=== PATIENT | female | born 1990 | race Caucasian/White ===

== ENCOUNTER 2022-04-19 06:35 | Inpatient (IN) | payer OTHER, SELFPAY ==
[2022-04-19] VITALS (86 sets, daily range): BP systolic 102–155; BP diastolic 55–89; PULSE 47–82; RESP 16–20; TEMP 36.6–36.9; O2SAT 93–100; BMI 63.6
[2022-04-19 07:10] LABS: Glucose, Point-of-Care* 88 mg/dl (60-115)
[2022-04-19 07:12] LABS: Hemoglobin* 11.9 gm/dL (12.0-16.0)
[2022-04-19] MEDS: OXYTOCIN 30 unit/500 ML in NS 30 UNIT/500 ML BAG IVPB (07:43)
[2022-04-19 07:56] LABS: SARS PCR* Negative SARS-CoV-2 (Negative)
[2022-04-19 08:53] LABS: Glucose, Point-of-Care* 85 mg/dl (60-115)
[2022-04-19] MEDS: LACTATED RINGERS 1000 ML 1,000 ML 125 ML IV ×2 (10:02→14:57)
--- NOTE | 2022-04-19 12:00 | W.PM.LDBA ---
Subjective History of Present Illness Narrative: Patient is being admitted to Labor and Delivery for IOL. She is a 32 year old at 41w0d GA. Her full history and physical was dictated by MELISSA Richards on 03.21.2022. Please see this for details. YFN of 04/12/2022 by LMP and confirmed with the first-trimester ultrasound. Patient is group B strep negative, rubella nonimmune, herpes zoster diagnosed to 01/2022, anemia, and diet controlled gestational diabetes. OBSTETRICAL HISTORY: 11/23/2020 right ectopic LMP: 07/06/2021. Last pap: 2016?. No history of abnormal pap, STI or PID, MRSA MEDICAL HISTORY: No chronic medical problems . 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 History of marijuana use, last use greater than 2 months ago. FAMILY AND GENETIC HISTORY: Negative for recurrent loss, defects, inheritable disease. OB - H&P: Exam Physical Exam: Vital signs: Temp Pulse Resp BP Pulse Ox 97.7 F 72 16 114/75 97 04/21/22 08:10 04/21/22 08:10 04/21/22 00:40 04/21/22 08:10 04/21/22 08:10 Constitutional: Constitutional: no acute distress Routine HEENT Exam: Head: Present normal inspection Detailed Labor and Delivery Exam: Patient Gravid: yes Tachysystole: No Routine Neurological Exam: Present alert, CN II-XII intact and moving all extremities Routine Psychiatric Exam: Present normal affect, normal thought process and cooperative OB - Problem Based A/P Additional Plan (1) Elective induction of labor planned: Start date: 04/19/22 Start time: 12:00 Problem details: postdates with well-controlled GDMA1 Status: Deleted Plan Admit to Center. Comfort measures as desired. Delivery/Labor/Induction Plan Plan: induction Induction method: AROM
[2022-04-19 12:13] LABS: Glucose, Point-of-Care* 77 mg/dl (60-115)
[2022-04-19 14:14] LABS: Glucose, Point-of-Care* 125 mg/dl (60-115)
--- NOTE | 2022-04-19 15:15 | PM.OBPNL ---
Pain Control Time Seen by Provider: 15:00 Comments: Moderate discomfort. No new concerns. Wondering how labor is progressing. Contractions Monitor mode: External Contraction frequency: 3 Pelvic Exam Dilation (cm): 8 Effacement (%): 100 Station: +1 Fetus (Single) Amniotic Membrane Status: AROM status: Category l Comments: scant fluid, positive scalp stim response. Assessment and Plan Pitocin rate (mU/min): 11 Assessment: induction ongoing Plan: continue present management Comments: Patient requesting epidural. RN beginning crystalloid bolus and notifying Anesthesia.
--- NOTE | 2022-04-19 15:57 | P.ANBPRC_ITS ---
PFSH PFS Social History Smoking Status: Never smoker Meds Home Medications and Allergies Home Medications Medication Instructions Recorded Confirmed Type ferrous sulfate PO 04/19/22 History prenat.vits,david,eix-lxgv-qhdcm 04/19/22 History Results Labs Labs: Laboratory Results - last 24 hr 04/19/22 04/19/22 04/19/22 07:00 07:00 07:00 Hgb 11.9 L SARS-CoV-2 (PCR) POC Glucose 88 Blood Type A Negative Antibody Screen POSITIVE Antibody Identification Anti-D 04/19/22 04/19/22 04/19/22 07:17 08:51 12:13 Hgb SARS-CoV-2 (PCR) Negative SARS-CoV-2 POC Glucose 85 77 Blood Type Antibody Screen Antibody Identification 04/19/22 14:13 Hgb SARS-CoV-2 (PCR) POC Glucose 125 H Blood Type Antibody Screen Antibody Identification Vital Signs Vital Signs: Last Vital Signs Temp 98 F 04/19/22 13:48 Pulse 67 04/19/22 14:55 Resp 18 04/19/22 13:48 BP 134/84 04/19/22 14:55 Pulse Ox 98 04/19/22 09:20 Weight: 74.298 kg Height: 160.02 cm Anesthesia Procedures Epidural Insertion Patient Location: OB Reason for Block: primary anesthetic Patient Position: sitting Performed By: Emmanuel Ness Preanesthetic Checklist: IV checked, risks and benefits discussed, surgical consent, monitors and equipment checked, pre-op evaluation, timeout performed and anesthesia consent Prep: chlorhexidine gluconate Monitoring: blood pressure monitoring, property assessment monitor, continuous pulse oximetry and heart rate Approach: midline Vertebral Space: lumbar (1-5) Epidural Technique: ALIZA saline Needle Type: Tuohy needle Injection Technique: continuous shot Needle gauge: 17 Needle Length (cm): 10 cm Needle Insertion Depth (cm): 6 Catheter Gauge: 19 Catheter Type: multi-orifice Catheter at skin depth (cm): 12 Test Dose Result: negative and lidocaine 1.5% with epinephrine 1 to 200,000 Events: other
[2022-04-19] MEDS: ROPIVACAINE 0.2 % PF 10 ML INJ 20 MG EPIDURAL (16:09)
[2022-04-19] MEDS: ROPIVACAINE 0.2% 100 ml 100 ML 12 MG EPIDURAL (16:09)
[2022-04-19] MEDS: LIDOCAINE 2% (PF) 5 ML VIAL EPIDURAL (16:09)
--- NOTE | 2022-04-19 17:01 | W.ANESCHARGE ---
Anesthesia Charges Start Date/Time Anesthesia Start Date: 04/19/22 Anesthesia Start Time: 15:50 Stop Date/Time Anesthesia Stop Date: 04/19/22 Anesthesia Stop Time: 16:50 Summary Emergency: No
[2022-04-19] MEDS: PHENYLEPHRINE 100 MCG/ML SYRINGE IVP (17:23)
[2022-04-19] MEDS: 5 % DEXTROSE/0.9% SOD CHLORIDE 1,000 ML 125 ML IV (18:10)
[2022-04-19 18:17] LABS: Glucose, Point-of-Care* 76 mg/dl (60-115)
--- NOTE | 2022-04-19 22:41 | PM.OBPRCVD ---
Procedure Delivery date: 04/19/22 Procedure Done: Global Events: GDMA1 (well-controlled), Labor Induction (for postdates) and Other (Rh negative. Herpes zoster, treated with Valtrex. Rubella NON-immune) Intrapartal Events: Labor Induction (Pitocin) Induction method: per pitocin protocol Delivery augmentation: rupture of membranes Delivery monitor: external FHT and internal FHT Route of delivery: Episiotomy description: None Laceration description: Perineal - 2nd Degree Delivery repair: Vicryl (3-0) Estimated blood loss (mL): 100 Anesthesia type: Epidural Disposition: floor Complications: None apparent Narrative: 32yo G2 now P1011 with surprise fetus at 41w0d admitted for IOL because of postdates. GDMA1 well-controlled. First episode of herpes zoster treated in second half of . Rh negative. GBS negative. Rubella NON-immune. Received Tdap. IOL with Pitocin protocol, augmented with AROM scant, clear. Excellent comfort with epidural. IV Pitocin wide open at . DIANELYS female dried, stimulated, placed on maternal abdomen. Cord clamped and cut after 60sec. Spontaneous, intact, trivascular placenta. Second-degree perineal laceration repaired with 3-0 Vicryl in usual fashion. EBL 100. No apparent complications. Sponge and sharp counts correct.. Infant Gender: Female presentation: vertex Placental Delivery Description: Spontaneous Cord Description: 3 Vessels OB Vag Delivery Procedures Additional Procedures Laceration Repair: Yes (second degree perineal)
[2022-04-20] VITALS (9 sets, daily range): BP systolic 102–114; BP diastolic 58–73; PULSE 60–75; RESP 16–18; TEMP 36.3–36.8; O2SAT 97
[2022-04-20] MEDS: IBUPROFEN 600 MG TABLET PO ×4 (01:50→23:51)
[2022-04-20] MEDS: ACETAMINOPHEN 500 MG TABLET 1000 MG PO ×2 (04:04→10:34)
[2022-04-20 07:19] LABS: Hemoglobin* 11.1 gm/dL (12.0-16.0)
[2022-04-20 08:18] LABS: Glucose, Point-of-Care* 79 mg/dl (60-115)
[2022-04-20 08:21] LABS: Glucose, Point-of-Care* 80 mg/dl (60-115)
--- NOTE | 2022-04-20 10:28 | SUR.ANES ---
Post epidural/delivery round. Pt happy with epidural. Back is fine. strength and motor normal. No complaints.
--- NOTE | 2022-04-20 10:45 | PM.OBPNVD1 ---
OB - PN:Subj Subjective Time Seen by Provider: 10:45 Date Seen: 04/20/22 Interval history: Elida is a 32-year-old 2 now para 1011 who had an uncomplicated IOL and vaginal delivery yesterday. induction was for GDM A1; Pitocin protocol was used, along with AROM. A second-degree perineal laceration was repaired in the usual fashion. , she is doing well. Lochia is moderate, without clots. She is voiding fully. Uterine and perineal pain is controlled with ibuprofen and acetaminophen. Daughter Julia is sleepy, and learning to latch. Baby is Rh positive. OB - PN: Obj Exam Physical Exam: Vital signs: Temp Pulse Resp BP Pulse Ox 97.7 F 63 18 109/71 97 04/20/22 07:22 04/20/22 07:22 04/20/22 07:22 04/20/22 07:22 04/20/22 07:22 Constitutional: Constitutional: no acute distress Routine Respiratory Exam: Comments: Normal respirations. No cough or wheeze. Routine Cardiovascular Exam: Comments: Regular rate and pressure. Minimal peripheral edema. Routine Abdominal Exam: Comments: Fundus firm at umbilicus. Routine Neurological Exam: Neurological: Present alert, CN II-XII intact and normal speech Routine Psychiatric Exam: Psychiatric: Present normal affect and normal thought process OB - PN: Obj Data Labs Labs: Laboratory Results - last 24 hr 04/19/22 04/19/22 04/19/22 07:00 12:13 14:13 Hgb POC Glucose 77 125 H Antibody Identification Anti-D 04/19/22 04/19/22 04/20/22 18:17 21:45 06:30 Hgb POC Glucose 76 79 80 Antibody Identification 04/20/22 07:05 Hgb 11.1 L POC Glucose Antibody Identification OB - PN: A/P Vaginal Delivery Assessment and Plan (1) Lactating mother: Status: Acute Assessment and Plan: assist with (2) Rh incompatibility in , delivered: Status: Acute Assessment and Plan: Rh IgG to be given. Plan Plan: routine care
[2022-04-21 00:40] VITALS: BP 112/70; RESP 16; TEMP 36.6; O2SAT 98
[2022-04-21 08:10] VITALS: BP 114/75; PULSE 72; TEMP 36.5; O2SAT 97
--- NOTE | 2022-04-21 12:01 | PM.OBDSVD1 ---
DS: Providers Provider Time Seen by Provider: 12:00 Date Seen: 04/21/22 Date of admission: 04/19/22 06:35 Admitting Clinician: Stu Aj MD Attending Physician on discharge: Stu Aj MD Date of Discharge: 04/21/22 DS: Diagnosis Discharge Diagnosis (1) Elective induction of labor planned: Status: Acute Problem details: GDMA1 postdates DS: Medications Discharge Medications Other Medication Instructions: OTC ibuprofen, acetaminophen, lanolin, pramoxine foam Exam Const: Vital Signs, click to edit/add: Vital Signs - 24 hr 04/20/22 12:24 04/20/22 16:05 04/20/22 16:43 Temperature 98 F 97.3 F L 97.3 F L Pulse Rate 68 Pulse Rate [Blood Pressure Cuff] 69 68 Respiratory Rate 18 18 18 Blood Pressure 110/58 L Blood Pressure [Ri ght Arm] 110/65 110/58 L Pulse Oximetry 97 97 04/20/22 20:48 04/20/22 23:51 04/21/22 00:40 Temperature 98.1 F 98.1 F 98 F Pulse Rate Pulse Rate [Blood Pressure Cuff] 65 Respiratory Rate 16 16 Blood Pressure Blood Pressure [Ri ght Arm] 113/73 112/70 Pulse Oximetry 98 04/21/22 08:10 Temperature 97.7 F Pulse Rate Pulse Rate [Blood Pressure Cuff] 72 Respiratory Rate Blood Pressure Blood Pressure [Ri ght Arm] 114/75 Pulse Oximetry 97 Documenting provider has reviewed patient's vital signs: yes Common normals: healthy appearing, alert and well nourished General appearance: comfortable Resp: Common normals: normal respiratory effort Effort & inspection: no respiratory distress Cardio: Common normals: regular rate, regular rhythm and peripheral pulses 2+ throughout Rate: regular rate Rhythm: regular rhythm Peripheral pulses: pulses 2+ throughout GI: Common normals: soft to palpation and non-tender Palpation: soft : Uterus: firm Lochia: moderate Extremity: Common normals: normal to inspection and no pedal edema Neuro: Common normals: no focal motor deficits and no sensory deficits noted Sensorium/orientation: alert Gait (neuro): normal gait Psych: Common normals: affect normal and speech normal Attitude: calm Speech: normal speech OB - DS: Summary Hospital Course Hospital Course: The patient is a 32 year old G 2 now P 1011 admitted to the Center on 04/19/22 for IOL at 41w0d. She had an uncomplicated vaginal delivery. She gave to a viable female infant who is . the patient has done well, without complications. She was discharged home on PPD 2 in stable condition. Peripartum Data Procedures: Labor epidural. Second-degree perineal laceration repaired in usual fashion. Infant Gender: Female Infant Discharge Plan: Home Time Spent with Patient Time attestation: Total time spent providing and/or coordinating discharge services: Time spent: Greater than 30 minutes Discharge Plan Discharge Disposition: Home, Self-Care Date of Admission: 04/19/22 06:35 Attending Provider on Discharge: Stu Aj Condition: Stable Anticipated Discharge Date/Time: 04/21/22 12:12 Discharge Medications: Continued ferrous sulfate [Iron (ferrous sulfate)] PO 0RF prenat.vits,david,ytm-kbrb-fjrwx 0RF Discharge Orders: Discharge Order (Routine); Ordered 04/21/22 Ordered By: Stu Aj Patient Education: OB Vaginal/Breast Feeding Activity Level: Activity as Tolerated Discharge Diet: Regular Follow Up Appointments: [facility] [Provider Group] (Follow up in 2 weeks and 6 weeks . Call clinic [phone] to make appointments. ) Dina Duff MD [Staff Physician] - Forms: [employer] Info Instructions
[2022-04-21] MEDS: IBUPROFEN 600 MG TABLET PO (12:45)
[2022-04-21] MEDS: MEASLES,MUMPS,RUBELLA VACC/PF 1 DOSE INJ 1 EACH SUBCUT (12:46)
--- NOTE | 2022-05-19 13:29 | W.PM.LDBA ---
Subjective History of Present Illness Time Seen by Provider: 12:00 Date Seen: 04/19/22 Narrative: Patient is being admitted to Labor and Delivery for IOL for postdates. She is a 32 year old with active fetus at 41w0d GA. Her full history and physical was dictated by [] on []. Please see this for details. [] OB - H&P: Exam Physical Exam: Vital signs: Temp Pulse Resp BP Pulse Ox 97.7 F 72 16 114/75 97 04/21/22 08:10 04/21/22 08:10 04/21/22 00:40 04/21/22 08:10 04/21/22 08:10 OB - Problem Based A/P Additional Plan (1) Elective induction of labor planned: Problem details: GDMA1 postdates Status: Deleted
== END 2022-04-21 13:30 | disposition home or self-care (01) | DRG 806 ==
PROVIDERS: Admitting Provider Obstetrics & Gynecology; PCP Obstetrics & Gynecology; Visit Provider Obstetrics & Gynecology
DX: O48.0 Post-term pregnancy (principal); O36.0930 Maternal care for other rhesus isoimmunization, third trimester, not applicable or unspecified; Z37.0 Single live birth; O24.429 Gestational diabetes mellitus in childbirth, unspecified control; O70.1 Second degree perineal laceration during delivery; Z3A.41 41 weeks gestation of pregnancy
CPT/HCPCS: 01967; 36415; 82947; 85018; 85461; 86850; 86870; 86900; 86901; 87635; A9270; J2370; J2791; J2795; J7042; J7120

== ENCOUNTER 2022-04-24 13:03 | Outpatient (CLI) | payer OTHER, SELFPAY ==
--- NOTE | 2022-04-26 15:17 | W.PM.LAC.MC ---
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 Gale Jaundice: Yes (facial) Reason for Consult Reason for Consult: difficulty latching, painful latch Past Experience Past Experience: No Current Frequency of Day Feedings: every 2 - 3 hours around the clock Both Breasts: Yes (mom attempts) Suck: strong Latch: baby looses the latchor it's shallow Pumping Pumping: Yes (mom pumps with almost every feeding) Quantity Pumped: about 1 oz total each time Supplementing EMB Supplement: Yes (POC give 30 - 40 ml EBM after mom attempts nursing) Formula Supplement: No (has not needed to supplement with formula for about 24 hours) Baby Elimination Number of Wet Diapers a Day: 3 - 4 Number of BM a Day: one since PCP visit on 04/23/22 Breast/Nipple Condition Breast Information: WNL Engorgement: No Maternal Nipple Condition - Left: Common Nipple Maternal Nipple Condition - Right: Common Nipple Sore Nipples: Yes Onsite Pre-Feed weight: 3.024 kg Post-Feed weight: 3.038 kg Milk Transferred (mL): 14 Pre-Nursing Left Nipple: Within Normal Limits Pre-Nursing Right Nipple: Within Normal Limits Post-Nursing Left Nipple: Within Normal Limits Post-Nursing Right Nipple: Within Normal Limits Assessments/Interventions Assessments/Interventions: Met with mom and this now 5 day old baby for consult.? Mom reports has been difficult since baby was born- baby has trouble maintaining the latch and when she does it's shallow; mom's nipples feel painful and raw.? She also reports that since baby's NB visit on 04/23 she's been supplementing with 30-40 ml of EBM every three hours d/t baby's weight loss.? She started pumping after baby's visit on 04/23 and gets about 1 oz total each time.? Breasts WNL- symmetrical with rounded lower quadrants, intramammary distance is < 1.5 inches.? Nipples are everted but short (especially on the left side); no damage noted. Baby has gained 141 grams (4.7 oz) since 04/23 and is now 7% below BW.? Per mom she has equal ROM when turning her head and moving her extremities.? She denied any bruising, caput, cephalohematoma, or shoulder dystocia at delivery.? Baby has a strong suck on a finger and easily extends her tongue past the gum line.? The tongue does have an indention at the tip when she lifts it crying but it has good lateral movement. ? The upper lip is somewhat difficult to flange, the lower frenulum is somewhat anterior.? The palate seems higher than normal. With verbal coaching and minimal assistance, mom was able to latch baby.? She opens wide and appears to latch deeply, but within 30 seconds looses the latch or slips from a deep latch to the nipple.? We attempted a session for 30-40 minutes (both sides, different positions) but baby was unable to maintain her latch for more than 15-20 seconds.? She transferred 14 ml and then mom offered about 40 ml EBM in a bottle.? She was shown paced feeding.? Plan: 1. Continue to practice nursing every 2-3 hours offering both sides, keep the nursing sessions to 20-30 minutes if you're struggling. 2. Try to pump after every feeding if possible, ok to skip one night pumping session. 3. Supplement baby with 15-45 ml EBM or formula after every feeding.? Suggested this is something dad could do and encouraged her to have him watch a paced feeding video. 4. F/U with Dr. Gale for a 2 week [facility].? I will f/u by phone on 04/26 to see how they are doing- will suggest another pre and post feeding visit; could suggest nipple shield, palliative care specialist for high palate and/or dental evaluation if baby continues to have difficulty maintaining the latch
== END 2022-04-24 13:04 | disposition home or self-care (01) ==
LOC: OB LAC 13:03
PROVIDERS: Visit Provider Obstetrics & Gynecology
DX: Z39.1 Encounter for care and examination of lactating mother (principal)
CPT/HCPCS: 99211

== ENCOUNTER 2022-09-12 20:26 | Emergency (ER) | payer OTHER, SELFPAY ==
[2022-09-12 21:06] VITALS: BP 106/74; PULSE 138; RESP 20; TEMP 37.7; O2SAT 97; BMI 23.0
[2022-09-12 22:05] LABS: PCR FLU A POSITIVE PCR FLU A (Negative); PCR FLU B Negative PCR FLU B (Negative); PCR RSV Negative PCR RSV (Negative)
[2022-09-12 22:11] LABS: SARS PCR* Negative SARS-CoV-2 (Negative)
--- NOTE | 2022-09-12 22:45 | ED.GENADULT ---
HPI - General Adult General Time Seen by Provider: 22:45 Date Seen: 09/12/22 Chief complaint: Cough Stated complaint: Fever Cough Chills Chest Pain Time Seen by Provider: 09/12/22 22:43 Source: patient and RN notes reviewed Mode of arrival: ambulatory Limitations: no limitations History of Present Illness HPI narrative: Patient is a 32-year-old female that became sick Friday afternoon with cough, sore throat, headache, body aches, some diarrhea, nasal congestion, hoarseness. She did not get her influenza vaccine this year. She is , has about a 5-month-old infant. She states Tylenol and ibuprofen just are not bringing fevers down. We had her result back when I went in to see her as nursing staff had collected in triage. She is influenza A positive. She states she will be getting flu vaccines from here on out. She is , reviewed with her that the latest literature out of [facility] did not have any significant evidence against using Tamiflu in breast-feeding. Reviewed with her that we certainly would even prescribe Tamiflu to a 5-month-old with influenza. She would like to try it as she is just miserable and is having a difficult time controlling her fevers. She states she is worried that this is going to go into pneumonia. I reviewed with her that that can be 1 of the complications but I would doubt that she would have this complication this early in the illness. Related Data Home Medications Medication Instructions Recorded Confirmed ferrous sulfate PO 04/19/22 06/05/22 prenat.vits,david,eve-srzk-vhnvt 1 tab PO DAILY 04/19/22 09/12/22 acetaminophen 325 mg tablet 650 mg PO Q4-6H PRN 09/12/22 09/12/22 (Tylenol) Previous Rx's Medication Instructions Recorded oseltamivir 75 mg capsule (Tamiflu) 75 mg PO BID 5 days #10 caps 09/12/22 Allergies Allergy/AdvReac Type Severity Reaction Status Date / Time No Known Drug Allergies Allergy Verified 09/12/22 21:09 Review of Systems Status of ROS: Reports: 6 or more systems reviewed and unremarkable except as noted in History and below [facility] Medical History (Updated 09/12/22 @ 23:02 by Jaylyn Valdovinos MD) GDM, class A1 examination following vaginal delivery Rh incompatibility in , delivered Surgical History (Updated 06/05/22 @ 08:21 by Dina Duff MD) S/P laparoscopic procedure (11/23/20) Social History (Updated 06/05/22 @ 08:25 by Dina Duff MD) Narrative: Relationship status: . Seth Education: Bachelor's degree Tobacco: lifetime nonsmoker Alcohol: 0-2 servings/day. None during . Illicit/Recreational drugs: H/O marijuana. Smoking Status: Never smoker Little interest or pleasure in doing things: several days Feeling down, depressed, or hopeless: not at all Exam Const: Vital Signs, click to edit/add: Vital Signs - 24 hr 09/12/22 21:06 Temperature 99.8 F H Pulse Rate [Left P ulse Oximeter] 138 H Respiratory Rate 20 Blood Pressure [Ri ght Upper Arm] 106/74 Pulse Oximetry 97 Oxygen Delivery Me thod Room Air Documenting provider has reviewed patient's vital signs: yes Common normals: no apparent distress, average body habitus, oriented x3, no limitations and alert General appearance: cooperative, well kempt and ill appearing HENMT: Common normals: normocephalic, head/scalp atraumatic, hearing grossly normal bilaterally, external ears normal, TM's normal bilaterally, external nose normal, nasal mucous membranes and turbinates normal, moist oral mucous membranes, oropharynx normal, dentition normal and gingiva normal Head and scalp: normocephalic and atraumatic Nose: external nose normal and nasal mucous membranes and turbinates normal External ear: external ears normal Tympanic membrane: TM's normal bilaterally Eye: Common normals: PERRL, EOMs intact bilaterally, conjunctivae normal and no scleral icterus Conjunctiva: conjunctiva(e) normal Pupil: PERRL Neck & C-Spine: Common normals: full ROM, no lymphadenopathy, supple, no meningeal signs and thyroid normal Thyroid: thyroid normal Resp: Common normals: normal respiratory effort, no retractions, no use of accessory muscles and clear to auscultation bilaterally Auscultation: clear to auscultation bilaterally Cardio: Common normals: regular rhythm, S1 normal heart sound, S2 normal heart sound and no murmurs Rate: tachycardic Rhythm: regular rhythm Heart sounds: S1 normal and S2 normal Neuro: Common normals: oriented x3 Sensorium/orientation: alert Meningeal signs: no meningeal signs Psych: Appearance: well kempt Course Vital Signs Vital signs: Initial Vital Signs Temperature 99.8 F H 09/12/22 21:06 Temperature Source Temporal Artery Scan 09/12/22 21:06 Pulse Rate 138 H 09/12/22 21:06 Respiratory Rate 20 09/12/22 21:06 Blood Pressure 106/74 09/12/22 21:06 Blood Pressure Mean 84 09/12/22 21:06 Blood Pressure Position Sitting 09/12/22 21:06 Pulse Oximetry 97 09/12/22 21:06 Oxygen Delivery Method 09/12/22 21:06 Vital Signs Temperature 99.8 F H 09/12/22 21:06 Pulse Rate 138 H 09/12/22 21:06 Respiratory Rate 20 09/12/22 21:06 Blood Pressure 106/74 09/12/22 21:06 Pulse Oximetry 97 09/12/22 21:06 Oxygen Delivery Method 09/12/22 21:06 Temperature 99.8 F H 09/12/22 21:06 Pulse Rate 138 H 09/12/22 21:06 Respiratory Rate 20 09/12/22 21:06 Blood Pressure 106/74 09/12/22 21:06 Pulse Oximetry 97 09/12/22 21:06 Oxygen Delivery Method 09/12/22 21:06 Medical Decision Making Lab Data Lab results reviewed: Yes I reviewed the patient's lab results Labs: Lab Results 09/12/22 Range/Units 20:55 SARS-CoV-2 (PCR) Negative SARS-CoV-2 (Negative) Influenza Type A (PCR) POSITIVE PCR FLU A A (Negative) Influenza Type B (PCR) Negative PCR FLU B (Negative) RSV (PCR) Negative PCR RSV (Negative) Critical Care Time Critical Care Time Critical Care Time: No Discharge Plan Discharge Clinical Impression: Influenza A Condition: Stable Instructions: Influenza (ED) Additional Instructions: Take Tamiflu as prescribed, try to get the prescription tomorrow morning as that will be when your next dose is due. Drink plenty of fluids. Your appetite for solids will improve as you feel better. Continue alternating Tylenol and ibuprofen for fever and symptom control. If you are not improving over the next week, feel you are worsening at any point or have concerning symptoms, please seek re-evaluation. Activity Level: Activity as Tolerated Discharge Diet: Regular Prescriptions: New oseltamivir [Tamiflu] 75 mg capsule 75 mg PO BID 5 Days Qty: 10 0RF No Action ferrous sulfate [Iron (ferrous sulfate)] PO prenat.vits,david,txq-hrrx-lmzqx 1 tab PO DAILY acetaminophen [Tylenol] 325 mg tablet 650 mg PO Q4-6H PRN Follow Up/Referrals: Provider,Not a Local [Primary Care Provider] - Stand Alone Forms: [employer] Info Instructions
[2022-09-12] MEDS: OSELTAMIVIR PHOSPHATE 75 MG CAPSULE PO (22:57)
--- OUTSIDE RECORDS SUMMARY | 2022-09-12 23:16 | XMS_ITS | Encounter Summary ---
:1990 Author Organization [facility] Address [address] [place] [address] Care Team Providers Name Role Phone Liz Dallas LUCAS, CN Primary Care Provider [phone] Encounter Details Date Type Department Care Team Description 11/16/2020 Notes/Orders [facility] A, GEOTECHNICAL ENGINEERING TECHNICIAN bleeding [address] [place] [address] [place], [place] [phone] [address] Social History Tobacco Use Types Packs/Day Years Used Date Smoking Tobacco: Never Assessed Sex Assigned at Date Recorded Not on file documented as of this encounter Plan of Treatment Not on filedocumented as of this encounter Procedures Procedure Name Priority Date/Time Associated Diagnosis Comme nts TEST Waiting 11/16/2020 10:39 AM Abnormal uterine Re sults for this (URINE) DOCUMENT COORDINATOR bleeding procedure are i n the results section. documented in this encounter Results (ABNORMAL) Test (Urine) (11/16/2020 10:39 AM DOCUMENT COORDINATOR) [employer] gist Method Time Signature HCG, Urine Positive (A) Negative 11/16/2020 [facility] 10:51 AM DOCUMENT COORDINATOR LABORATORY (HP) Specimen Anatomical Collection Method Collection Time Receive d Time (Source) Location / / Volume Laterality Urine Non-blood 11/16/2020 10:39 11/16/2020 Collection / AM DOCUMENT COORDINATOR 10:51 AM DOCUMENT COORDINATOR Unknown Liz Dallas APRN, CNM LAB_1 Performing Organization Address City/State/ZIP Code Phon e Number [facility] () [address] [place] [address] documented in this encounter Visit Diagnoses Diagnosis Abnormal uterine bleeding Unspecified disorder of menstruation and other abnormal bleeding from female genital tract documented in this encounter Care Teams Log Loader Relationship Specialty Start Date End Date Liz Dallas APRN, CNM PCP - General Certified Nurse Electrical Service Technician 11/22/[address] [place] [address] documented as of this encounter
--- OUTSIDE RECORDS SUMMARY | 2022-09-12 23:16 | XMS_ITS | Encounter Summary ---
:1990 Author [facility] Address [address] [place] [address] Care Team Providers Name Role Phone Edson Stover PA-C Primary Care Provider Reason for Visit Reason Comments Contraception Encounter Details Date Type Department Care Team Description 10/22/2013 Office Visit [facility] Medicin e Edson Stover, Contraception (Primary [address] [place] Dx) [place] [address] [phone] [place] [id number] Social History Tobacco Use Types Packs/Day Years Used Date Smoking Tobacco: Never Assessed Sex Assigned at Date Recorded Not on file documented as of this encounter Last Filed Vital Signs Vital Sign Reading Time Taken Comments Blood Pressure 118/72 10/22/2013 2:09 PM SCOREBOARD OPERATOR Pulse - - Temperature - - Respiratory Rate - - Oxygen Saturation - - Inhaled Oxygen Concentration - - Weight 59.9 kg (132 lb) 10/22/2013 2:09 PM SCOREBOARD OPERATOR Height 160 cm (5' 3) 10/22/2013 2:09 PM SCOREBOARD OPERATOR Body Mass Index 23.38 10/22/2013 2:09 PM SCOREBOARD OPERATOR documented in this encounter Patient Instructions Patient InstructionsEdson Stover PA-C - 11/10/2013 3:55 PM CST 1. Check on coverage of Mirena with your insurance company (see brochure). 2. Contact your previous clinic to get most recent pap smear and Chlamydia results faxed to our clinic, Attn: Edson/Zina, fax [phone] 3. Once next period starts, call to the clinic to schedule IUD insertion with LISET Du, Lianna Hickman MD, or Antoinette Frederick MD. All female providers in Family Medicine here at the [facility]. [phone] 4. On the day of your insertion visit, take ibuprofen 800 mg (4 mdlv-gep-ypzqpne tabs) about 1 hour prior to your visit. EBOARD OPERATOR documented in this encounter Progress Notes Edson Stover PA-C - 11/10/2013 4:01 PM CST SUBJECTIVE: This 23 y.o. female presents today with the following concern(s): Discuss contraception She is here today as a new patient to the clinic to discuss contraception options. She is not interested in OCPs, as she does not think she can remember to take them consistently. She is not currently sexually active, and periods have been regular. Patient's last menstrual period was 09/17/2013. She had a WELL exam at her previous clinic this past fall 2012, and had a normal pap smear and negative STD screening by her history. She is willing to have her previous clinic records faxed to our clinic for inclusion in her EPIC chart. Past Medical History: No chronic medical conditions. No history of abnormal pap smears. No history of STDs. Past Surgical History: [place] teeth extraction Adverse Drug Reactions: has No Known Allergies. Medications: currently has no medications in their medication list. Tobacco History: reports that she has never smoked. She has never used smokeless tobacco. Alcohol History: reports that she drinks about 4.0 ounces of alcohol per week. Marital History: single Family History: No family history of DVT/PE. Parents are healthy with no chronic medical conditions. OBJECTIVE: Vital Signs: BP 118/72 Ht 5' 3 (1.6 m) Wt 132 lb (59.875 kg) BMI 23.39 kg/m2 LMP 09/17/2013 General appearance: alert, cooperative, no distress, appears stated age Labs and Diagnostics: No results found for this or any previous visit (from the past 24 hour(s)). ASSESSMENT/PLAN: Ernestina was seen today for contraception. Diagnoses and associated orders for this visit: Contraception After discussion of all forms of contraception, she is most interested in Mirena IUD. We discussed how Mirena works, how it is inserted, potential adverse effects of insertion, potential benefits of Mirena, potential adverse effects of Mirena, and potential changes to the period cycle from Mirena. Continue using condoms consistently for back-up contraception, as well as STD prevention. Brochure givenfor Mirena, and she is advised to check with her insurance company on coverage prior to insertion visit. Advised she schedule insertion during next period, and to take ibuprofen 800 mg 1 hour prior to her appointment. She tells me that she has recently had pap smear and STD screening at her previous clinic, and will have those results faxed to me at the clinic so they can be included in her EPIC chart in anticipation of IUD insertion. Fax number given. The patient was discharged ambulatory and in stable condition. Total appointment time: 25 minutes. Total counseling time on the above-mentioned topics: 15 minutes. EBOARD OPERATOR documented in this encounter Plan of Treatment Not on filedocumented as of this encounter Visit Diagnoses Diagnosis Contraception - Primary Unspecified contraceptive management documented in this encounter Care Teams Unix Consultant Relationship Specialty Start Date End Date Edson Stover PA-C PCP - General 10/21/13 11/21/20 [address] [place] [address] documented as of this encounter
--- OUTSIDE RECORDS SUMMARY | 2022-09-12 23:16 | XMS_ITS | Encounter Summary ---
:1990 Author Organization [facility] Address [address] [place] [address] Care Team Providers Name Role Phone Edson tSover PA-C Primary Care Provider Encounter Details Date Type Department Care Team Description 11/18/2020 Lab Visit [facility] Abnormal uterine bleeding [address] [place], [place] [address] Social History Tobacco Use Types Packs/Day Years Used Date Smoking Tobacco: Never Smokeless Tobacco: Never Sex Assigned at Date Recorded Not on file documented as of this encounter Plan of Treatment Not on filedocumented as of this encounter Procedures Procedure Name Priority Date/Time Associated Diagnosis Comme nts HCG, QUANTITATIVE, Same Day 11/18/2020 8:08 AM Abnormal uterine Results for this SERUM DIRECTOR TOXICOLOGY bleeding procedure ar e in the results section. documented in this encounter Results (ABNORMAL) HCG, Quantitative, Serum (11/18/2020 8:08 AM DIRECTOR TOXICOLOGY) [facility] Method Time Signature HCG, Quantitative 138 (H) <=4 mIU/mL 11/18/2020 [facility] 10:17 AM DIRECTOR TOXICOLOGY HOSPITAL Specimen Anatomical Collection Method / Collection Time Recei starr Time (Source) Location / Volume Laterality Blood Venipuncture / 11/18/2020 8:08 11/18/2020 8:08 Unknown AM DIRECTOR TOXICOLOGY AM DIRECTOR TOXICOLOGY [facility] - 11/18/2020 10:[address] Expected ranges Negative: <5 mIU/mL Indeterminate: 5-25 mIU/mL Positive: >25 mIU/mL Suggest repeat testing of indeterminate result in 72 hours. Liz Dallas APRN, CNM LAB_1 Performing Organization Address City/State/ZIP Code Phon e Number [address] [address] documented in this encounter Visit Diagnoses Diagnosis Abnormal uterine bleeding Unspecified disorder of menstruation and other abnormal bleeding from female genital tract documented in this encounter Care Teams Printing Roller Polisher Relationship Specialty Start Date End Date Edson Stover PA-C PCP - General 10/21/13 11/21/20 [address] [place], [place] [id number] documented as of this encounter
--- OUTSIDE RECORDS SUMMARY | 2022-09-12 23:16 | XMS_ITS | Encounter Summary ---
:1990 Author Organization [facility] Address [address] [place] [address] Care Team Providers Name Role Phone Edson Stover PA-C Primary Care Provider Reason for Visit Reason Comments Annual Exam Encounter Details Date Type Department Care Team Description 07/30/2016 Office Visit Edson Casey, Annual physical exam (Primar y Dx); [address] PA-C Pap smear for cervical cancer screening; [address] [place] [address] [address] Screen for STD (sexually transmitted dis ease) [phone] [address] [place] [address] Social History Tobacco Use Types Packs/Day Years Used Date Smoking Tobacco: Never Smokeless Tobacco: Never Alcohol Use Standard Drinks/Week Comments Yes 8 (1 standard drink = 0.6 oz pure alcoho l) Sex Assigned at Date Recorded Not on file documented as of this encounter Last Filed Vital Signs Vital Sign Reading Time Taken Comments Blood Pressure 108/70 07/30/2016 10:31 AM CDT Pulse 64 07/30/2016 10:31 AM CDT Temperature - - Respiratory Rate - - Oxygen Saturation - - Inhaled Oxygen Concentration - - Weight 63.5 kg (140 lb) 07/30/2016 10:31 AM CDT Height 158.8 cm (5' 2.5) 07/30/2016 10:31 AM CDT Body Mass Index 25.2 07/30/2016 10:31 AM CDT documented in this encounter Progress Notes Edson Stover PA-C - 07/30/2016 10:40 AM CDT Preventive Exam HISTORY OF PRESENT ILLNESS: 26 y/o patient presents for a routine preventive physical exam. There is no problem list on file for this patient. SUBJECTIVE: The patient voices the following concerns: None Current contraception: condoms, IUD Medication refills requested: Requested Prescriptions No prescriptions requested or ordered in this encounter . No problem-specific assessment & plan notes found for this encounter. Past Medical/Surgical History/Family History: Reviewed and updated today under History tab in Electronic Medical Record. currently has no medications in their medication list. has No Known Allergies. Strap Machine Operator Automatic History: : LMP: No LMP recorded. Sexual History: reports that she currently engages in sexual activity and has had male partners. Shereports using the following methods of control/protection: Condom and IUD - Mirena. Last Pap Smear: at least 3 years She has not had abnormal pap smear. STD History: She has not been diagnosed with STDs. Social History: Social History Social History ??? Marital Status: Single Spouse Name: N/A ??? Number of Children: 0 ??? Years of Education: N/A Occupational History ??? 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 Smoking status: Never Smoker ??? Smokeless tobacco: Never Used ??? Alcohol Use: 4.8 oz/week 8 Standard drinks or equivalent per week ??? Drug Use: No ??? Sexual Activity: Partners: Male Control/ Protection: Condom, IUD - Mirena Comment: Mirena inserted 11/2013 Other Topics Concern ??? Not on file Social History Narrative Preventive Health Assessment: She does exercise regularly. She does not perform monthly self breast exam. Calcium intake is adequate. Pap smear: Due Mammogram: N/A Colonoscopy: N/A Cholesterol fractionation: Due Bone density scan: N/A There is no immunization history on file for this patient. OBJECTIVE: BP 108/70 mmHg Pulse 64 Ht 5' 2.5 (1.588 m) Wt 140 lb (63.504 kg) BMI 25.18 kg/m2 General appearance: alert, cooperative, no distress, appears stated age, Eyes: conjunctivae/corneas clear. PERRL, EOM's intact. Fundi benign, Ears: normal TM's and external ear canals AU, Throat: lips,mucosa, and tongue normal; teeth and gums normal, Neck: supple, symmetrical, trachea midline, no adenopathy, thyroid: not enlarged, symmetric, no tenderness/mass/nodules and no carotid bruit, Lungs: clear to auscultation bilaterally, Breasts: normal appearance, no masses or tenderness, Heart: regular rate and rhythm, S1, S2 normal, no murmur, click, rub or gallop, Abdomen: soft, non-tender; bowel sounds normal; no masses, no organomegaly, Pelvic: cervix normal in appearance, external genitalia normal, no cervical motion tenderness, vagina normal without discharge, IUD strings seen at cervical os, Extremities: extremities normal, atraumatic, no cyanosis or edema, Pulses: 2+ and symmetric, Skin: Skin color, texture, turgor normal. No rashes or lesions and Lymph nodes: Cervical, supraclavicular, andaxillary nodes normal. ASSESSMENT/PLAN: Ernestina was seen today for annual exam. Diagnoses and all orders for this visit: Annual physical exam Pap smear for cervical cancer screening - Pap Test Order Screen for STD (sexually transmitted disease) - Chlamydia and GC STD There is no problem list on file for this patient. Prevention or Hormone Therapy: condoms, IUD Discharged ambulatory and in stable condition. documented in this encounter Plan of Treatment Not on filedocumented as of this encounter Procedures Procedure Name Priority Date/Time Associated Diagnosis Comme nts PAP TEST ORDER Routine 07/30/2016 1:23 PM Pap smear for Result s for this CDT cervical cancer procedure ar e in screening the results section. ANATOMICAL PATH Routine 07/30/2016 1:23 PM Result s for this LIQUID BASED CDT procedure are i n the results section. CHLAMYDIA & GC (14 Routine 07/30/2016 1:23 PM Screen for STD R esults for this YEARS AND OLDER) CDT (sexually procedure a re in transmitted disease) the res ults section. documented in this encounter Results Pap Smear (07/30/2016 1:23 PM CDT) Specimen (Source) Anatomical Collection Method Collection Time Re ceived Time Location / / Volume Laterality 07/30/2016 1:23 PM CDT Narrative [facility] - 08/01/2016 11:19 AM CDT FINAL GYNECOLOGICAL CYTOLOGY REPORT Pathology #: [id number] ?Date Obtained: 07/30/2016 ? Date Received: 07/31/2016 INTERPRETATION/RESULTS: Negative for Intraepithelial Lesion or M alignancy. SPECIMEN ADEQUACY: Satisfactory for Evaluation. ??Endocervi david cells/transformation zone component present. Verified on 08/01/2016 ??by ALKA GOMEZ(ASCP) (electronic signature) CLINICAL NOTES: ?Abnormal bleeding: No, LMP: 100 416, Menstrual status: None Apply, ?Current form of therapy: None a pply LIQUID BASED PAP SMEAR SPECIMEN TYPE: ?ROUTINE CERVICAL PAP TEST PLEASE NOTE: The pap smear is a screening test design ed to aid in the detection of cervical cancer and its pre cursor lesions. It is not a diagnostic procedure and osman uld not be used as the sole means of detecting cervical cancer. Both false-positive and false-negative report s may occur. Performed at [facility], [facility] [place] [address] Edson Stover PA-C LAB_1 Performing Organization Address City/State/ZIP Code Phon e Number [facility] [address] [place] [address] [phone] Chlamydia and GC STD (07/30/2016 1:23 PM CDT) [facility] gist Method Time Signature Chlamydia Negative Negative [facility] Trachomatis STD Comment: Test Performed by Trust Officer Mediated Amplification CLIA Number [id number] N. gonorrhoeae STD Negative Negative PN SOFT Comment: Test Performed by Trust Officer Mediated Amplification [facility], [address] ??[address] CLIA Number [id number] Source STD Vagina [facility] Comment: CLIA Number [id number] Specimen Anatomical Collection Method Collection Time Receive d Time (Source) Location / / Volume Laterality 07/30/2016 1:23 PM 6 7:31 CDT PM CDT Edson Stover PA-C LAB_1 Performing Organization Address [facility] Phon e Number PN [facility] [address] [place] [address] Pap Test Order (07/30/2016 1:23 PM CDT) Analysis Performed At [facility] Time Signature Pap Smear Collected PN [facility] Monolayer tracking test Specimen Anatomical Collection Method Collection Time Receive d Time (Source) Location / / Volume Laterality 07/30/2016 1:23 PM 6 6:45 CDT AM CDT Edson Stover PA-C LAB_1 Performing Organization Address [facility] Phon e Number PN [facility] [address] [place] [address] [phone] documented in this encounter Visit Diagnoses Diagnosis Annual physical exam - Primary Routine general medical examination at a health care facility Pap smear for cervical cancer screening Screening for malignant neoplasm of the cervix Screen for STD (sexually transmitted dis ease) Screening examination for venereal disea se documented in this encounter Care Teams Offset Platemaker Relationship Specialty Start Date End Date Edson Stovre PA-C PCP - General 10/21/13 11/21/20 [address] [place], [place] [address] documented as of this encounter
--- OUTSIDE RECORDS SUMMARY | 2022-09-12 23:16 | XMS_ITS | Encounter Summary ---
:1990 Author Organization [facility] Address [address] [place] [address] Care Team Providers Name Role Phone Edson Stover PA-C Primary Care Provider Reason for Visit Procedure/Equipment (Routine) - Incomplete Specialty Diagnoses / Procedures Referred By Contact Refer red To Contact Diagnoses Bleeding in early Liz Dallas, COMMERCIAL PARTS PROFESSIONAL, CNM Procedures OBGYN First Trimester Ultrasound OBGYN First Trimester Ultrasound [address] [place] [address] Referral ID Status Reason Start Date Expiration Date Visits V isits Requested Authorized [id number] Incomplete 11/16/2020 02/15/2022 1 1 Encounter Details Date Type Department Care Team Description 11/16/2020 Office Visit Bunnlevel general assembler Liz Dallas, Abnormal u terine bleeding; Ultrasound COMMERCIAL PARTS PROFESSIONAL, CNM Bleeding in early [address] [place] [address] [place], [place] [phone] [id number] Social History Tobacco Use Types Packs/Day Years Used Date Smoking Tobacco: Never Assessed Sex Assigned at Date Recorded Not on file documented as of this encounter Plan of Treatment Not on filedocumented as of this encounter Procedures Procedure Name Priority Date/Time Associated Comments Diagnosis OBGYN FIRST Routine 11/16/2020 11:57 AM Bleeding in early Res ults for this TRIMESTER ULTRASOUND PHOTO STYLIST procedu re are in the results section. documented in this encounter Results OBGYN First Trimester Ultrasound (11/16/2020 11:57 AM PHOTO STYLIST) Anatomical Region Laterality Modality Pelvis Ultrasound Study GA Study Date Study YFN Working YFN (Source) W eight (Method) 11/16/2020 Result Name Value Comments GA by US Calc days FHR bpm Gest Sac cm Yolk Sac cm CRL cm NT cm BPD cm OFD HC cm AC cm FL cm HL cm CI % FL/BPD % FL/AC % HC/AC UAR - PSV cm/s UAR - S/D Ratio UAR - RI UAR - PI MCA - PSV cm/s MCA - S/D Ratio MCA - PI Lateral Ventricle cm CER cm Cisterna Magna cm LINDA cm Foot cm Specimen (Source) Anatomical Location Collection Method / Collectio n Time Received Time / Laterality Volume Narrative 11/16/2020 1:55 PM PHOTO STYLIST Early First Trimester Ultrasound Exam performed on: ??11/16/2020 Referring provider: Liz Dallas APRN, CNM Referring clinic: [place] TOP PRECIPITATOR OPERATOR HELPER ULTRASOUND Clinical indications: 1st trimester blee ding LMP: Patient's last menstrual period was 10/28/2020., Unknown Electron Gun Inspector(s) initials: HK The pelvic organs are imaged using: beltran svaginal. Measurements and comments Uterus: Longitudinal AP Transverse 6.9 3.6 5.0 cm Comments: ??symmetrical Right ovary: Longitudinal AP Transverse 2.4 2.0 3.6 cm Comments: with resolving corpus leutal c yst appears normal Left ovary: Longitudinal AP Transverse 2.3 1.6 1.1 cm Comments: appears normal Peritoneal fluid: absent Endometrium: 8.4 mm, trilaminar Mean gestational sac : Not visualized Yolk sac: Not visualized pole: not visualized heart beat: Not identified Impression: of unknown locatio n.there might be a collapsed gestational sac in the uterus. ?? Plan: she will get a quant HCG drawn and follow from there. , these findings were reviewed with the patient. She will follow up with her referring provider. Additional Comments: ??Positive urine pr egancy test done today. ?? Quantitative HCG pending. Ricky Singh MD 1:55 PM 11/16/2020 Liz Dallas APRN, [facility] documented in this encounter Visit Diagnoses Diagnosis Abnormal uterine bleeding Unspecified disorder of menstruation and other abnormal bleeding from female genital tract Bleeding in early Unspecified hemorrhage in early pregnanc y, unspecified as to episode of care documented in this encounter Care Teams Sleeve Separator Relationship Specialty Start Date End Date Edson Stover PA-C PCP - General 10/21/13 11/21/[address] [place] [address] documented as of this encounter
--- OUTSIDE RECORDS SUMMARY | 2022-09-12 23:16 | XMS_ITS | Continuity of Care Document ---
:1990 Author Organization [facility] Address [address] [address] [place] [address] Phone Care Team Providers Name Role Phone Stevenson Cummings MD Unavailable Unavailable Allergies, Adverse Reactions, Alerts Substance Reaction Status Criticality No Known Allergies Active No Informatio n Procedures Procedure Date New Level 3 Advance Directives Directive Yes / No Effective Date File Name No Information Encounters Encounter Practice Location Reason(s) Diagnoses Date Provider Provide rs Description For Visit Copied on Encounter [facility] Kirsten No Emiliano PURCELL [facility] Information -2020 Stevenson. [facility], [address] [address], [facility], [place] [address], , [place], [facility] [id number], [place], [place], [id number], tel:[phone] tel:[phone] New Level 3 [facility] [place] Comment RUQ pain Emiliano PURCELL [facility] (chief -2020 Stevenson. Provider: Edita HUTCHINS, complaint) [address] [place] [facility] [address], [facility], [place], [address] [place] [place] [address], [place], , [place], [facility], [id number], [place], [place], [place], [address]. [place] [id number], tel:[phone] [phone] . [phone] tel:[phone] Family History Family Member Type Diagnosis Age At Onset Mother Problem (finding) Thyroid disorder Payers Payer name Insurance type Covered democrat ID Authorization(s ) [facility] [id number] Social History Type Description Quantity Date Captured Comments Alcohol Use Details Unknown Caffeine Use Details Unknown Tobacco Use Status No Information Smoking Status No Information Sex Female Chief Complaint And Reason For Visit No Information Reason For Referral Reason For Referral No Information Plan Of Treatment Date Type Action Status No Information History Of Present Illness Encounter Date Complaint History Of Present I llness Comment Yuliet Arboleda is a very pleasant 31-year-old female who was referred by Jose Kahn for consultation regarding the patient's right upper quadrant pain. The patient 1st noted her problems a fter a right ectopic and right salpingectomy on Nov of this year. Shortly before an emergency room vi sit on December 25, she developed some right upper quadrant discomfort that she describes as severe and unrelenting. At that time, it was worst postprandially, but was generally pr esent all the time. She went to ED on 12/25/2020 and was d iagnosed with a right-sided chest wall pain. LFTs at that t arline were reportedly negative and right upper quadrant ultra sound subsequently ordered is reported by the patient is ne florencio for gallstones (she has a clear memory of that findi ng). Again, initially this discomfort was largely postpran dial and she felt that there was a bloating component t o it as well as a sharper pain component. She state s she tried a variety of dietary man Functional Status Date Functional Assessment No Information Instructions Date Instruction Additional Informati on No Information Assessments Type Assessment Date No Information Patient Care Teams Name Effective Dates (start - stop) Status M svetlana No Information
--- OUTSIDE RECORDS SUMMARY | 2022-09-12 23:16 | XMS_ITS | Encounter Summary ---
:1990 Author Organization [facility] Address [address] [place] [address] Care Team Providers Name Role Phone Liz Dallas LUCAS, MARIAMA Primary Care Provider [phone] Encounter Details Date Type Department Care Team Description 11/22/2020 Lab Visit [place] [facility] state, incidental [address] [place], [place] [address] Social History Tobacco Use Types Packs/Day Years Used Date Smoking Tobacco: Never Smokeless Tobacco: Never Sex Assigned at Date Recorded Not on file documented as of this encounter Plan of Treatment Not on filedocumented as of this encounter Procedures Procedure Name Priority Date/Time Associated Diagnosis Comme nts HCG, QUANTITATIVE, STAT 11/22/2020 2:38 PM state, Results for this SERUM TRANSPORTATION WORKER incidental procedure ar e in the results section. documented in this encounter Results (ABNORMAL) HCG, Quantitative, Serum (11/22/2020 2:38 PM TRANSPORTATION WORKER) [facility] gist Method Time Signature HCG, 115 (H) <=4 11/22/2020 [facility] Quantitative mIU/mL 3:57 PM TRANSPORTATION WORKER CENTRAL LAB Specimen Anatomical Collection Method / Collection Time Recei starr Time (Source) Location / Volume Laterality Blood Venipuncture / 11/22/2020 2:38 11/22/2020 2:38 Unknown PM TRANSPORTATION WORKER PM TRANSPORTATION WORKER Narrative [facility] - 11/22/2020 3:57 PM TRANSPORTATION WORKER Expected ranges Negative: <5 mIU/mL Indeterminate: 5-25 mIU/mL Positive: >25 mIU/mL Suggest repeat testing of indeterminate result in 72 hours. Aliza Gaines APRN, CNM LAB_1 Performing Organization Address City/State/ZIP Code Phon e Number [facility] [address] [address] documented in this encounter Visit Diagnoses Diagnosis state, incidental documented in this encounter Care Teams Internal Audit Senior Manager Relationship Specialty Start Date End Date Liz Dallas APRN, CNM PCP - General Certified Nurse Preparation Room Worker 11/22/[address] [place] [address] documented as of this encounter
--- OUTSIDE RECORDS SUMMARY | 2022-09-12 23:16 | XMS_ITS | Encounter Summary ---
:1990 Author Organization [facility] Address [address] [place] [address] Care Team Providers Name Role Phone Edson Stover PA-C Primary Care Provider Reason for Visit Reason Comments IUD Removal IUD INSERTION Encounter Details Date Type Department Care Team Description 03/09/2019 Office Visit [facility] Green e Edson Stover, Encounter for intrauterine d evice placement (Primary Dx); [address] PA-C Encounter for IUD removal; [address] [place] [address] [address] Encounter for insertion of intrauterine contraceptive device [phone] [place] [place] [id number] Social History Tobacco Use Types Packs/Day Years Used Date Smoking Tobacco: Never Smokeless Tobacco: Never Alcohol Use Standard Drinks/Week Comments Yes 8 (1 standard drink = 0.6 oz pure alcoho l) Sex Assigned at Date Recorded Not on file documented as of this encounter Progress Notes Edson Stover PA-C - 03/09/2019 3:20 PM CDT SUBJECTIVE Ernestina Arboleda is here for removal of existing IUD and insertion of a new intrauterine device. She has been counseled regarding the risks, benefits and alternatives to IUD use and her questions have been answered. She wishes to proceed with the insertion of the Mirena. has been ruled out by the following: Presence of an active IUD. Chlamydia Trachomatis STD (no units) Date Value 07/30/2016 Negative N. gonorrhoeae STD (no units) Date Value 07/30/2016 Negative PROCEDURE There were no vitals taken for this visit. A speculum was placed in the vagina and the cervix was prepped with Betadine. The IUD string was visualized and grasped with the ring forceps and the IUD was removed. A tenaculum was placed on the anterior lip of the cervix. The endometrial cavity was sounded to 8 cm. The Mirena IUD was inserted according to the manufacturers directions without difficulty. The IUD strings were trimmed to a length of 3 cm. She tolerated the procedure well. Ernestina Arboleda was taught how to check for the IUD string and was asked to return in six weeks for an IUD check. The IUD should be removed in 5 years and may be removed at any time at her request. Edson Stover PA-C documented in this encounter Plan of Treatment Not on filedocumented as of this encounter Visit Diagnoses Diagnosis Encounter for intrauterine device placem ent - Primary Encounter for insertion of intrauterine contraceptive device Encounter for IUD removal Encounter for removal of intrauterine co ntraceptive device Encounter for insertion of intrauterine contraceptive device documented in this encounter Care Teams Company Accountant Relationship Specialty Start Date End Date Edson Stover PA-C PCP - General 10/21/13 11/21/20 [address] [place], [place] [address] documented as of this encounter
--- OUTSIDE RECORDS SUMMARY | 2022-09-12 23:16 | XMS_ITS | Encounter Summary ---
:1990 Author Organization [email or web address] Address [address] [place] [address] Care Team Providers Name Role Phone Edson Stover PA-C Primary Care Provider Reason for Visit Reason Comments Patient Calling Back Encounter Details Date Type Department Care Team Description 01/12/2014 Telephone [place]en Pearson [facility] Lianna Hickman, Patient Calling Back [address] [place] [address] [phone] [place] [address] (Wo rk) Social History Tobacco Use Types Packs/Day Years Used Date Smoking Tobacco: Never Assessed Sex Assigned at Date Recorded Not on file documented as of this encounter Nursing Notes Alexandra Briscoe LPN - 01/12/2014 1:14 PM CDT Message was left for the pt with the information below. Lianna Balbuena MBBS - 01/12/2014 11:51 AM CDT As advised, there can be intermittent or persistent bleeding for first 3-6 mths, if no significant pain and she is able to feel threads, no interventions is advised. Madeline Loredo, RN - 01/12/2014 11:31 AM CDT Action requested: Symptoms Additional Info: Pt had her Mirena placed 12/10. Pt still has brownish to red discharge(more than spotting) daily. Using 2 tampons daily. Please call her to let her know how long she can expect this. Ernestina Arboleda (Self) [phone] (H) vm ok Joanie Oswald - 01/12/2014 11:22 AM CDT Patient calling calling back. Please assist. Luda Bailey LPN - 01/12/2014 11:13 AM CDT Left message for pt to call back. Triage [phone]. Pt had IUD placed 12-10-13. Tiffani Alexis - 01/12/2014 11:07 AM CDT pt is requesting to speak with a nurse regarding her IUD. documented in this encounter Plan of Treatment Not on filedocumented as of this encounter Visit Diagnoses Not on filedocumented in this encounter Care Teams Obstetrics Technician Relationship Specialty Start Date End Date Edson Stover PA-C PCP - General 10/21/13 11/21/20 [address] [place], [place] [address] documented as of this encounter
--- OUTSIDE RECORDS SUMMARY | 2022-09-12 23:16 | XMS_ITS | Encounter Summary ---
:1990 Author Organization [facility] Address [address] [place] [address] Care Team Providers Name Role Phone Edson Stover PA-C Primary Care Provider Reason for Visit Reason Comments Back Pain Dysuria Encounter Details Date Type Department Care Team Description 08/18/2014 Office Visit Braxton Nelson, UTI (urinary tract infection ) (Primary Dx); [address] PA-C Dysuria [address] [place] [address] [address] [phone] [place] [place] [id number] Social History Tobacco Use Types Packs/Day Years Used Date Smoking Tobacco: Never Assessed Sex Assigned at Date Recorded Not on file documented as of this encounter Last Filed Vital Signs Vital Sign Reading Time Taken Comments Blood Pressure 114/70 08/18/2014 10:40 AM CDT Pulse 76 08/18/2014 10:40 AM CDT Temperature 37.2 ??C (99 ??F) 08/18/2014 10:40 AM CDT Respiratory Rate - - Oxygen Saturation - - Inhaled Oxygen Concentration - - Weight 61.2 kg (135 lb) 08/18/2014 10:40 AM CDT Height - - Body Mass Index 23.91 10/22/2013 2:09 PM SQL SSIS DEVELOPER documented in this encounter Progress Notes Braxton Bhatt PA-C - 08/18/2014 11:37 AM CDT Subjective: Patient ID: Ernestina Arboleda is a 24 y.o. female. Chief Complaint: HPI Comments: The patient is a 24-year-old female who presents today with dysuria urgency frequency and back pain which started yesterday. She did feel the chills last night. Has not had documented fevers. No history of past urinary tract infections. Pain is relieved with Advil and by urinating. Feelsa little bit better today than she did last night. Back Pain Associated symptoms include dysuria. Dysuria Review of Systems Genitourinary: Positive for dysuria. Musculoskeletal: Positive for back pain. All other systems reviewed and are negative. Objective: Physical Exam Constitutional: She appears well-developed and well-nourished. No distress. HENT: Head: Normocephalic and atraumatic. Pulmonary/Chest: Effort normal. Abdominal: Soft. She exhibits no distension. There is no tenderness. Moderate suprapubic tenderness with CVA tenderness bilaterally. Urinalysis strongly positive for urinary tract infection, culture pending. Assessment: Diagnosis (ICD9) and Associated Orders ICD-9-CM 1. UTI (urinary tract infection) 599.0 ciprofloxacin (CIPRO) 500 mg tablet versus pyelo 2. Dysuria 788.1 Urinalysis Routine, Micro/Culture if Pos Plan: Treat as pyelonephritis with Cipro 500 mg b.i.d. x7 days, follow cultures. Encouraged increasing fluids and acidification of urine with cranberry juice recommend ibuprofen at anti-inflammatory doses. Consider Azo for discomfort as well. She should followup in urgent care over the weekend if high fevers or worsening condition. She states agreement and understanding of this plan. documented in this encounter Plan of Treatment Not on filedocumented as of this encounter Visit Diagnoses Diagnosis UTI (urinary tract infection) - Primary Urinary tract infection, site not specif ied Dysuria documented in this encounter Care Teams Electrical Development Engineer Relationship Specialty Start Date End Date Edson Stover PA-C PCP - General 10/21/13 11/21/20 [address] [place] [address] documented as of this encounter
--- OUTSIDE RECORDS SUMMARY | 2022-09-12 23:16 | XMS_ITS | Encounter Summary ---
:1990 Author Organization [facility] Address [address] [place] [address] Care Team Providers Name Role Phone Edson Stover PA-C Primary Care Provider Reason for Visit Reason Comments Injection Rhgam Encounter Details Date Type Department Care Team Description 11/17/2020 Nursing Visit [facility] Obstetrics and Need for rhogam due to Rh Gynecology negative mother (Primary [address]) [place], [place] [id number] Social History Tobacco Use Types Packs/Day Years Used Date Smoking Tobacco: Never Smokeless Tobacco: Never Sex Assigned at Date Recorded Not on file documented as of this encounter Progress Notes Sara Hall LPN - 11/17/2020 11:00 AM CST Yuliet Arboleda here for Rhogam Injection. Ordered per Aashish. See orders. self verbalized understanding of risks, possible side effects, and benefits of the injection and gave permission to administer Rhogam. No precautions or contraindications noted. Tolerated injection well. See immunization/injection report for administration documentation. N PRODUCER documented in this encounter Plan of Treatment Not on filedocumented as of this encounter Visit Diagnoses Diagnosis Need for rhogam due to Rh negative mothe r - Primary Need for prophylactic immunotherapy documented in this encounter Care Teams Digital Project Coordinator Relationship Specialty Start Date End Date Edson Stover PA-C PCP - General 10/21/13 11/21/20 [address] [place] [address] documented as of this encounter
--- OUTSIDE RECORDS SUMMARY | 2022-09-12 23:16 | XMS_ITS | Encounter Summary ---
:1992 Author Organization [facility] Address [address] [place] [address] Care Team Providers Name Role Phone Edson Stover PA-C Primary Care Provider Reason for Visit Reason Comments Dysuria Encounter Details Date Type Department Care Team Description 08/18/2014 Nurse Triage Edson Casey PA-C Dysuria [address] [place] [address] [place] [address] [phone] (Wo rk) Social History Tobacco Use Types Packs/Day Years Used Date Smoking Tobacco: Never Assessed Sex Assigned at Date Recorded Not on file documented as of this encounter Nursing Notes Hiral Mendieta RN - 08/18/2014 10:02 AM CDT Protocol: URINATION PAIN - RMEYOD-UOPDS-OC Affirmative: Side (flank) or lower back pain present Disposition of Schedule appt within 2 hrs, Triage to contact Primary office stat, or Go to suggested. Spoke with patient. Starting yesterday, she developed urinary frequency, burning, and blood in urine. Last night she developed flank and low back pain, rated 9/10. Still has mild frequency and pain with urinating. She felt chilled yesterday, does not today. Did not take temperature. She has been drinking cranberry juice. Advised per protocol, appt scheduled in 1 hr. Amy Fernandez - 08/18/2014 9:52 AM CDT Pt states she has a bladder infection and is requesting to speak to a nurse to discuss possible treatment prior to being seen. Please advise. documented in this encounter Plan of Treatment Not on filedocumented as of this encounter Visit Diagnoses Not on filedocumented in this encounter Care Teams Day Porter Relationship Specialty Start Date End Date Edson Stover PA-C PCP - General 10/21/13 11/21/[address] [place] [address] documented as of this encounter
--- OUTSIDE RECORDS SUMMARY | 2022-09-12 23:16 | XMS_ITS | Encounter Summary ---
:1990 Author Organization [facility] Address [address] [place] [address] Care Team Providers Name Role Phone Edson Stover PA-C Primary Care Provider Encounter Details Date Type Department Care Team Description 08/18/2014 Lab Visit [facility] Dysuria [address] [place] [address] Social History Tobacco Use Types Packs/Day Years Used Date Smoking Tobacco: Never Assessed Sex Assigned at Date Recorded Not on file documented as of this encounter Plan of Treatment Not on filedocumented as of this encounter Procedures Procedure Name Priority Date/Time Associated Comments Diagnosis URINE MICROSCOPIC STAT 08/18/2014 11:00 Result s for this AM CDT procedure are i n the results section. URINE CULTURE STAT 08/18/2014 11:00 Results fo r this AM CDT procedure are i n the results section. URINALYSIS ROUTINE, STAT 08/18/2014 10:50 Dysuria Resu lts for this MICRO/CULTURE IF POS AM CDT procedu re are in the results section. documented in this encounter Results (ABNORMAL) Urine Culture (08/18/2014 11:00 AM CDT) [facility] Method Time Signature Source Urine HP CONVERSION Site HP CONVERSION Urine Culture (A) HP CONVERSION Urine Culture ESCHERICHIA HP CONVERSION COLI (A) Comment: Escherichia coli >100,000 cfu/ml Specimen (Source) Anatomical Collection Method Collection Time Re ceived Time Location / / Volume Laterality Urine: 08/18/2014 11:00 AM CDT Organism Antibiotic Method Susceptibility Escherichia coli Amoxicillin/Clavulanic Acid 4: Sensitive Escherichia coli Ampicillin >=32: Resistant Escherichia coli Ampicillin/Sulbactam 16: Interm ediate Escherichia coli Cefazolin <=4: Sensitive Escherichia coli Ceftazidime <=1: Sensitive Escherichia coli Ceftriaxone <=1: Sensitive Escherichia coli Ciprofloxacin <=0.25: Sensiti ve Escherichia coli Ertapenem <=0.5: Sensitiv e Escherichia coli Gentamicin <=1: Sensitive Escherichia coli Imipenem <=0.25: Sensiti ve Escherichia coli Nitrofurantoin <=16: Sensitive Escherichia coli Piperacillin/Tazobactam <=4: Se nsitive Escherichia coli Tobramycin <=1: Sensitive Escherichia coli Trimethoprim/Sulfamethoxazole < =20: Sensitive Braxton Bhatt PA-C LAB_1 Performing Organization Address [facility] Phon e Number HP CONVERSION (ABNORMAL) URINE MICROSCOPIC (08/18/2014 11:00 AM CDT) Appear Method Time Signature Urine WBC >100 (H) 0 - 4 HP CONVERSION Urine RBC 10-24 (A) 0 - 2 HP CONVERSION Bacteria Urine Few (A) HP CONVERSION Comment: Urine culture has been ordered per reflex protocol. Epithelial Cells Few HP CONVERSION Specimen (Source) Anatomical Collection Method Collection Time Re ceived Time Location / / Volume Laterality Urine: 08/18/2014 11:00 AM CDT Narrative HP CONVERSION - 08/18/2014 10:55 AM CDT Performed at [facility], [address] [place] [address] Braxton Bhatt PA-C LAB_1 Performing Organization Address City/[facility] Phon e Number HP CONVERSION (ABNORMAL) URINALYSIS ROUTINE, MICRO/CULTURE IF POS (08/18/2014 10:50 AM CDT) Appear Method Time Signature Urine Type Urine:clean HP CONVERSION cat Turbidity Slightly Clear HP CONVERSION Cloudy (A) U BILI Negative Negative HP CONVERSION Blood Urine Large (A) Negative HP CONVERSION Glucose, Negative Neg-30 HP CONVERSION Qualitative U mg/dL Ketones Negative Negative HP CONVERSION Leukocyte Large (A) Negative HP CONVERSION Esterase Urine Nitrite Urine Negative Negative HP CONVERSION pH Urine 6.0 5.0 - 8.0 HP CONVERSION Protein Urine 30 (A) Neg - Trace HP CONVERSION mg/dL U Specific 1.010 1.005 - HP CONVERSION [place] 1.030 Urobilinogen Negative Negative HP CONVERSION Urine Specimen (Source) Anatomical Collection Method Collection Time Re ceived Time Location / / Volume Laterality Urine: 08/18/2014 10:50 AM CDT Narrative HP CONVERSION - 08/18/2014 10:53 AM CDT Performed at [facility], [address] [place], [place] [address] [address] Braxton Bhatt PA-C LAB_1 Performing Organization Address City/State/ZIP Code Phon e Number HP CONVERSION documented in this encounter Visit Diagnoses Diagnosis Dysuria documented in this encounter Care Teams Neighborhood Aide Relationship Specialty Start Date End Date Edson Stover PA-C PCP - General 10/21/13 11/21/[address] [place], [place] [address] [address] documented as of this encounter
--- OUTSIDE RECORDS SUMMARY | 2022-09-12 23:16 | XMS_ITS | Clinical Summary ---
:1992 Author Organization [employer] [facility] [place] [address] Care Team Providers Name Role Phone Pcp, No Primary Care Provider Unavailable Allergies No known active allergies Medications Medication Sig Dispensed Refills Start Date End Date Status levonorgestrel Inject 1 Each 0 03/09/2019 03/07/2024 Active intrauterine device intrauterine. (MIRENA) 20 mcg/24 hours (5 yrs) 52 mg IUD Active Problems No known active problems Social History Tobacco Use Types Packs/Day Years Used Date Never Smoker Smokeless Tobacco: Never Used Alcohol Use Standard Drinks/Week Comments Yes 0 (1 standard drink = 0.6 oz pure alcoho l) Alcohol Habits Answer Date Recorded How often do you have a drink containing alcohol? 2-3 times a week 03/15/2020 How many drinks containing alcohol do you have on a 3 or 4 03/15/2020 typical day when you are drinking? How often do you have six or more drinks on one Not asked occasion? Comment: Not asked Sex Assigned at Date Recorded Not on file Obstetrics History Last Filed Vital Signs Vital Sign Reading Time Taken Comments Blood Pressure 142/84 03/15/2020 2:06 PM CDT Pulse 82 03/15/2020 2:06 PM CDT Temperature 36.3 ??C (97.4 ??F) 03/15/2020 2:06 PM CDT Respiratory Rate 18 03/15/2020 2:06 PM CDT Oxygen Saturation 98% 03/15/2020 2:06 PM CDT Inhaled Oxygen Concentration - - Weight 60.8 kg (134 lb) 03/15/2020 2:06 PM CDT Height - - Body Mass Index - - Plan of Treatment Health Maintenance Due Date Last Done Comments COVID-19 vaccine series (#1) 1990 Tdap 01/04/2003 Depression screening for age 12+ 2004 BMI (ht and wt on same day) for age 18+ 01/04/2010 Hepatitis C screening for age 18-79 01/04/2010 Tetanus booster 2012 Influenza for age 9-49 06/20/2022 Pap test for age 21-65 08/30/2024 08/30/2021 Results Not on filefrom Last 3 Months Insurance Payer Benefit Plan / Subscriber ID Effective Dates Phone Addre ss Type Group [employer] [id number] 2019-Present [address] [place] [address] Care Teams Utilities Operator Relationship Specialty Start Date End Date Pcp, No PCP - General 09/24/18 .
--- OUTSIDE RECORDS SUMMARY | 2022-09-12 23:16 | XMS_ITS | Encounter Summary ---
:1990 Author Organization [facility] Address [address] [place] [address] Care Team Providers Name Role Phone Butr Liz Garvey APRN, CNM Primary Care Provider [phone] Reason for Visit Reason Comments Test Results r/o ectopic Encounter Details Date Type Department Care Team Description 11/16/2020 Nurse Triage [facility] Obstetrics Liz Dallas, Pregnan cy Test Results and Gynecology GALILEA ZAVALA (r/o ectopic) [address] [facility] [address] [place] [address] [place], [place] [phone] [id number] Social History Tobacco Use Types Packs/Day Years Used Date Smoking Tobacco: Never Assessed Sex Assigned at Date Recorded Not on file documented as of this encounter Progress Notes Sowmya Law RN - 11/18/2020 1:16 PM AMUSEMENT EQUIPMENT OPERATOR Addended by: SOWMYA LAW on: 11/18/2020 01:16 PM Modules accepted: Orders EMENT EQUIPMENT OPERATOR documented in this encounter Nursing Notes Aliza Dugan RN - 11/30/2020 8:16 AM CST Spoke with patient and she stated that she went to the ED in [facility]. She said that they did surgery one week ago from today and that it went well. She also reports that she has a f/u with a provider at [facility] on Friday. Patient denies any questions. Aliza Dugan RN 11/30/2020 8:17 AM Arlet Toro RN - 11/28/2020 10:08 AM CST Attempted to reach patient. Line busy. Arlet Trejo RN 11/28/2020, 10:08 AM Pamela Reyes RN - 11/23/2020 10:15 AM CST Component Latest Ref Rng & Units 11/22/2020 11/18/2020 11/16/2020 HCG, Quant. Preg. <=4 mIU/mL 115 (H) 138 (H) 114 (H) LMTCB to check on pt and to see if she went to ER last night as instructed. Pamela Kumar RN Arlet Toro RN - 11/22/2020 4:30 PM CST Pt had blood work and seen provider in [facility]. Anna flood in [place] HCG level 113 No US was done at the [place] clinic. Bleeding started beginning to mid October Like a period bleeding Wear a pad currently and changing the pad once a day Pain today started left side Lower abdomen Naval level Describes as cramping 0-10 pain scale 4 on pain scale Occasional cramping on and off but now today reports more noticeable. No chest pain No nausea Slight diarrhea yesterday No dizziness or lightheadedness Advised recommendations to be seen at [facility] for evaluation abnormal rising HCG levels. Pt lives in [facility] and is 15 minutes away from the closest hospital. Pt states she would be more comfortable going to her local hospital. Advised due to her symptoms and concerns for abnormal processing and of unknown location recommend she be seen [facility] for evaluation. At home currently and will be home shortly If she develops severe pain suddenly, dizziness, shortness of breath or faint feeling need to call 911. Pt in agreement with recommendations given and will be seen [facility] as recommended. Updated Liz Dallas CNM and in agreement with recommendations given to patient. Pt will call to give update with evaluation findings. Arlet Trejo RN 11/22/2020, 4:52 PM EMENT EQUIPMENT OPERATOR Liz Dallas APRN, CNM - 11/22/2020 4:28 PM CST HCG dropping as expected for non-viable . Did she have an US or HCG drawn at the other clinic? Liz Dallas APRN, CNM 11/22/2020, 4:28 PM EMENT EQUIPMENT OPERATOR Deloris Strickland RN - 11/22/2020 4:01 PM CST Component Latest Ref Rng & Units 11/22/2020 HCG, Quant. Preg. <=4 mIU/mL 115 (H) EMENT EQUIPMENT OPERATOR Arlet Trejo RN - 11/21/2020 12:05 PM CST Message left to call back. Arlet Trejo RN 11/21/2020, 12:05 PM EMENT EQUIPMENT OPERATOR Trini Mcgregor RN - 11/20/2020 1:06 PM CST Patient reached. Reports she scheduled an OB clinic appt and lab appt at a clinic in [place], [place]. States she spoke with their staff and have a plan to complete lab and see MD today. Reports sx have continued to be the same, no changes at this time. Advised of provider recommendations also. Advised to f/u in ED if sx worsen. Patient verbalized understanding. Feels comfortable with plan to go to OB clinic appt today. States she will go to ED if sx worsen at any time. Denies any questions. Given clinic number and fax number. Advised to call Careline after hours if sx change. Trini Card RN 11/20/2020, 1:08 PM Liz Craven APRN, CNM - 11/20/2020 12:52 PM CST Recommend ER evaluation, inconclusive results and she is still at risk for ectopic. Liz Dallas APRN, CNM 11/20/2020, 12:54 PM Trini Bright RN - 11/20/2020 9:52 AM CST Patient returning call. Informed of results and recommendations for provider and lab appts today. Patient states [place], [place] 5 hours away. States she does not exactly understand what her lab results mean. Reviewed results and precautions along with potential for ectopic with abnormal rise in HCG. Did discuss low HCG number and difficultly with definitive dx with imaging. Reviewed all precautions. Patient verbalized understanding. States closest ED is about 1 hour away from them. Reports ongoing mild bleeding with occasional cramping. Denies any severe sx. Wondering if she should return home now. States they are supposed to stay until Friday. Very concerned now and thinking of just going to closest ED for eval. Supported patient's decision of going to ED for reassurance. Advised would also send to CN for further review and recommendations. Patient agrees with plan. Will discuss with her now and call with any change in sx. Will also await call with provider recommendations though will go in prior if needed. Reiterated precautions again to patient. Liz, please review and advise. Thank you! Trini Card RN 11/20/2020, 10:06 AM EMENT EQUIPMENT OPERATOR Arlet Trejo RN - 11/20/2020 9:08 AM CST Message left to call back. Needs lab and office visit today 11/21/2020 per provider follow up recommendations. Arlet Trejo RN 11/20/2020, 9:09 AM EMENT EQUIPMENT OPERATOR Sowmya Law RN - 11/18/2020 11:40 AM CST Reason for Disposition ??? MILD vaginal bleeding (i.e., less than 1 pad / hour; less than patient's usual menstrual bleeding; not just spotting) Protocols used: - VAGINAL BLEEDING LESS THAN 20 WEEKS [id number] Sowmya Clement RN - 11/18/2020 11:33 AM CST Patient/caregiver services home request: update to provider team. Please see note below for details. Specific Request: consult/f/u call to patient on Friday. Clinician route to Flag for care team/Care team pool as patient is expecting a call back. Component Latest Ref Rng & Units 11/18/2020 HCG, Quant. Preg. <=4 mIU/mL 138 (H) Component Latest Ref Rng & Units 11/16/2020 HCG, Quant. Preg. <=4 mIU/mL 114 (H) HCG lab results resulted for today. Call out to patient for status update and then page electronic scanner operator OB. Verified patient identity using three identifiers: Yes Situation/Background (brief explanation of current symptoms/situation): Speaking with patient . Patient has had 3 weeks of vaginal bleeding. She found out she was on 11/16/20. She had an US at that time. Clinic is following her HCG levels. Per note below: Mean gestational sac??: Not visualized Yolk sac: Not visualized pole: not visualized heart beat: Not identified ?? Impression: of unknown location.there might be a collapsed gestational sac in the uterus. ? Today Patient continues to have vaginal bleeding. She changes a maxipad four times per day.this is unchanged/has not worsened. She had her rhogam shot yesterday. She has very minimal cramping in her abdomen which also is not new. [place]/Parity: Gestational Age (by YFN or LMP): Unknown Patient blood type: Results in Past 300 Days Result Component Current Result ABO A (11/16/2020) RH Negative (11/16/2020) Antibody Screen Interpretation Negative (11/16/2020) Does patient have RH negative blood type?yes, had rhogam shot yesterday. Reviewed with patient pertinent medical history and risk status (as it relates to the call): Yes Reviewed with patient pertinent medications (as they relate to call): Yes Reviewed with patient pertinent allergies (as they relate to call): N/A Plan; Will page electronic scanner operator OB provider to relay results/triage findings. Paging CNM electronic scanner operator for [facility]. CNM calling back Jacque Gaines CNM calling back and information shared. CNMare Gaines recommends repeat HCG level on Friday and f/u with clinic appointment . RN to place lab order and route note to clinic for f/u on Friday. Information shared with patient. Lab order placed. Patient to call back if symptoms change/worsen/other concerns. Patient states understanding however states that she is [place] and uncertain if she will be back Friday for lab draw. Rationale discussed with patient for f/u as recommended for this . She states understanding. She plans to try to figure out for Friday, will either come in for lab or call clinic on Friday am. Continue bleeding/pain precautions , reviewed reasons to be seen in ED. Patient to call back if symptoms change/worsen/other concerns. careline is available 12/05. She states understanding and is comfortable with plan. EMENT EQUIPMENT OPERATOR Deloris Strickland RN - 11/17/2020 11:55 AM CST CARELINE: watch for HCG results on 11/18. Call electronic scanner operator OB MD with these results for plan. Deloris Strickland RN 11/17/2020, 11:56 AM EMENT EQUIPMENT OPERATOR Cherise Cook - 11/17/2020 9:12 AM CST Pt has been scheduled. EMENT EQUIPMENT OPERATOR Deloris Strickland RN - 11/17/2020 9:08 AM CST Call to patient. Instructed her to have hcg drawn tomorrow. Also informed her that she is A negative, therefore, with her abnormal uterine bleeding, should have a rhogam shot (this is per plan from yesterday's visit). Did put 11 am appt on sp nurse Schedule for rhogam shot. She will come to sp clinic tomorrow for hcg. Deloris Strickland RN 11/17/2020, 9:10 AM CA : A thomas hold has been placed, please schedule the following appointment for this patient: Clinician: industrial organization manager nurse Date and time: today at 1100 Reason for visit: rhogam shot. Deloris Strickland RN 11/17/2020, 9:10 AM EMENT EQUIPMENT OPERATOR Deloris Strickland RN - 11/17/2020 8:55 AM CST Per plan, needs Rhogam as is RH negative. Antibody is negative Deloris Strickland RN 11/17/2020, 8:56 AM Deloris Cunningham RN - 11/17/2020 8:54 AM CST Component Latest Ref Rng & Units 11/16/2020 ABO/RH(D) A Rh Factor Negative Antibody Screen Negative EMENT EQUIPMENT OPERATOR Liz Dallas APRN, CNM - 11/16/2020 4:37 PM CST Recommend repeat HCG on Friday morning to ensure decreasing levels. F/u via video or phone next week. Liz Dallas APRN, CNM 11/16/2020, 4:37 PM EMENT EQUIPMENT OPERATOR Deloris Strickland RN - 11/16/2020 3:24 PM CST Per plan, HCG on Friday, ordered. Deloris Strickland RN 11/16/2020, 3:26 PM RH factor still in process. ASSESSMENT & PLAN: Diagnosis: + test, likely early miscarriage. ?? 1. Abnormal uterine bleeding Sent for STAT US now in [place]. Labs today: HCG, type and screen. Will need rhogam if RH negative. Will repeat HCG Friday morning if indicated. ?? Component Latest Ref Rng & Units 11/16/2020 HCG, Quant. Preg. <=4 mIU/mL 114 (H) Mean gestational sac : Not visualized Yolk sac: Not visualized pole: not visualized heart beat: Not identified ?? Impression: of unknown location.there might be a collapsed gestational sac in the uterus. ?? Plan: she will get a quant HCG drawn and follow from there. , these findings were reviewed with the patient. She will follow up with her referring provider. EMENT EQUIPMENT OPERATOR documented in this encounter Plan of Treatment Not on filedocumented as of this encounter Results (ABNORMAL) HCG, Quantitative, Serum (11/22/2020 2:38 PM AMUSEMENT EQUIPMENT OPERATOR) [facility] Method Time Signature HCG, 115 (H) <=4 11/22/2020 [facility] Quantitative mIU/mL 3:57 PM AMUSEMENT EQUIPMENT OPERATOR CENTRAL LAB Specimen Anatomical Collection Method / Collection Time Recei starr Time (Source) Location / Volume Laterality Blood Venipuncture / 11/22/2020 2:38 11/22/2020 2:38 Unknown PM AMUSEMENT EQUIPMENT OPERATOR PM AMUSEMENT EQUIPMENT OPERATOR [facility] - 11/22/2020 3:57 PM AMUSEMENT EQUIPMENT OPERATOR Expected ranges Negative: <5 mIU/mL Indeterminate: 5-25 mIU/mL Positive: >25 mIU/mL Suggest repeat testing of indeterminate result in 72 hours. Aliza Gaines APRN, CNM LAB_1 Performing Organization Address [facility]/ZIP [facility] Phon e Number [facility] [address] [address] (ABNORMAL) HCG, Quantitative, Serum (11/18/2020 8:08 AM AMUSEMENT EQUIPMENT OPERATOR) [facility] Method Time Signature HCG, Quantitative 138 (H) <=4 mIU/mL 11/18/2020 [facility] 10:17 AM [facility] Specimen Anatomical Collection Method / Collection Time Recei starr Time (Source) Location / Volume Laterality Blood Venipuncture / 11/18/2020 8:08 11/18/2020 8:08 Unknown AM AMUSEMENT EQUIPMENT OPERATOR AM AMUSEMENT EQUIPMENT OPERATOR [facility] - 11/18/2020 10:[address] Expected ranges Negative: <5 mIU/mL Indeterminate: 5-25 mIU/mL Positive: >25 mIU/mL Suggest repeat testing of indeterminate result in 72 hours. Liz Dallas APRN, CNM LAB_1 Performing Organization Address City/[facility]/ZIP [facility] Phon e Number [address] [address] documented in this encounter Visit Diagnoses Diagnosis Abnormal uterine bleeding - Primary Unspecified disorder of menstruation and other abnormal bleeding from female genital tract state, incidental documented in this encounter Care Teams Slat Pickler Relationship Specialty Start Date End Date Liz Dallas APRN, CNM PCP - General Certified Nurse Cisco Engineer 11/22/[address] [place] [address] documented as of this encounter
--- OUTSIDE RECORDS SUMMARY | 2022-09-12 23:16 | XMS_ITS | Encounter Summary ---
:1990 Author Organization [facility] Address [address] [place] [address] Care Team Providers Name Role Phone Edson Stover PA-C Primary Care Provider Reason for Visit Reason Comments CHEST PAIN NUMBNESS Encounter Details Date Type Department Care Team Description 10/05/2020 Nurse Triage Careline Unknown, CHEST PAIN; NUMBNESS [address] Physician [place], [place] [address] [phone] [place], [place] [id number] Social History Tobacco Use Types Packs/Day Years Used Date Smoking Tobacco: Never Smokeless Tobacco: Never Alcohol Use Standard Drinks/Week Comments Yes 8 (1 standard drink = 0.6 oz pure alcoho l) Sex Assigned at Date Recorded Not on file documented as of this encounter Nursing Notes Kristi Wharton RN - 10/05/2020 8:15 AM CST Verified patient identity: Yes Situation/Background (brief explanation of current symptoms/situation): Discomfort in her chest on her left side which started last night. Has been feeling it off and on for past week. Now feeling pressure on the top and underside of her left breast and some tingling in her left arm and a little up her neck.no difficulty breathing. With deep breaths can feel something, numbness or something in her left area. Chest was a little tight yesterday, not as much today.can still move arm fine. No recent fall or injury.no heart history, otherwise feels great.Did come back from [place] on Friday, she was there for 7 days. Tested for covid yesterday at [facility]. Does the patient currently have any of these Covid19 symptoms? (fever >100, sore throat OR new orworsening: cough, loss of taste or smell, shortness of breath) No Covid19 Symptoms - Other symptoms Reviewed with patient pertinent medical history(as it related to the call): Yes . Healthy per patient. Reviewed with patient pertinent medications (as they relate to call): Yes not on any medications or IUD. Reviewed with patient pertinent allergies (as they relate to call): N/A If directing the patient to schedule an appointment or be seen in the appropriate urgent care: In the last 14 days have you had close contact with a person known to have COVID-19 or been instructed to self-isolate? Close contact is defined as being within 6 feet for more than 15 minutes to persons with confirmed COVID-19 during the infectious period. The infectious period for COVID-19 starts 48 hours before someone???s symptoms appear and lasts for 10 days after symptoms first appear. Unsure Reason for Disposition ??? [1] Chest pain (or angina) comes and goes AND [2] is happening more often (increasing in frequency) or getting worse (increasing in severity) Answer Assessment - Initial Assessment Questions 1. LOCATION: Where does it hurt? Above and below left breast, in center of rib cage to the left. 2. RADIATION: Does the pain go anywhere else? (e.g., into neck, jaw, arms, back) Goes into left arm a bit, can feel everything just feel a tingling and once in a while can feel up neck. 3. ONSET: When did the chest pain begin? (Minutes, hours or days) 3 to 4 days ago. Originally thought anxiety as it was mostly at night. 4. PATTERN Does the pain come and go, or has it been constant since it started? Does it get worsewith exertion? Comes and goes. 5. DURATION: How long does it last (e.g., seconds, minutes, hours) A few minutes 6. SEVERITY: How bad is the pain? (e.g., Scale 1-10; mild, moderate, or severe) - MILD (1-3): doesn't interfere with normal activities - MODERATE (4-7): interferes with normal activities or awakens from sleep - SEVERE (8-10): excruciating pain, unable to do any normal activities mild 7. CARDIAC RISK FACTORS: Do you have any history of heart problems or risk factors for heart disease? (e.g., angina, prior heart attack; diabetes, high blood pressure, high cholesterol, smoker, or strong family history of heart disease) denies 8. PULMONARY RISK FACTORS: Do you have any history of lung disease? (e.g., blood clots in lung, asthma, emphysema, control pills) denies 9. CAUSE: What do you think is causing the chest pain? Unsure. 10. OTHER SYMPTOMS: Do you have any other symptoms? (e.g., dizziness, nausea, vomiting, sweating, fever, difficulty breathing, cough) Sometimes dizzy but just back from [place]. 11. : Is there any chance you are ? When was your last menstrual period? Denies. Protocols used: CHEST [id number] Plan:GO TO ED NOW: * You need to be seen in the Emergency Department. * Go to the ED at [facility]. Pt agrees with plan, no further questions. Advised patient/caller to call back CareLine if there are further questions or concerns . The CareLine is available 12/05. Kristi Wharton RN 10/05/2020, 8:30 AM C COMPOSER Nikia Javier - 10/05/2020 8:13 AM CST Verified patient identity using three identifiers: Yes Caller's relationship to patient: Self At which care system or clinic is the patient normally seen? Other (Clinic Name)none Symptoms Describe the reason for call/symptoms (include location and duration if applicable): Pt is having chest pain and numbness in right arm Plan:Caller transferred directly to CareLine nurse. C COMPOSER documented in this encounter Plan of Treatment Not on filedocumented as of this encounter Visit Diagnoses Not on filedocumented in this encounter Care Teams Turning Machine Operator Relationship Specialty Start Date End Date Edson Stover PA-C PCP - General 10/21/13 11/21/201[address] [id number] documented as of this encounter
--- OUTSIDE RECORDS SUMMARY | 2022-09-12 23:16 | XMS_ITS | Clinical Summary ---
:1990 Author [facility] Address [address] [place] [address] Care Team Providers Name Role Phone Liz Dallas LUCAS, CN Primary Care Provider [phone] Source Comments You are receiving this document as you are listed as the primary care provider,follow-up provider, or the patient has been referred to you for consultation.This is in compliance with the Medicare and Medicaid EHR Incentive Program,which states Providers who transition their patient to another setting of careor provider of care or refers their patient to another provider of care shouldprovide summarycare record for each transition of care or referral. [facility] Allergies No known active allergies Medications Medication Sig Dispensed Refills Start Date End Date Status levonorgestrel 1 Each by 0 03/09/2019 03/07/2024 Act crescencio (MIRENA) 20 MCG/24HR Intrauterine route IUDIndications: continuous. Encounter for insertion of intrauterine contraceptive device Active Problems No known active problems Immunizations Name Administration Dates Next Due Rho(D) - IG, IM 11/17/2020 Tdap 06/15/2013 Social History Tobacco Use Types Packs/Day Years Used Date Smoking Tobacco: Never Smokeless Tobacco: Never Alcohol Use Standard Drinks/Week Comments Yes 8 (1 standard drink = 0.6 oz pure alcoho l) Sex Assigned at Date Recorded Not on file Last Filed Vital Signs Vital Sign Reading Time Taken Comments Blood Pressure 111/76 11/16/2020 10:32 AM DISCOVERY GUIDE Pulse 70 11/16/2020 10:32 AM DISCOVERY GUIDE Temperature 37.2 ??C (99 ??F) 08/18/2014 10:40 AM CDT Respiratory Rate - - Oxygen Saturation - - Inhaled Oxygen Concentration - - Weight 63 kg (139 lb) 11/16/2020 10:32 AM DISCOVERY GUIDE Height 160 cm (5' 3) 11/16/2020 10:32 AM DISCOVERY GUIDE Body Mass Index 24.62 11/16/2020 10:32 AM DISCOVERY GUIDE Plan of Treatment Health Maintenance Due Date Last Done Comments Hep C Screening (Preventive 1990 Services) HepB (1) 1990 COVID-19 Vaccine (#1) 1990 HIV Screening (Preventive 2008 Services) Adult Preventive Visit 07/30/2018 07/30/2016 Pap 07/30/2019 07/30/2016, 07/30/2016 (Completed) Influenza (#1) 2022 DTaP/Tdap/Td (2 - Tdap) 06/15/2023 06/15/2013 Zoster/Shingles (1 of 2) 01/04/2042 HPV Vaccine Aged Out No longer eligib le based on patient's age to complete this to pic HepA Aged Out No longer eligib le based on patient's age to complete this to pic Hib Aged Out No longer eligib le based on patient's age to complete this to pic IPV (Polio) Aged Out No longer eligib le based on patient's age to complete this to pic MCV4 Aged Out No longer eligib le based on patient's age to complete this to pic Pneumococcal Aged Out No longer eligib le based on patient's age to complete this to pic Insurance Payer Benefit Plan Subscriber ID Effective Phone Address Typ e / Group Dates [employer] FULLY [id number] 2020-Prese Commercial INSURED nt [place] [id number] 2018-[place] [id number] Commercial [place] [id number] Guarantor Name Account Type Relation to Date of Phone Billing Patient Address Robles, Personal/Family Self 1990 [phone] [id number] (Home) [facility] [address] Robles, Personal/Family Self 1990 [id number] (Home) [place] [address] [place], Personal/Family Self 1990 [phone] [id number] (Home) [place] [address] Care Teams Industrial Accountant Relationship Specialty Start Date End Date Liz Dallas, LUCAS, CNM PCP - General Certified Nurse Supervisor Dry Cleaning 11/22/20 [address] [place], [place] [id number]
--- OUTSIDE RECORDS SUMMARY | 2022-09-12 23:16 | XMS_ITS | Encounter Summary ---
:1990 Author Organization [facility] Address [address] [place] [address] Care Team Providers Name Role Phone Edson Stover PA-C Primary Care Provider Reason for Visit Reason Comments Procedure Encounter Details Date Type Department Care Team Description 12/10/2013 Procedure Visit Kirsten Green e Lianna Hickman MBBS Procedure [address] [place] [address] [place] [address] [phone] (Wo rk) Social History Tobacco Use Types Packs/Day Years Used Date Smoking Tobacco: Never Assessed Sex Assigned at Date Recorded Not on file documented as of this encounter Last Filed Vital Signs Vital Sign Reading Time Taken Comments Blood Pressure 110/80 12/10/2013 10:24 AM CATTLE CARE WORKER Pulse 56 12/10/2013 10:24 AM CATTLE CARE WORKER Temperature - - Respiratory Rate - - Oxygen Saturation - - Inhaled Oxygen Concentration - - Weight 59 kg (130 lb) 12/10/2013 10:24 AM CATTLE CARE WORKER Height - - Body Mass Index 23.03 10/22/2013 2:09 PM CATTLE CARE WORKER documented in this encounter Progress Notes Lianna Hickman MBBS - 12/10/2013 11:27 AM CST IUD Insertion Procedure Note Pre-operative Diagnosis: IUD insertion Post-operative Diagnosis: same Indications: undesired fertility Procedure Details Urine test was not done. The risks (including infection, bleeding, pain, and uterine perforation) and benefits of the procedure were explained to the patient and Written informed consent wasobtained. Cervix cleansed with Betadine. Uterus sounded to 7.5 cm. IUD inserted without difficulty. String visible and trimmed. Patient tolerated procedure well. IUD Information: Mirena, Lot # [id number], Expiration date 06/04. Condition: Stable Complications: None Plan: The patient was advised to call for any fever or for prolonged or severe pain or bleeding. She was advised to use OTC analgesics as needed for mild to moderate pain. LE CARE WORKER documented in this encounter Plan of Treatment Not on filedocumented as of this encounter Visit Diagnoses Diagnosis Encounter for IUD insertion - Primary Encounter for insertion of intrauterine contraceptive device documented in this encounter Care Teams Pediatric Occupational Therapist Relationship Specialty Start Date End Date Edson Stover PA-C PCP - General 10/21/13 11/21/20 [address] [place], [place] [id number] documented as of this encounter
--- OUTSIDE RECORDS SUMMARY | 2022-09-12 23:16 | XMS_ITS | Encounter Summary ---
:1990 Author Organization [facility] Address [address] [place] [address] Care Team Providers Name Role Phone Edson Stover PA-C Primary Care Provider Reason for Visit Reason Comments Period Problems Encounter Details Date Type Department Care Team Description 11/16/2020 Office Visit [facility] Ob[facility] and Liz Dallas Abnor mal uterine bleeding (Primary Dx); Gynecology Clinic GALILEA ZAVALA Positive test [address] [place] [id number] [place], [place] [phone] [id number] Social History Tobacco Use Types Packs/Day Years Used Date Smoking Tobacco: Never Assessed Sex Assigned at Date Recorded Not on file documented as of this encounter Last Filed Vital Signs Vital Sign Reading Time Taken Comments Blood Pressure 111/76 11/16/2020 10:32 AM OPERATIONAL TRAINER Pulse 70 11/16/2020 10:32 AM OPERATIONAL TRAINER Temperature - - Respiratory Rate - - Oxygen Saturation - - Inhaled Oxygen Concentration - - Weight 63 kg (139 lb) 11/16/2020 10:32 AM OPERATIONAL TRAINER Height 160 cm (5' 3) 11/16/2020 10:32 AM OPERATIONAL TRAINER Body Mass Index 24.62 11/16/2020 10:32 AM OPERATIONAL TRAINER documented in this encounter Patient Instructions Patient InstructionsLiz Dallas, GALILEA ZAVALA - 11/16/2020 10:40 AM CST Precautions for Vaginal Bleeding During Many women have some vaginal bleeding when they are . In some cases, the bleeding is not serious and there aren't any more problems with the . But sometimes bleeding is a sign of a more serious problem. This is more common if the bleeding is heavy or painful. Examples of more serious problems include miscarriage, an ectopic , or a problem with the placenta. You may want to see your doctor again to be sure everything is okay. You may also need more tests tofind the cause of the bleeding. For some women, home treatment is all they need, but it depends on what is causing the bleeding. Be sure to tell your doctor if you have any new symptoms or if your symptoms get worse. The doctor has checked you carefully, but problems can develop later. If you notice any new problemsor new symptoms, call your doctor right away at. We realize that this is an extremely stressful time for you. Here are some guidelines to help make the next few days easier: Activity You may continue your usual activities, but avoid strenuous activity and heavy lifting. You should not put anything into your vagina; i.e., no tampons, douching, or intercourse until your provider allows this. Notify us if any of the following occur: ?? Fever greater than 100 degrees F orally. ?? Bleeding that soaks a pad in an hour. ?? Sudden severe pain or faintness. ?? Passing tissue. The difference between a blood clot and tissue is that a blood clot will break upin water, but tissue will not. Please save the tissue in water in a clean container and bring it with you when you see your provider, either at the clinic or in the emergency room. If these occur between 8am and 4:45pm Friday through Friday, call [phone] and speak with the OBphone nurse who will assist you to receive care or answer your questions. After hours call [phone]. ATIONAL TRAINER documented in this encounter Progress Notes Liz Dallas APRN, CNM - 11/16/2020 10:40 AM CST SUBJECTIVE: Yuliet Arboleda is a 30 y.o. old female who presents to clinic for Chief Complaint Patient presents with ??? Period Problems . Yuliet Arboleda reports having her IUD out in July. Subsequently had a normal period in September, followed by an abnormal period in Oct that has now lasted several weeks. She has not been using protection since the IUD was removed. She states that they are not actively trying for , but knows this is a possibility. Discussed that her UPT is positive today, but very scantly. Discussed that this is likely r/t a chemical and that with bleeding occurring around the time she was expecting her period this is unlikely to be a healthy . She is accepting of this news. Yuliet Arboleda denies cramping or pain. She does note slightly heavier bleeding in the last week.She is going out of town this weekend and would like some answers prior to leaving. Discussed labs and US is recommended RADHA. Review of Systems 10 point review of systems negative except as noted above. OBJECTIVE: BP 111/76 (BP Location: Right Arm, BP Cuff Size: Regular) Pulse 70 Ht 5' 3 (1.6 m) Wt 139 lb (63 kg) LMP 10/28/2020 No BMI 24.62 kg/m?? Patient appears alert and oriented. No acute distress. No physical completed today. ASSESSMENT & PLAN: Diagnosis: + test, likely early miscarriage. 1. Abnormal uterine bleeding Sent for STAT US now in [place]. Labs today: HCG, type and screen. Will need rhogam if RH negative. Will repeat HCG Friday morning if indicated. Total time today spent in today's visit including chart prep, review of records, patient evaluation and/or counseling, developing plan of care: 30 min. Liz Dallas APRN, CNM 11/16/2020, 11:07 AM ATIONAL TRAINER documented in this encounter Plan of Treatment Not on filedocumented as of this encounter Procedures Procedure Name Priority Date/Time Associated Diagnosis Comme nts TYPE AND SCREEN Routine 11/16/2020 11:06 AM Abnormal uterine R esults for this OPERATIONAL TRAINER bleeding procedure are i n the results section. ANTIBODY SCREEN Routine 11/16/2020 11:06 AM Abnormal uterine R esults for this OPERATIONAL TRAINER bleeding procedure are i n the results section. BLOOD TYPE Routine 11/16/2020 11:06 AM Abnormal uterine Resu lts for this OPERATIONAL TRAINER bleeding procedure are i n the results section. HCG, QUANTITATIVE, Same Day 11/16/2020 11:06 AM Abnormal uterin e Results for this SERUM OPERATIONAL TRAINER bleeding procedure ar e in the results section. documented in this encounter Results Antibody Screen (11/16/2020 11:06 AM OPERATIONAL TRAINER) [facility] Method Time Signature Antibody Screen Negative 11/16/2020 [facility] BLOOD Interpretation 5:18 PM OPERATIONAL TRAINER BANK Specimen Anatomical Collection Method / Collection Time Recei starr Time (Source) Location / Volume Laterality Blood Venipuncture / 11/16/2020 11:06 1 Unknown AM OPERATIONAL TRAINER 11:07 AM OPERATIONAL TRAINER Liz Dallas APRN, CNM LAB_1 Performing Organization Address [facility] Phon e Number [facility]OD [facility] [address] [place] [address] Blood Type (11/16/2020 11:06 AM OPERATIONAL TRAINER) athologist Signature ABO A 11/16/2020 [facility] BLOOD 5:06 PM OPERATIONAL TRAINER BANK RH Negative 11/16/2020 [facility] BLOOD 5:06 PM OPERATIONAL TRAINER BANK Specimen Anatomical Collection Method / Collection Time Recei starr Time (Source) Location / Volume Laterality Blood Venipuncture / 11/16/2020 11:06 1 Unknown AM OPERATIONAL TRAINER 11:07 AM OPERATIONAL TRAINER Liz Dallas APRN, CNM LAB_1 Performing Organization Address [facility] Phon e Number [facility] [address] [place] [address] (ABNORMAL) HCG, Quantitative, Serum (11/16/2020 11:06 AM OPERATIONAL TRAINER) [facility] Method Time Signature HCG, 114 (H) <=4 11/16/[address] [facility] Quantitative mIU/mL 3:11 PM OPERATIONAL TRAINER CENTRAL LAB Specimen Anatomical Collection Method / Collection Time Recei starr Time (Source) Location / Volume Laterality Blood Venipuncture / 11/16/2020 11:06 1 Unknown AM OPERATIONAL TRAINER 11:07 AM OPERATIONAL TRAINER Narrative [facility] CENTRAL LAB - 11/16/2020 3:11 PM OPERATIONAL TRAINER Expected ranges Negative: <5 mIU/mL Indeterminate: 5-25 mIU/mL Positive: >25 mIU/mL Suggest repeat testing of indeterminate result in 72 hours. Liz Dallas APRN, CNM LAB_1 Performing Organization Address City/State/ZIP Code Phon e Number [facility] [address] [address] (ABNORMAL) Test (Urine) (11/16/2020 10:39 AM OPERATIONAL TRAINER) [facility] gist Method Time Signature HCG, Urine Positive (A) Negative 11/16/2020 [facility] 10:51 AM OPERATIONAL TRAINER LABORATORY () Specimen Anatomical Collection Method Collection Time Receive d Time (Source) Location / / Volume Laterality Urine Non-blood 11/16/2020 10:39 11/16/2020 Collection / AM OPERATIONAL TRAINER 10:51 AM OPERATIONAL TRAINER Unknown Liz Dallas APRN, CNM LAB_1 Performing Organization Address City/[facility]/ZIP Code Phon e Number [facility] ([facility]) [address] [place] [phone] documented in this encounter Visit Diagnoses Diagnosis Abnormal uterine bleeding - Primary Unspecified disorder of menstruation and other abnormal bleeding from female genital tract Positive test examination or test, positive result documented in this encounter Care Teams Oriental Rug Stretcher Relationship Specialty Start Date End Date Edson Stover PA-C PCP - General 10/21/13 11/21/[address] [place] [id number] documented as of this encounter
--- OUTSIDE RECORDS SUMMARY | 2022-09-12 23:16 | XMS_ITS | Clinical Summary ---
:1990 Author Organization [place] Address [facility] [place] [address] Care Team Providers Name Role Phone [facility] Primary Care Provider [phone] Allergies No known active allergies Medications Medication Sig Dispensed Refills Start Date End Date Status NO ACTIVE MEDICATIONS 0 Active Social History Tobacco Use Types Packs/Day Years Used Date Smoking Tobacco: Former Smokeless Tobacco: Never Sex Assigned at Date Recorded Not on file Last Filed Vital Signs Vital Sign Reading Time Taken Comments Blood Pressure 110/70 11/20/2020 3:27 PM BUFFER INFLATED PAD Pulse 64 11/20/2020 3:27 PM BUFFER INFLATED PAD regular Temperature 36.4 ??C (97.5 ??F) 02/27/2013 7:21 PM CDT Respiratory Rate 14 02/27/2013 7:21 PM CDT Oxygen Saturation 99% 02/27/2013 8:30 PM CDT Inhaled Oxygen Concentration - - Weight 62.6 kg (138 lb) 11/20/2020 3:27 PM BUFFER INFLATED PAD Height 160 cm (5' 3) 11/20/2020 3:27 PM BUFFER INFLATED PAD Body Mass Index 24.45 11/20/2020 3:27 PM BUFFER INFLATED PAD Plan of Treatment Health Maintenance Due Date Last Done Comments ADVANCE CARE PLANNING 1990 ANNUAL REVIEW OF HM ORDERS 1990 HEPATITIS B IMMUNIZATION (1 of 3 - 1992 3-dose series) YEARLY PREVENTIVE VISIT 1992 COVID-19 Vaccine (#1) 1992 HIV SCREENING 01/04/2007 HEPATITIS C SCREENING 01/04/2010 PAP 01/04/2013 DTAP/TDAP/TD IMMUNIZATION (1 - 01/04/2017 Tdap) PHQ-2 (once per calendar year) 2021 INFLUENZA VACCINE (#1) 2022 IPV IMMUNIZATION Aged Out No longer eligi ble based on patient's age to complete this topic MENINGITIS IMMUNIZATION Aged Out No longe r eligible based on patient's age to complete this topic Pneumococcal Vaccine: Pediatrics Aged Out No longer eligible based on (0 to 5 Years) and At-Risk patie nt's age to complete this Patients (6 to 64 Years) topic Insurance Payer Benefit Plan / Subscriber ID Effective Phone Address T ype Group Dates [facility] [id number] 2020-Pres [phone] [address] O OPEN ACCESS ent [address] [place] [address] (Work) [id number] Yuliet Arboleda Personal/Family Self 1990 [id number] (Home) [place] [address] Care Teams Marketing Education Teacher Relationship Specialty Start Date End Date [facility] PCP - General 02/27/13 [address] [address] [id number]
--- OUTSIDE RECORDS SUMMARY | 2022-09-12 23:17 | XMS_ITS | Encounter Summary ---
:1990 Author Organization [place] Address [facility] [place] [address] Care Team Providers Name Role Phone [facility] Primary Care Provider [phone] Encounter Details Date Type Department Care Team Description 11/20/2020 Orders Only Her[facility]erto Veronica Abnormal pre gnancy Clinics - Luis Barraza MD (Primary Dx) [address] [address] [place] [address] [phone] Social History Tobacco Use Types Packs/Day Years Used Date Smoking Tobacco: Former Smokeless Tobacco: Never Sex Assigned at Date Recorded Not on file documented as of this encounter Plan of Treatment Not on filedocumented as of this encounter Results (ABNORMAL) HCG Quantitative , Blood ([id number]) (11/20/2020 1:59 PM INDUSTRIAL TECHNOLOGY TEACHER) [facility] Method Time Signature HCG Quantitative 118 (H) 0 - 5 IU/L 11/20/2020 [place] Serum 2:34 PM INDUSTRIAL TECHNOLOGY TEACHER [facility] Specimen Anatomical Collection Method Collection Time Receive d Time (Source) Location / / Volume Laterality Blood specimen 11/20/2020 1:59 PM 021 2:00 (specimen) INDUSTRIAL TECHNOLOGY TEACHER PM INDUSTRIAL TECHNOLOGY TEACHER Heriberto Drew MD LAB - BLOOD ORDERABLES Performing Organization Address City/State/ZIP Code Phon e Number M [phone] [place] [address] documented in this encounter Visit Diagnoses Diagnosis Abnormal - Primary Unspecified complication of , u nspecified as to episode of care documented in this encounter Care Teams Mens Locker Room Attendant Relationship Specialty Start Date End Date [facility] PCP - General 02/27/13 [address] [address] [id number] documented as of this encounter
--- OUTSIDE RECORDS SUMMARY | 2022-09-12 23:17 | XMS_ITS | Encounter Summary ---
:1990 Author Organization [place] Address [address] [facility] [place] [address] Care Team Providers Name Role Phone [facility] Primary Care Provider [phone] Encounter Details Date Type Department Care Team Description 11/20/2020 Orders Only [facility] Heriberto Drew rmal - [place] MD Madi [address] [facility] [address] [place] [address] [place] [address] [phone] (Wo rk) Social History Tobacco Use Types Packs/Day Years Used Date Smoking Tobacco: Former Smokeless Tobacco: Never Sex Assigned at Date Recorded Not on file COVID-19 Exposure Response Date Recorded In the last month, have you been in contact with No / Unsure 11/20/2020 1:56 PM REGIONAL DIRECTOR OF FINANCE someone who was confirmed or suspected to have Coronavirus / COVID-19? documented as of this encounter Plan of Treatment Not on filedocumented as of this encounter Procedures Procedure Name Priority Date/Time Associated Comments Diagnosis HCG QUANTITATIVE STAT 11/20/2020 1:59 PM Abnormal Results for this REGIONAL DIRECTOR OF FINANCE procedure are i n the results section. documented in this encounter Results (ABNORMAL) HCG Quantitative , Blood ([id number]) (11/20/2020 1:59 PM REGIONAL DIRECTOR OF FINANCE) [facility] Method Time Signature HCG Quantitative 118 (H) 0 - 5 IU/L 11/20/2020 [place] Serum 2:34 PM REGIONAL DIRECTOR OF FINANCE [facility] Specimen Anatomical Collection Method Collection Time Receive d Time (Source) Location / / Volume Laterality Blood specimen 11/20/2020 1:59 PM 021 2:00 (specimen) REGIONAL DIRECTOR OF FINANCE PM REGIONAL DIRECTOR OF FINANCE Heriberto Drew MD LAB - BLOOD ORDERABLES Performing Organization Address City/State/ZIP Code Phon e Number M [facility] [address] [facility] [id number] [place] [address] documented in this encounter Visit Diagnoses Diagnosis Abnormal Unspecified complication of , u nspecified as to episode of care documented in this encounter Care Teams Barrel Bridge Assembler Relationship Specialty Start Date End Date Clinic, [facility] PCP - General 02/27/13 [address] [place] [address] documented as of this encounter
--- OUTSIDE RECORDS SUMMARY | 2022-09-12 23:17 | XMS_ITS | Encounter Summary ---
:1990 Author Organization [place] Address [address] [facility] [place] [address] Care Team Providers Name Role Phone Tressa Brush Primary Care Provider [phone] Encounter Details Date Type Department Care Team Description 11/20/2020 Travel Social History Tobacco Use Types Packs/Day Years Used Date Smoking Tobacco: Former Smokeless Tobacco: Never Sex Assigned at Date Recorded Not on file COVID-19 Exposure Response Date Recorded In the last month, have you been in contact with No / Unsure 11/20/2020 1:56 PM EXTERMINATOR someone who was confirmed or suspected to have Coronavirus / COVID-19? documented as of this encounter Plan of Treatment Not on filedocumented as of this encounter Visit Diagnoses Not on filedocumented in this encounter Care Teams Cycle Touring Guide Relationship Specialty Start Date End Date Tressa Brush PCP - General 02/27/13 [address] [address] documented as of this encounter
--- OUTSIDE RECORDS SUMMARY | 2022-09-12 23:17 | XMS_ITS | Encounter Summary ---
:1990 Author Organization [place] Address [address] [facility] [place] [address] Care Team Providers Name Role Phone [facility] Primary Care Provider [phone] Reason for Visit Reason Comments abnormal Encounter Details Date Type Department Care Team Description 11/20/2020 [facility] - Luis Barraza MD (Primary Dx) [address] [place] [address] [place] [address] [phone] Social History Tobacco Use Types Packs/Day Years Used Date Smoking Tobacco: Former Smokeless Tobacco: Never Sex Assigned at Date Recorded Not on file COVID-19 Exposure Response Date Recorded In the last month, have you been in contact with No / Unsure 11/20/2020 1:56 PM REFRIGERATION INSULATOR someone who was confirmed or suspected to have Coronavirus / COVID-19? documented as of this encounter Last Filed Vital Signs Vital Sign Reading Time Taken Comments Blood Pressure 110/70 11/20/2020 3:27 PM REFRIGERATION INSULATOR Pulse 64 11/20/2020 3:27 PM REFRIGERATION INSULATOR regular Temperature - - Respiratory Rate - - Oxygen Saturation - - Inhaled Oxygen Concentration - - Weight 62.6 kg (138 lb) 11/20/2020 3:27 PM REFRIGERATION INSULATOR Height 160 cm (5' 3) 11/20/2020 3:27 PM REFRIGERATION INSULATOR Body Mass Index 24.45 11/20/2020 3:27 PM REFRIGERATION INSULATOR documented in this encounter Progress Notes Kayleen John MD - 11/20/2020 3:30 PM CST Yuliet Arboleda is a 30 year old with uncertain dates and an unplanned . She was seen in the [facility] and her HCG was found to be slowly rising from 114 to 138. Pt has had some light bleeding and menstrual like cramping. She is here on vacation but was called and told to seek f/u from the CNM who saw her previously. Her HCG today was 118 ROS: Constitutional, neuro, endocrine, gastrointestinal, genitourinary and psychiatric systems are otherwise negative. Past Medical History: Diagnosis Date ??? Known health problems: none Past Surgical History: Procedure Laterality Date ??? NO HISTORY OF SURGERY N/A No Known Allergies EXAM BP 110/70 Pulse 64 Ht 1.6 m (5' 3) Wt 62.6 kg (138 lb) BMI 24.45 kg/m?? Gen - NAD Abdomen - soft, non-tender Extremities - no edema A/P Early, nonviable 1. HCG currently falling (138 to 118). 2. Discussed possibility of ectopic including signs and symptoms. Also discussed expected course ofspontaneous miscarriage. 3. Pt is currently here with family and she will need to discuss if she wants to return home for f/u care vs getting her next HCG here in two days. She will call with her decision. KAYLEEN JOHN MD IGERATION INSULATOR documented in this encounter Nursing Notes Arlet Kauffman LPN - 11/20/2020 3:30 PM CST Chief Complaint Patient presents with ??? abnormal Initial BP 110/70 Pulse 64 Ht 1.6 m (5' 3) Wt 62.6 kg (138 lb) BMI 24.45 kg/m?? Estimated body mass index is 24.45 kg/m?? as calculated from the following: Height as of this encounter: 1.6 m (5' 3). Weight as of this encounter: 62.6 kg (138 lb). Medication Reconciliation: complete Arlet Kauffman LPN IGERATION INSULATOR documented in this encounter Plan of Treatment Not on filedocumented as of this encounter Visit Diagnoses Diagnosis Bleeding in early - Primary Unspecified hemorrhage in early pregnanc y, unspecified as to episode of care documented in this encounter Care Teams Account Processor Relationship Specialty Start Date End Date [facility] PCP - General 02/27/13 [address] [place] [address] documented as of this encounter
--- OUTSIDE RECORDS SUMMARY | 2022-09-12 23:17 | XMS_ITS | Encounter Summary ---
:1990 Author Organization [facility] Address [address] [facility] [place] [address] Care Team Providers Name Role Phone [facility] Primary Care Provider [phone] Reason for Visit Reason Comments Rectal Bleeding Encounter Details Date Type Department Care Team Description 02/27/2013 Emergency [facility] Marva Vicente MD [facility] [address] [place], [place] [id number] Constipation ([facility] Emergency Dep t Carmen Dowd L [facility] [address] [place], [place] [id number] Dx) [address] [place] [id number] Social History Tobacco Use Types Packs/Day Years Used Date Smoking Tobacco: Never Assessed Sex Assigned at Date Recorded Not on file documented as of this encounter Last Filed Vital Signs Vital Sign Reading Time Taken Comments Blood Pressure 118/81 02/27/2013 8:30 PM CDT Pulse 83 02/27/2013 7:21 PM CDT Temperature 36.4 ??C (97.5 ??F) 02/27/2013 7:21 PM CDT Respiratory Rate 14 02/27/2013 7:21 PM CDT Oxygen Saturation 99% 02/27/2013 8:30 PM CDT Inhaled Oxygen Concentration - - Weight 59 kg (130 lb) 02/27/2013 7:21 PM CDT Height 160 cm (5' 3) 02/27/2013 7:21 PM CDT Body Mass Index 23.03 02/27/2013 7:21 PM CDT documented in this encounter Discharge Instructions Discharge InstructionsMarva Vicente MD - 02/27/2013 10:07 PM CDT CONSTIPATION (Adult) Constipation is bowel movements that are less frequent than usual. Stools often become very hard anddifficult to pass. This may lead to abdominal pain and bloating. It may also cause painful bowel movements. Constipation may be due to a diet that???s low in fiber. Some medications, especially pain medications, can also cause it. Constipation may be treated with enemas, suppositories, laxatives or stool softeners. Your doctor will advise you which will work best for you. Follow the advice below to help avoid this problem in the future. HOME CARE Medication: Take any medicines as directed. Some laxatives are safe only for occasional use. Others can be taken on a regular basis. Talk to your doctor or pharmacist if you have questions. General Care: Prescription pain medications can cause constipation. If you are prescribed pain medications, ask the doctor whether you should also take a stool softener. A diet high in fiber with plenty of fluids helps to maintain regular, soft bowel movements. The following foods are good sources of dietary fiber: Cereals and breads: Whole grain cereal with bran, oatmeal, rolled oats, whole grain breads Fruits: All fruits (fresh and dried), raisins, prunes, apricots, berries, figs Vegetables: Any fresh vegetables, especially peas, broccoli, brussels sprouts, winter squash, green beans, cauliflower, collins beans, carrots Other: Popcorn, brown rice Drink plenty of water when you increase the amount of fiber you eat. FOLLOW UP with your doctor or return to this facility if symptoms do not improve in the next few days. You may require further tests or a referral to a specialist. GET PROMPT MEDICAL ATTENTION if any of the following occur: Fever over 100.4??F (38??C) Failure to resume normal bowel movements Increasing abdominal or back pain Nausea or vomiting Abdominal swelling Blood in the stool Weakness, dizziness or fainting Unexpected vaginal bleeding MEDICATION: DOCUSATE Docusate (brand names include Colace, Correctol, DSS and others) is used to treat constipation. It usually gives relief in 1-3 days. DIRECTIONS FOR USE: -- Take this medicine at bedtime. Capsules can be taken with an 8 ounce glass of water or juice. Theliquid form can be added to 4-8 ounces of juice or milk or formula. -- Decrease the dose or stop the medicine if you get diarrhea. -- Use this medicine only when needed. Do not use for more than 1 week unless told otherwise. WHAT TO WATCH FOR: POSSIBLE SIDE EFFECTS: Stomach pain, diarrhea or cramping, throat irritation from the liquid form --> (This should go away within a few hours after a dose. If symptoms persist, notify your doctor). ALLERGIC REACTIONS: Rash, itching, swelling, trouble swallowing or breathing --> (Contact your doctor or return to this facility promptly). IMPORTANT MEDICAL CONDITIONS: Before starting this medicine, be sure your doctor knows if you have any of the following conditions: -- Severe abdominal pain or vomiting -- or breast feeding DRUG INTERACTIONS: Before starting this medicine, be sure your doctor knows if you are taking any ofthe following drugs: -- Mineral Oil, aspirin -- Laxatives containing phenolphthalein (such as Ex-Lax) WARNINGS: -- Notify your doctor if your condition worsens or fails to respond to this medicine. If you feel your condition has changed or worsened, please call your doctor or return to the emergency department right away. AttachmentsThe following attachments cannot be sent through Care Everywhere. DOCUSATE (PERUVIAN)documented in this encounter Medications at Time of Discharge Medication Sig Dispensed Refills Start Date End Date NO ACTIVE MEDICATIONS 0 docusate sodium 100 MG Take 100 mg by 60 tablet 1 3 11/20/2020 tablet mouth daily. documented as of this encounter ED Notes Chen Frey RN - 02/27/2013 9:56 PM CDT Prt had BM with a few small hard stool. Pt states feels relief in abd/colon Marva Vicente MD - 02/27/2013 8:14 PM CDT History Chief Complaint: Rectal Bleeding HPI Yuliet Arboleda is a 23 year old female who presents with rectal bleeding. The patient first noticed blood with her bowel movement yesterday morning, then subsequent bright red blood dripping into the toilet immediately following the bowel movement. The patient chose to present to the ED today dueto the onset of rectal pain. She describes the pain as feeling like an urgency to have a bowel movement, however, she feels increased pain while bearing down. She rates the pain at a 3/10. She is currently having her menstrual bleeding, which started 2 days ago. She is convinced that the rectal bleeding is distinct from the vaginal bleeding due to the thinner, brighter appearance of her menstrual blood. She denies any recent hard stool, inserting any objects into her rectum, constipation, diarrhea, fever, or abdominal pain. Allergies: No known allergies Medications: The patient is not on regular medications Past Medical History: Reviewed patient history. There is no relevant prior health history. Past Surgical History: The patient does not have any past pertinent surgical history. Family / Social History: Marital Status: Single Social History: The patient denies tobacco use Alcohol use: No Review of Systems Constitutional: Negative for fever. Gastrointestinal: Positive for blood in stool and rectal pain. Negative for abdominal pain, diarrheaand constipation. Genitourinary: Positive for vaginal bleeding. 10 point review of systems performed and is negative except as above and in HPI. Physical Exam First Vitals: BP: 132/75 mmHg Pulse: 83 Temp: 97.5 ??F (36.4 ??C) Resp: 14 Height: 160 cm (5' 3) Weight: 58.968 kg (130 lb) SpO2: 98 % Physical Exam General: Resting on the gurney, appears comfortable Head: The scalp, face, and head appear normal Eyes: The pupils are equal, round, and reactive to light There is no nystagmus Conjunctivae normal ENT: Mouth/Throat: The oropharynx is normal Mucus membranes are moist CV: Regular rate Normal S1 and S2 No pathological murmur Resp: Breath sounds clear and equal bilaterally Non-labored, no retractions or accessory muscle use No coarseness No wheezing GI: Abdomen is soft, no rigidity No distension. No rebound tenderness. Non-surgical without peritoneal features. RUQ: Normal Epigastrium: Normal LUQ: Normal RLQ: Normal Suprapubic: Normal LLQ: Normal No tenderness to deep palpation. /Rectal: Dried Vaginal blood on the perineum and anus. No fissures or hemorrhoids. Very firm stoolin rectal vault, no gross blood on stool. MS: Normal muscular tone. No major joint effusions. No leg swelling. No calf tenderness. Normal motor assessment of all extremities. Good capillary refill noted. Skin: No rash or lesions noted. Neuro: Speech is normal and fluent. No apparent deficit. Psych: Awake. Alert. Normal affect. Emergency Department Course Laboratory: CBC: WBC 4.5, HGB 11.8, PLT 186, Rest WNL UA: Clear, yellow urine; RBC >182, WBC 5, KET 40, BLOO Large, SQUA 2, Rest WNL HCG: Negative Stool Occult: Positive Interventions: [place] [facility] Emergency Department Course: The patient was roomed. 8:14 PM The patient's medical charts were reviewed and I examined the patient. I discussed the plan of care with the patient which included laboratory work. The patient was placed on continuous cardiacmonitor and pulse oximetry. IV was inserted and blood was drawn. 9:05 PM Patient had enema and bowel movement with complete relief of her symptoms. I discussed with the patient the results of the above procedures and she will be discharged to homewith a prescription for Docusate. All questions were answered prior to discharge, and the patient was told to follow up with primary care doctor per discharge instructions. Reasons for return as well as follow up were reviewed with the patient. She understands and agrees to this plan. Impression & Plan Medical Decision Making: The patient is a 23 year old female who comes to the ED with complaint of rectal bleeding yesterday.She has not had any rectal bleeding since, but comes in today because she feels that there is something stuck in her bottom. She denies any trauma or any insertions. On rectal exam the patient had extremely firm stool with no hemorrhoids, no fissures and no tenderness. Her stool was heme positive, butwas grossly non-bloody. The patient is menstruating, and some of the blood that she saw in her toilet could have been due to menstruation, and also could have contaminated her stool sample as she did have blood in the perineum. The patient had a normal hemoglobin, and an enema was given due to the hard stool. After the enema the patient states that she feels completely better. She had no blood with the enema, and has no other pain or complaints. As the patient???s symptoms completely resolved with the enema, and she has no bloody stool, I was comfortable discharging the patient with the diagnosis of constipation. She was instructed to follow-up with her primary care provider to re-assess the potent ial bloody stool. The patient was comfortable with this plan and was eager for discharge. Differential diagnosis: GI bleed, constipation, hemorrhage, anal fissure, menstrual bleeding. Diagnosis: Constipation Disposition: The patient is discharged in improved condition. She was given return precautions and follow-up instructions and states understanding of these and has the ability to comply. I, Evelio Eduardo, am serving as a scribe on 02/27/2013 at 8:14 PM to personally document services performed by Dr. Vicente based on my observations and the provider's statements to me. Marva Vicente MD 03/03/13 1005 Miley Salinas RN - 02/27/2013 7:22 PM CDT Pt complains of rectal pain; it feels like there's a stick up there. States she had two bowel movements yesterday the first one didn't have any blood with it, but after I finished, the blood was just dripping out. 2nd BM was blood free. Pt states she is sure the blood was rectal and not related toher period. In triage airway, breathing and circulation intact without need for intervention. Alert and interacting appropriately for age and situation. HOME MEDICATIONS: List in EPIC is correct. documented in this encounter Plan of Treatment Not on filedocumented as of this encounter Procedures Procedure Name Priority Date/Time Associated Comments Diagnosis HCG QUALITATIVE URINE STAT 02/27/2013 8:48 PM Results for this CDT procedure are i n the results section. ROUTINE UA WITH STAT 02/27/2013 8:48 PM Result s for this MICROSCOPIC REFLEX TO CDT proced ure are in CULTURE the results section. CBC WITH PLATELETS STAT 02/27/2013 8:37 PM Res ults for this CDT procedure are i n the results section. OCCULT BLOOD STOOL STAT 02/27/2013 8:26 PM Res ults for this CDT procedure are i n the results section. documented in this encounter Results (ABNORMAL) UA with microscopic reflex to culture (02/27/2013 8:48 PM CDT) [facility] Method Time Signature Color Urine Yellow [facility] Appearance Urine Clear [facility] Glucose Urine Negative NEG mg/dL [facility] Bilirubin Urine Negative NEG [facility] Ketones Urine 40 (A) NEG mg/dL [facility] Specific [place] 1.026 1.003 - [place] Urine 1.035 [facility] Blood Urine Large (A) NEG [facility] pH Urine 5.5 5.0 - 7.0 [place] pH [facility] Protein Albumin 10 (A) NEG mg/dL [facility] Urobilinogen Normal 0.0 - 2.0 [place] mg/dL mg/dL [facility] Nitrite Urine Negative NEG [facility] Leukocyte Negative NEG [place] Esterase Urine [facility] Source Midstream [facility] WBC Urine 5 (H) 0 - 2 [place] /[facility] RBC Urine >182 (H) 0 - 2 [place] /[facility] Squamous 2 (H) 0 - 1 [place] Epithelial /HPF /HPF [facility] Mucous Urine Present (A) NEG /LPF [facility] Specimen Anatomical Collection Method Collection Time Receive d Time (Source) Location / / Volume Laterality Urine specimen URINE SPECIMEN 02/27/2013 8:48 PM 02/27 8:57 (specimen) OBTAINED BY CLEAN CDT PM CDT CATCH PROCEDURE / Unknown Marva Vicente MD LAB - URINE ORDERABLES Performing Organization Address City/State/ZIP Code Phon e Number M [facility] [address] [place], [place] [address] [facility] HCG qualitative urine (02/27/2013 8:48 PM CDT) P athologist Signature HCG Qual Urine Negative NEG [facility] Specimen Anatomical Collection Method Collection Time Receive d Time (Source) Location / / Volume Laterality Urine specimen URINE SPECIMEN 02/27/2013 8:48 PM 02/27 8:57 (specimen) OBTAINED BY CLEAN CDT PM CDT CATCH PROCEDURE / Unknown Marva Vicente MD LAB - URINE ORDERABLES Performing Organization Address City/[facility]/ZIP Code Phon e Number Mare [facility] [address] [place], [place] [address] [facility] (ABNORMAL) CBC (platelets, no diff) (02/27/2013 8:37 PM CDT) Analysis Performed At Patho logist Time Signature WBC 4.5 4.0 - 11.0 [place] 10e9/L [facility] RBC Count 3.95 3.8 - 5.2 [place] 10e12/L [facility] Hemoglobin 11.8 11.7 - [place] 15.7 g/dL [facility] Hematocrit 34.5 (L) 35.0 - [place] 47.0 % [facility] MCV 87 78 - 100 [facility] MCH 29.9 26.5 - [facility] 33.0 pg [facility] MCHC 34.2 31.5 - [place] 36.5 g/dL [facility] RDW 13.5 10.0 - [place] 15.0 % [facility] Platelet Count 186 150 - 450 [place] 10e9/L [facility] Specimen Anatomical Collection Method Collection Time Receive d Time (Source) Location / / Volume Laterality Blood specimen 02/27/2013 8:37 PM 013 8:42 (specimen) CDT PM CDT Marva Vicente MD LAB - BLOOD ORDERABLES Performing Organization Address City/[facility]/ZIP Code Phon e Number M [facility] [address] [place] [address] [facility] (ABNORMAL) Stool: occult blood (02/27/2013 8:26 PM CDT) Patholo gist Method Time Signature Occult Blood Positive (A) NEG [facility] Specimen Anatomical Collection Method Collection Time Receive d Time (Source) Location / / Volume Laterality Stool specimen RECTUM STRUCTURE / 02/27/2013 8:26 PM 0 02/27/2013 8:33 (specimen) Unknown CDT PM CDT Marva Vicente MD LAB - STOOLS ORDERABLES Performing Organization Address City/State/ZIP Code Phon e Number M [facility] [address] [place], [place] [address] [facility] documented in this encounter Visit Diagnoses Diagnosis Constipation - Primary documented in this encounter Administered Medications Inactive Administered Medications - up to 3 most recent administrations Medication Order MAR Action Action Date Dose Rate Site pink lady enema (COMPOUNDED) Given 02/27/2013 8:51 PM CDT 286 mLs 286 mL, Rectal, ONCE, On 02/27/13 at 2044, For 1 dose documented in this encounter Active and Recently Administered Medications Times are shown in CDT. 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
== END 2022-09-12 23:23 | disposition home or self-care (01) ==
PROVIDERS: Family Medicine; Emergency Provider Family Medicine
DX: J09.X2 Influenza due to identified novel influenza A virus with other respiratory manifestations (principal)
CPT/HCPCS: 87502; 87634; 87635; 99283; 99284; A9270

== ENCOUNTER 2023-09-19 09:07 | Outpatient (CLI) | payer OTHER, SELFPAY ==
--- NOTE | 2023-09-19 09:15 | CRLHL7_ITS ---
For Patients: As a result of the Cures Act, medical imaging exams and procedure reports are released immediately into your electronic medical record. You may view this report before your referring provider. If you have questions, please contact your health care provider. HISTORY: Dating and viability. COMPARISON: None available of this gestation. TECHNIQUE: Transvaginal ultrasound examination of the early was performed. FINDINGS: A single intrauterine gestational sac is seen with a pole. The crown-rump length measurement of 1.4 cm gives an estimated gestational age of 7 weeks 5 days with an estimated date of delivery of 05/02/2024. This does not correlate well with the LMP of 07/13/2023 which gives a clinical age of 9 weeks 5 days. Regular cardiac activity is seen at 161 BPM. The heart is located anteriorly in the chest than typical. Recommend follow-up ultrasound to verify appropriate appearance of cardiac structures. There is irregular hypo echogenicity around the gestational sac, nonspecific. The patient does not report any bleeding to suggest subchorionic hemorrhage. These are probably slightly prominent venous lakes. There is no sign of free fluid in the pelvis. A probable corpus luteum cyst of is present in the right ovary measuring up to 2.6 centimeters in diameter. The ovaries are otherwise normal in appearance. IMPRESSION: Single intrauterine gestation with estimated age of 7 weeks 5 days. Regular cardiac activity is seen. Please note that the heart is located more anteriorly than typical in the chest. Recommend follow-up ultrasound confirmed appropriate appearance of the heart. Dictated by Aman Evans MD @ 09/22/2023 11:00:00 PM (Electronically Signed)
== END 2023-09-19 09:08 | disposition home or self-care (01) ==
PROVIDERS: Visit Provider Registered Nurse
DX: Z34.91 Encounter for supervision of normal pregnancy, unspecified, first trimester (principal); Z3A.09 9 weeks gestation of pregnancy
CPT/HCPCS: 76817; 86592; 86703; 86704; 86706; 86762; 86787; 86803; 86850; 86900; 86901; 87086; 87340; 87491; 87591

== ENCOUNTER 2023-10-02 09:39 | Outpatient (CLI) | payer OTHER, SELFPAY | END 2023-10-02 09:40 | disposition home or self-care (01) | PROVIDERS: Visit Provider Obstetrics & Gynecology | DX: O20.9 Hemorrhage in early pregnancy, unspecified (principal); O36.4XX0 Maternal care for intrauterine death, not applicable or unspecified | CPT/HCPCS: 76816; 86850; J2791 ==

== ENCOUNTER 2023-12-10 08:17 | Emergency (ER) | payer OTHER, SELFPAY ==
[2023-12-10] VITALS (15 sets, daily range): BP systolic 107–132; BP diastolic 67–83; PULSE 55–79; TEMP 36.8; O2SAT 96–100; BMI 25.7
--- NOTE | 2023-12-10 09:02 | ED_ITS ---
HPI - General Adult General Time Seen by Provider: 09:02 Date Seen: 12/10/23 Chief complaint: Cough Stated complaint: L side lung pain Time Seen by Provider: 12/10/23 09:01 Source: patient and RN notes reviewed Mode of arrival: ambulatory Limitations: no limitations History of Present Illness HPI narrative: This 33-year-old female is coming into the ER with left chest pain. It is always there but worsens with coughing or breathing. She was on a cruise out of floor when this started. She has been ill for about 2-3 weeks. There has been no fever, no sore throat. She has just had a dry cough that is progressively worsening. She feels like the cough might be loosening up a bit. She did go to clinic on Friday, was placed on a Z-Sahil, has taken 2 doses. The left chest pain has been there since Friday, it is constantly there but worsens with coughing or breathing. She did look up pleurisy but symptoms seem to be worsening. There is no prior history of blood clots for herself, no known family history of blood clots. She did not have any testing as to the underlying etiology of this but has been sick for about 2-3 weeks now. She is not on any oral contraceptives, denies any chance for . She has no prior respiratory history like asthma. She has had no calf or leg pain. Related Data Home Medications Medication Instructions Recorded Confirmed prenat.vits,david,vin-xder-gqqgh 1 tab PO DAILY 04/19/22 12/08/23 Previous Rx's Medication Instructions Recorded azithromycin 250 mg tablet See Rx Instructions PO .COMPLEX #6 12/08/23 tabs prednisone 20 mg tablet 20 mg PO BID #10 tabs 12/10/23 tramadol 50 mg tablet 50 mg PO QHS PRN pain #7 tabs 12/10/23 Allergies Allergy/AdvReac Type Severity Reaction Status Date / Time No Known Drug Allergies Allergy Verified 12/10/23 09:47 Review of Systems Status of ROS: Reports: 6 or more systems reviewed and unremarkable except as noted in History and below [facility] Medical History SAB (spontaneous ) ?O03.9 - Complete or unspecified spontaneous without complication (ICD-10) abnormality affecting management of mother, single gestation ?O35.9XX0 - Maternal care for (suspected) abnormality and damage, unspecified, not applicable or unspecified (ICD-10) History of gestational diabetes in prior , currently ?O09.299 - Supervision of with other poor reproductive or obstetric history, unspecified trimester (ICD-10) ?Z86.32 - Personal history of gestational diabetes (ICD-10) GDM, class A1 ?O24.410 - Gestational diabetes mellitus in , diet controlled (ICD- 10) Rh incompatibility in , delivered ?O36.0990 - Maternal care for other rhesus isoimmunization, unspecified trimester, not applicable or unspecified (ICD-10) Surgical History S/P laparoscopic procedure (11/23/20) ?Z98.890 - Other specified postprocedural states (ICD-10) Family History Mother High cholesterol Father No problems noted. Paternal Grandmother Melanoma Social History Narrative: Relationship status: . Seth Education: Bachelor's degree Tobacco: lifetime nonsmoker Alcohol: 0-2 servings/day. None during . Illicit/Recreational drugs: H/O marijuana. What is your current living situation?: I presently have a place to live Problems where you live: no known problems In the past 12 months, utilities in danger of being shut off: no In past 12 months, lack of transportation kept you from medical appts, meetings, work, or getting things needed for daily living: no In the past 12 mos, have been you worried that your food would run out before you had money to buy more?: never true In the past 12 mos, the food you bought just didn't last and you didn't have money to buy more?: never true Smoking Status: Never smoker Do you use any of these nicotine containing products: None Second hand tobacco smoke exposure: No How often do you have a drink containing alcohol: monthly or less How many standard drinks containing alcohol do you have on a typical day: 1 or 2 How often do you have six or more drinks on one occasion: Never AUDIT-C Alcohol total score: 1 Non-prescribed substance use: denies use How often does anyone, including family, friends and others, physically hurt you : never How often does anyone, including family, friends and others, insult or talk down to you: never How often does anyone, including family, friends and others, threaten you with harm: never How often does anyone, including family, friends and others, scream or curse at you: never Little interest or pleasure in doing things: not at all Feeling down, depressed, or hopeless: not at all service: No Exam Const: Vital Signs, click to edit/add: Vital Signs - 24 hr 12/10/23 08:27 12/10/23 09:13 12/10/23 09:22 Temperature 98.3 F Pulse Rate 74 Pulse Rate [Pulse Oximeter] 71 Blood Pressure Blood Pressure [Ri ght Upper Arm] 132/83 Pulse Oximetry 97 97 96 Oxygen Delivery Me thod Room Air 12/10/23 09:49 12/10/23 09:50 12/10/23 09:51 Temperature Pulse Rate 62 79 69 Pulse Rate [Pulse Oximeter] Blood Pressure 126/75 Blood Pressure [Ri ght Upper Arm] Pulse Oximetry 99 100 100 Oxygen Delivery Me thod 12/10/23 10:00 12/10/23 10:01 12/10/23 10:15 Temperature Pulse Rate 62 60 62 Pulse Rate [Pulse Oximeter] Blood Pressure 107/67 Blood Pressure [Ri ght Upper Arm] Pulse Oximetry 98 97 97 Oxygen Delivery Me thod 12/10/23 10:30 12/10/23 10:31 12/10/23 10:45 Temperature Pulse Rate 59 L 55 L 66 Pulse Rate [Pulse Oximeter] Blood Pressure 108/76 Blood Pressure [Ri ght Upper Arm] Pulse Oximetry 97 97 97 Oxygen Delivery Me thod Patient is a 33-year-old female that is alert, interactive, no apparent distress. She does have a dry sound in cough that is recurrent during the interaction. She is able to speak in complete sentences, voice is normal, no hoarseness. Pupils equal round reactive to light, sclera clear. TMs and canals normal. Face is symmetric. Oropharynx normal mucosa, no exudates or erythema, posterior pharynx normal. Neck is supple, no adenopathy. Lungs actually are clear, good air entry, no wheezing or crackles, deep breathing does induce this dry harsh sounding cough. CV regular rate and rhythm, no murmur, normal S1-S2, no S3-S4. Patient has no lower extremity edema, was ambulatory into the ED of her own accord. Documenting provider has reviewed patient's vital signs: yes Course Course ED Course: Reviewed with patient and her the potential etiologies. This certainly could be pleurisy but pleurisy can be a symptom of many underlying issues. One concern with the travel, the respiratory likely virus that she started with which could have been COVID is potential for pulmonary emboli. We discussed this, did discuss imaging. With joint decision making, was decided to proceed with chest CT PE protocol to rule this out. She will be monitored on cardiac monitoring and pulse oximetry. She is not hypoxic. She certainly could have underlying pneumonia which will definitely be delineated on a chest CT. We did review that chest x-rays can miss this on imaging. Thus, will get labs, monitor her and obtain chest CT. Reevaluation(s) Time of Reevaluation #1: 11:11 Vital Signs Vital signs: Initial Vital Signs Temperature 98.3 F 12/10/23 08:27 Temperature Source Temporal Artery Scan 12/10/23 08:27 Pulse Rate 71 12/10/23 08:27 Pulse Rhythm Regular 12/10/23 08:27 Blood Pressure 132/83 12/10/23 08:27 Blood Pressure Mean 99 12/10/23 08:27 Blood Pressure Position Supine 12/10/23 08:27 Pulse Oximetry 97 12/10/23 08:27 Oxygen Delivery Method Room Air 12/10/23 08:27 Vital Signs Temperature 98.3 F 12/10/23 08:27 Pulse Rate 71 12/10/23 08:27 Blood Pressure 132/83 12/10/23 08:27 Pulse Oximetry 97 12/10/23 08:27 Oxygen Delivery Method Room Air 12/10/23 08:27 Temperature 98.3 F 12/10/23 08:27 Pulse Rate 66 12/10/23 10:45 Blood Pressure 108/76 12/10/23 10:31 Pulse Oximetry 97 12/10/23 10:45 Oxygen Delivery Method Room Air 12/10/23 08:27 Medical Decision Making Lab Data Labs: Lab Results 12/10/23 Range/Units 08:53 WBC 4.47 L (4.50-11.00) K/uL RBC 4.27 (4.00-5.20) m/uL Hgb 13.2 (12.0-16.0) gm/dL Hct 39.5 (33.0-51.0) % MCV 93 (80-100) fL MCH 31 (26-34) pg MCHC 33 (32-36) gm/dL RDW Coeff of Ismael 12.1 (11.5-15.5) % Plt Count 236 (140-440) K/uL Neut % (Auto) 57.8 (42.0-72.0) % Lymph % (Auto) 30.2 (20-44) % Morrill % (Auto) 8.7 (0.0-11.0) % Eos % (Auto) 2.9 (0.0-7.0) % Baso % (Auto) 0.4 (0.0-3.0) % Neut # (Auto) 2.60 (1.7-7.0) K/uL Lymph # (Auto) 1.30 (0.90-2.90) K/uL Morrill # (Auto) 0.40 (0.00-0.90) K/UL Eos # (Auto) 0.10 (0.00-0.50) K/uL Baso # (Auto) 0.00 (0.00-0.30) K/uL Abs Immat Gran (auto) 0.00 (0.00-0.30) K/uL Imm/Tot Granulo (auto) 0.0 % Sodium 140 (135-149) mmol/L Potassium 4.1 (3.6-5.1) mmol/L Chloride 106 (96-114) mmol/L Carbon Dioxide 23 (20-32) mmol/L Anion Gap 11 (7-15) mEq/L BUN 18 (5-24) mg/dL Creatinine 0.7 (0.5-1.5) mg/dL Estimated Creat Clear 96.33 Estimated GFR 119 ml/min Glucose 107 (60-115) mg/dL Lactate 1.1 (0.5-1.9) mmol/L Calcium 9.7 (8.4-10.6) mg/dL NT-Pro-B Natriuret Pep < 20 pg/mL POC Troponin I 0.00 L (0.01-0.04) ng/ml Imaging Data CT scan - chest: Attestation: I have reviewed the pertinent imaging results. Radiologist's impression: Patient: LEONOR CHERRY Facility:?[facility] Patient ID:?[id number] Site Patient ID:?[id number]. Site :?1990 Study:?CT Chest PE 95CC ISOVUE 370-12/10/2023 9:51:54 AM Ordering Physician:JEFF Final Report: INDICATION: COUGH, LT CP, PLEURITIC TECHNIQUE: CT chest PE was acquired with 95 cc Isovue 370 IV contrast. COMPARISON: None. FINDINGS: Heart and vasculature: Contrast opacification of the pulmonary arterial tree is adequate. No sign of pulmonary embolism. Heart size is normal. No evidence of pericardial effusion. Thoracic aorta and pulmonary artery are normal in caliber. Lungs and pleural: No suspicious nodules or infiltrates. No pleural effusions, pleural thickening, or pneumothorax. Lymph nodes/mediastinum: No mediastinal, hilar, or axillary adenopathy. Chest wall: No masses. Upper abdomen: No acute or significant findings. Bones: Unremarkable for age. IMPRESSION: No evidence of acute cardiopulmonary process. Specifically, no evidence of pulmonary embolus. Please note that all CT scans at this facility use dose modulation, iterative reconstruction, and/or weight-based dosing when appropriate to reduce radiation dose to as low as reasonably achievable. Dictated by Matt Limon MD @ 12/10/2023 10:08:56 AM (Electronic Signature) ECG Data Attestation: I personally reviewed and interpreted this ECG as follows: (Sinus rhythm, 66 beats per minute. QT corrected 406 milliseconds. No ischemic change noted) Prior ECG tracings: not available for review Discharge Plan Discharge Clinical Impression: Post-viral cough syndrome, Acute pleurisy without pleural effusion Patient Disposition: Home, Self-Care Condition: Stable Instructions: Pleurisy (ED), Acute Cough (ED) Additional Instructions: Complete the Z-Sahil that you of started. Will add in prednisone 20 mg twice a day, take with food. Prednisone is an anti-inflammatory and hopefully will help diminish the cough. For pleurisy, ibuprofen and Tylenol per bottle directions. Have written for tramadol to be used at bedtime to help with sleep for more pain control at night. Tramadol is narcotic, should not drive or operate machinery within 8 hours of taking this medicine. If you are not improving over the next week, having more severe pain or worsening, do recommend re-evaluation. Activity Level: Activity as Tolerated Discharge Diet: Regular Prescriptions: New prednisone 20 mg tablet 20 mg PO BID Qty: 10 0RF tramadol 50 mg tablet 50 mg PO QHS PRN (Reason: pain) Qty: 7 0RF No Action azithromycin 250 mg tablet See Rx Instructions PO .COMPLEX Qty: 6 0RF Rx Instructions: For 250 mg dose pack: take 500 mg today (day 1), then 250 mg for 4 days (days 2-5) PO prenat.vits,david,bdh-yfqa-moiht 1 tab PO DAILY Follow Up/Referrals: Provider,Not a Local [Primary Care Provider] - Stand Alone Forms: MyHealth Info Instructions
--- NOTE | 2023-12-10 09:13 | CT_ITS ---
Final Report Patient: LEONOR CHERRY Facility:?[facility] Patient ID:?[id number] Site Patient ID:?[id number]. Site :?1990 Study:?CT Chest PE 95CC ISOVUE 370-12/10/2023 9:51:54 AM Ordering Physician:JEFF Final Report: INDICATION: COUGH, LT CP, PLEURITIC TECHNIQUE: CT chest PE was acquired with 95 cc Isovue 370 IV contrast. COMPARISON: None. FINDINGS: Heart and vasculature: Contrast opacification of the pulmonary arterial tree is adequate. No sign of pulmonary embolism. Heart size is normal. No evidence of pericardial effusion. Thoracic aorta and pulmonary artery are normal in caliber. Lungs and pleural: No suspicious nodules or infiltrates. No pleural effusions, pleural thickening, or pneumothorax. Lymph nodes/mediastinum: No mediastinal, hilar, or axillary adenopathy. Chest wall: No masses. Upper abdomen: No acute or significant findings. Bones: Unremarkable for age. IMPRESSION: No evidence of acute cardiopulmonary process. Specifically, no evidence of pulmonary embolus. Please note that all CT scans at this facility use dose modulation, iterative reconstruction, and/or weight-based dosing when appropriate to reduce radiation dose to as low as reasonably achievable. Dictated by Matt Limon MD @ 12/10/2023 10:08:56 AM (Electronic Signature)
[2023-12-10 09:19] LABS: Lactate* 1.1 mmol/L (0.5-1.9)
[2023-12-10 09:36] LABS: Chloride* 106 mmol/L (96-114)
[2023-12-10 09:37] LABS: Potassium* 4.1 mmol/L (3.6-5.1); Sodium* 140 mmol/L (135-149)
[2023-12-10 09:39] LABS: Creatinine* 0.7 mg/dL (0.5-1.5); Est. Creatinine Clearance* 96.33; Estimated Glomerular Filt Rate 119 ml/min
[2023-12-10 09:40] LABS: Anion Gap 11 mEq/L (7-15); Blood Urea Nitrogen* 18 mg/dL (5-24); Calcium* 9.7 mg/dL (8.4-10.6); Carbon Dioxide* 23 mmol/L (20-32); Glucose* 107 mg/dL (60-115)
[2023-12-10 09:52] LABS: NT Pro B Type NatriureticPept* < 20 pg/mL
[2023-12-10 10:36] LABS: Basophils Percent Auto 0.4 % (0.0-3.0); Eosinophils Percent Auto 2.9 % (0.0-7.0); Hematocrit 39.5 % (33.0-51.0); Hemoglobin* 13.2 gm/dL (12.0-16.0); Lymphocytes Percent Auto 30.2 % (20-44); Mean Corpuscular HGB Conc 33 gm/dL (32-36); Mean Corpuscular Hemoglobin 31 pg (26-34); Mean Corpuscular Volume 93 fL (80-100); Monocytes Percent Auto 8.7 % (0.0-11.0); Neutrophils Percent Auto 57.8 % (42.0-72.0); Platelet Count* 236 K/uL (140-440); RDW Coefficient of Variation % 12.1 % (11.5-15.5); Red Blood Count 4.27 m/uL (4.00-5.20); White Blood Count* 4.47 K/uL (4.50-11.00)
[2023-12-10 10:45] LABS: Slide Review Reflex No
== END 2023-12-10 11:30 | disposition home or self-care (01) ==
PROVIDERS: Emergency Provider Family Medicine
DX: R05.3 Chronic cough (principal); R09.1 Pleurisy
CPT/HCPCS: 36415; 71275; 80048; 83605; 83880; 84484; 85025; 94761; 99284; Q9967

== ENCOUNTER 2024-02-13 07:58 | Outpatient (CLI) | payer OTHER, SELFPAY ==
--- NOTE | 2024-02-13 08:15 | US_ITS ---
Patient: LEONOR CHERRY Facility:?[facility] Patient ID:?[id number] Site Patient ID:?[id number]. Site :?1990 Study:?US-OB Pelvis dating-02/13/2024 8:41:33 AM Ordering Physician:?Ayanna Mrecer Final Report: INDICATION: Check viability and dates TECHNIQUE: Transvaginal scanning was performed to optimally evaluate the IUP and adnexa. Ovarian blood flow was evaluated with color-flow doppler. COMPARISON: None FINDINGS: There is a living IUP with gestational age of 8 weeks 2 days by LMP and today`s crown-rump length. EDC is 09/22/2024. The embryonic heart rate is measured at 161 beats per minute. The placenta is not yet formed. No subchorionic hemorrhage is evident. A 1.9 cm left ovarian corpus luteum cyst is noted. The right ovary measures 3.0 x 1.8 x 1.1 cm and the left 3.3 x 2.1 x 1.8 cm. Ovarian blood flow is demonstrated with color-flow doppler. No adnexal mass is evident. A small amount of physiologic free fluid is noted. IMPRESSION: 1. Living IUP with gestational age of 8 weeks 2 days by LMP and today`s crown- rump length. EDC is 09/22/2024. 2. No complication evident. Dictated by Karl Bermudez MD @ 02/13/2024 2:41:50 PM Signed by:?Karl Bermudez MD @02/13/2024 2:41:50 PM (Electronic Signature)
== END 2024-02-13 07:59 | disposition home or self-care (01) ==
LOC: US 07:58
PROVIDERS: Visit Provider Registered Nurse
DX: Z34.91 Encounter for supervision of normal pregnancy, unspecified, first trimester (principal); Z3A.08 8 weeks gestation of pregnancy
CPT/HCPCS: 76817; 86592; 86703; 86704; 86706; 86762; 86787; 86803; 86850; 86870; 86900; 86901; 87086; 87340; 87491; 87591; J2791

== ENCOUNTER 2024-02-13 09:47 | Outpatient (CLI) | payer OTHER, SELFPAY ==
--- OUTSIDE RECORDS SUMMARY | 2024-02-13 09:51 | XMS_ITS | Clinical Summary ---
Author Name Unknown Organization [facility] Address [place], [place] [address] Care Team Providers Care Catering Sales Manager Name Role Phone Pcp, No Primary Care Provider Unavailabl e Allergies No known active allergies Medications Medication Sig Dispensed Refills Start Date End Date Status levonorgestrel intrauterine device (MIRENA) 20 mcg/24 hours (5 yrs) 52 mg IUD Inject 1 Each intrauterine. 03/09/2019 03/07/2024 Active Active Problems No known active problems Social History Tobacco Use Types Packs/Day Years Used Date Smoking Tobacco: Never Smokeless Tobacco: Never Alcohol Use Standard Drinks/Week Comments Yes 0 (1 standard drink = 0.6 oz pur e alcohol) Sex and Gender Information Value Date Recorded Sex Assigned at Not on file Gender Identity Not on file Sexual Orientation Not on file Obstetrics History Last Filed Vital Signs Vital Sign Reading Time Taken Comments Blood Pressure 142/84 03/15/2020 2:06 PM CDT Pulse 82 03/15/2020 2:06 PM CDT Temperature 36.3 ??C (97.4 ??F) 03/15/2020 2:06 PM CD T Respiratory Rate 18 03/15/2020 2:06 PM CDT Oxygen Saturation 98% 03/15/2020 2:06 PM CDT Inhaled Oxygen Concentration - - Weight 60.8 kg (134 lb) 03/15/2020 2:06 PM CDT Height - - Body Mass Index - - Plan of Treatment Health Maintenance Due Date Last Done Comments Tdap 01/04/2003 Depression screening for age 12+ 2004 HIV for age 15-65 01/04/2007 BMI (ht and wt on same day) for age 18+ 01/04/2010 Hepatitis C screening for ag e 18-79 01/04/2010 Tetanus booster 2012 COVID-19 vaccine series ( season) 2023 Influenza for age 9-49 06/20/2024 Pap test for age 21-65 08/30/2024 08/30/2021 Pneumococcal series for age 6-64 Aged Out No longer eligible based on patient's age to complete this topic Procedures Procedure Name Priority Date/Time Associated Diagnosis Comments ELEMENT SETTER THIN PREP PAP SCREEN IMAGED Routine 08/30/2021 9:30 AM MACHINE STEMMER from Last 3 Months or Most Recently Relevant to Health Maintenance Results * ELEMENT SETTER THIN PREP PAP SCREEN IMAGED (08/30/2021 9:30 AM MACHINE STEMMER) Case Report Gynecologic Cytology Report ? Case: [id number] ? Authorizing Provider: ??Amy Richards PA-C ?Collected: ? 08/30/2021 0930 ? Ordering Location: ? [facility] ?Received: ?08/30/2021 1753 ? First Screen: ?Donnell Fowler ? Specimen: ?ELEMENT SETTER ThinPrep Vial Screening, Cervical ? 09/18/2021 8:37 AM MACHINE STEMMER [facility] INTERPRETATION/ RESULT NEGATIVE FOR INTRAEPITHELIAL LESION OR MALIGNANCY (NIL) (none) 09/18/2021 8:37 AM [facility] IMEN ADEQUACY Satisfactory for evaluation No endocervical component seen 09/18/2021 8:37 AM [facility] HPV REQUEST HPV if ASCUS 09/18/2021 8:37 AM [facility] Additional Information 09/18/2021 8:37 AM [facility] Comment: Interpreted at [facility] - [address] [place] [address] [place] [address] Automated Review Successful 09/18/2021 8:37 AM [facility] Comment:Specimen processed s uccessfully by automated bindery cutter operator device, ThinPrep Imaging System, [employer] Note The pap test is a screening technique, not a diagnostic procedure. It is used primarily to screen for squamous cancers and precursor lesions. Published studies have shown that it is subject to both false negative and false positive results. The pap test should not be used as the sole means to diagnose or exclude pre-malignant and malignant lesions. 09/18/2021 8:37 AM [facility] Other (Cervical) 08/30/2021 9:30 AM MACHINE STEMMER 08/30/2021 5:53 PM MACHINE STEMMER Amy Maurice [facility] [address] [place] [address], [place] from Last 3 Months or Most Recently Relevant to Health Maintenance Care Teams Catering Sales Manager Relationship Specialty Start Date End Date Pcp, No . PCP - General 09/24/18
--- OUTSIDE RECORDS SUMMARY | 2024-02-13 09:52 | XMS_ITS | Clinical Summary ---
Author Name Unknown Organization [facility] Address [address] [place] [address] Care Team Providers Care Hairspring Studder Name Role Phone Burt Lizsarahy Garvey APRN, CN Primary Care Provider [phone] Source Comments You are receiving this document as you are listed as the primary care provider,follow-up provider, or the patient has been referred to you for consultation.This is in compliance with the Medicare and[facility] EHR Incentive Program,which states Providers who transition their patient to another setting of careor provider of care or refers their patient to another provider of care shouldprovide summary care record for each transition of care or referral. [facility] Allergies No known active allergies Medications Medication Sig Dispensed Refills Start Date End Date Status levonorgestrel (MIRENA) 20 MCG/24HR IUDIndications:Encou nter for insertion of intrauterine contraceptive device 1 Each by Intrauterine route continuous. 03/09/2019 03/07/2024 Active Active Problems No known active problems Immunizations Name Administration Dates Next Due Rho(D) - IG, IM 11/17/2020 Tdap 06/15/2013 Social History Tobacco Use Types Packs/Day Years Used Date Smoking Tobacco: Never Smokeless Tobacco: Never Alcohol Use Standard Drinks/Week Comments Yes 8 (1 standard drink = 0.6 oz pur e alcohol) Sex and Gender Information Value Date Recorded Sex Assigned at Not on file Gender Identity Not on file Sexual Orientation Not on file Last Filed Vital Signs Vital Sign Reading Time Taken Comments Blood Pressure 111/76 11/16/2020 10:32 AM DOWEL SANDER OPERATOR Pulse 70 11/16/2020 10:32 AM DOWEL SANDER OPERATOR Temperature 37.2 ??C (99 ??F) 08/18/2014 10:40 AM CDT Respiratory Rate - - Oxygen Saturation - - Inhaled Oxygen Concentration - - Weight 63 kg (139 lb) 11/16/2020 10:32 AM DOWEL SANDER OPERATOR Height 160 cm (5' 3) 11/16/2020 10:32 AM DOWEL SANDER OPERATOR Body Mass Index 24.62 11/16/2020 10:32 AM DOWEL SANDER OPERATOR Plan of Treatment Health Maintenance Due Date Last Done Comments Hep C Screening (Preventive Services) 1992 HIV Screening (Preventive Services) 2008 HepB (1) 01/04/2011 Adult Preventive Visit 07/30/2018 07/30/2016 Cervical Cancer Screening 07/30/20192015, 07/30/2016 (Completed) DTaP/Tdap/Td (2 - Tdap) 06/15/2023 06/15/2013 COVID-19 Vaccine (1 - 2022-2 4 season) 2023 Influenza (#1) 2023 Zoster/Shingles (1 of 2) 01/04/2042 HPV Vaccine Aged Out No longer eligi ble based on patient's age to complete this topic HepA Aged Out No longer eligi ble based on patient's age to complete this topic Hib Aged Out No longer eligi ble based on patient's age to complete this topic IPV (Polio) Aged Out No longer eligi ble based on patient's age to complete this topic MCV4 Aged Out No longer eligi ble based on patient's age to complete this topic Pneumococcal Aged Out No longer eligi ble based on patient's age to complete this topic Procedures Procedure Name Priority Date/Time Associated Diagnosis Comments ANATOMICAL PATH LIQUID BASED Routine 07/30/2016 1:23 PM CDT from Last 3 Months or Most Recently Relevant to Health Maintenance Results * Pap Smear (07/30/2016 1:23 PM CDT) 07/30/2016 1:23 PM CDT Narrative PN SOFT - 08/01/2016 11:19 AM CDT FINAL GYNECOLOGICAL CYTOLOGY REPORT Pathology #: [id number] ?Date Obtained: 07/30/2016 ? Date Received: 07/31/2016 INTERPRETATION/RESULTS: Negative for Intraepithelial Lesion or Malignancy. SPECIMEN ADEQUACY: Satisfactory for Evaluation. ??Endocervical cells/transformation zone component present. Verified on 08/01/2016 ??by ALKA GOMEZ(ASCP) (electronic signature) CLINICAL NOTES: ?Abnormal bleeding: No, LMP: [id number], Menstrual status: None Apply, ?Current form of therapy: None apply LIQUID BASED PAP SMEAR SPECIMEN TYPE: ?ROUTINE CERVICAL PAP TEST PLEASE NOTE: The pap smear is a screening test designed to aid in the detection of cervical cancer and its precursor lesions. It is not a diagnostic procedure and should not be used as the sole means of detecting cervical cancer. Both false-positive and false-negative reports may occur. Performed at [facility], [address] [place] [id number] Edson Stover PA-C LAB_1 SOFT [facility] [place] [address] from Last 3 Months or Most Recently Relevant to Health Maintenance Care Teams Hairspring Studder Relationship Specialty Start Date End Date Liz [place], CIVIL LITIGATION ATTORNEY, CNM [address] [place] [address] PCP - General Certified Nurse Utility Worker Film Processing 11/22/20
--- OUTSIDE RECORDS SUMMARY | 2024-02-13 09:52 | XMS_ITS | Referral Summary ---
Author Name Unknown Organization [place] Address [address] [place] [address]. [place] [address] Care Team Providers Care Lining Finisher Name Role Phone [facility] Primary Care Provider Allergies No known active allergies Medications Medication Sig Dispensed Refills Start Date End Date Status NO ACTIVE MEDICATIONS Act crescencio Social History Tobacco Use Types Packs/Day Years Used Date Smoking Tobacco: Former Smokeless Tobacco: Never Adolescent Education Answer Date Record ed Getting School Help Needed Not on file 07/20 Sex and Gender Information Value Date Recorded Sex Assigned at Not on file Gender Identity Not on file Sexual Orientation Not on file Last Filed Vital Signs Vital Sign Reading Time Taken Comments Blood Pressure 110/70 11/20/2020 3:27 PM NURSING ASSOCIATE Pulse 64 11/20/2020 3:27 PM NURSING ASSOCIATE regul ar Temperature 36.4 ??C (97.5 ??F) 02/27/2013 7:21 PM CD T Respiratory Rate 14 02/27/2013 7:21 PM CDT Oxygen Saturation 99% 02/27/2013 8:30 PM CDT Inhaled Oxygen Concentration - - Weight 62.6 kg (138 lb) 11/20/2020 3:27 PM NURSING ASSOCIATE Height 160 cm (5' 3) 11/20/2020 3:27 PM NURSING ASSOCIATE Body Mass Index 24.45 11/20/2020 3:27 PM NURSING ASSOCIATE Plan of Treatment Not on file Care Teams Lining Finisher Relationship Specialty Start Date End Date Gonsalo, [facility] [address] [place] [address] PCP - General 02/27/13
--- OUTSIDE RECORDS SUMMARY | 2024-02-13 09:52 | XMS_ITS | Clinical Summary ---
Author Name Unknown Organization [place] Address [address] [place] [address]. [place] [address] Care Team Providers Care Tankage Supervisor Name Role Phone [facility] [...] Comments Blood Pressure 110/70 11/20/2020 3:27 PM TRADING ANALYST Pulse 64 11/20/2020 3:27 PM TRADING ANALYST regul ar Temperature 36.4 ??C (97.5 ??F) 02/27/2013 7:21 PM CD T Respiratory Rate 14 02/27/2013 7:21 PM CDT Oxygen Saturation 99% 02/27/2013 8:30 PM CDT Inhaled Oxygen Concentration - - Weight 62.6 kg (138 lb) 11/20/2020 3:27 PM TRADING ANALYST Height 160 cm (5' 3) 11/20/2020 3:27 PM TRADING ANALYST Body Mass Index 24.45 11/20/2020 3:27 PM TRADING ANALYST Plan of Treatment Not on file Care Teams Tankage Supervisor Relationship Specialty Start Date End Date Gonsalo, [facility] [address] [place] [address] PCP - General 02/27/13
[2024-02-13 18:54] LABS: Chlamydia DNA Amplified* NOT DETECTED (No Detected); GC DNA Amplified* NOT DETECTED (No Detected)
== END 2024-02-13 09:48 | disposition home or self-care (01) ==
PROVIDERS: Visit Provider Registered Nurse
DX: Z34.81 Encounter for supervision of other normal pregnancy, first trimester (principal); Z67.11 Type A blood, Rh negative
CPT/HCPCS: 86592; 86703; 86704; 86706; 86762; 86787; 86803; 86850; 86870; 86880; 86900; 86901; 87086; 87340; 87491; 87591; J2791

== ENCOUNTER 2024-05-14 12:47 | Outpatient (CLI) | payer OTHER, SELFPAY ==
--- OUTSIDE RECORDS SUMMARY | 2024-05-14 12:49 | XMS_ITS | Continuity of Care Document ---
Author Organization [facility] Address [address] [address] [place] [address] Phone Care Team Providers Care Casting Finisher Name Role Phone Stevenson Cummings MD Unavailable Unavailable Allergies, Adverse Reactions, Alerts Substance Reaction Status Criticality No Known Allergies Active No Inform ation Procedures Procedure Date New Level 3 Advance Directives Directive Yes / No Effective Date File Name No Information Encounters Encounter Description Practice Location Reason(s) For Visit Diagnoses Date Provider Providers Copied on Encounter [facility], [address] [address], [place], [place], [id number], tel:[phone] [facility] No Information Emiliano Gamino. [address] [place] [address], [place] [address], [place], [place], [id number], [place]. tel:[phone] New Level 3 [facility], [address] [address], [place], [place], [id number], tel:[phone] [facility] Comment (chief complaint) RUQ pain Emiliano Gamino. [address] [place] [address], [facility] [address], [place], [place], [id number], [place]. tel:[phone] Referring Provider: Dina Hernandes, [address], [place], [address]. tel:[phone] Family History Family Member Type Diagnosis Age At Onset Mother Problem (finding) Thyroid disorder Payers Payer name Insurance type Covered constitution party ID Authorcyrila mera(s) [id number] Social History Type Description Quantity Date Captured Comments Alcohol Use Details Unknown Caffeine Use Details Unknown Tobacco Use Status No Information Smoking Status No Information Sex Female Chief Complaint And Reason For Visit No Information Reason For Referral Reason For Referral No Information History Of Present Illness Encounter Date Complaint History Of e nt Illness Comment Yuliet martini is a very pleasant 31-year-old female who was referred by Dina Barraza for consultation regarding the patient's right upper quadrant pain. The patient 1st noted her problems after a right ectopic and right salpingectomy on November 23 of this year. Shortly before an emergency room visit on December 25, she developed some right upper quadrant discomfort that she describes as severe and unrelenting. At that time, it was worst postprandially, but was generally present all the time. She went to ED on 12/25/2020 and was diagnosed with a right-sided chest wall pain. LFTs at that time were reportedly negative and right upper quadrant ultrasound subsequently ordered is reported by the patient is negative for gallstones (she has a clear memory of that finding). Again, initially this discomfort was largely postprandial and she felt that there was a bloating component to it as well as a sharper pain component. She states she tried a variety of dietary man Functional Status Date Functional Assessmen t No Information Instructions Date Instruction Additional Infor mation No Information Assessments Type Assessment Date No Information Patient Care Teams Name Effective Dates (start - stop) Status Members No Information
--- OUTSIDE RECORDS SUMMARY | 2024-05-14 12:49 | XMS_ITS | Clinical Summary ---
Author Organization [facility] Address [place], [place] [address] Care Team Providers Care On Call Name Role Phone Pcp, No Primary Care Provider Unavailabl e Allergies No known active allergies Medications No known medications Active Problems No known active problems Social [...] 01/04/2010 Tetanus booster 2012 COVID-19 vaccine series (2022- season) 2023 Influenza for age 9-49 06/20/2024 Pap test for age 21-65 08/30/2024 08/30/2021 Pneumococcal series for age 6-64 Aged Out No longer eligible based on patient's age to complete this topic Procedures Procedure Name Priority Date/Time Associated Diagnosis Comments DEPUTY JAILER THIN PREP PAP SCREEN IMAGED Routine 08/30/2021 9:30 AM COUNTERINTELLIGENCE/HUMINT SPECIALIST from Last 3 Months or Most Recently Relevant to Health Maintenance Results * DEPUTY JAILER THIN PREP PAP SCREEN IMAGED (08/30/2021 9:30 AM COUNTERINTELLIGENCE/HUMINT SPECIALIST) Case Report Gynecologic Cytology Report ? Case: [id number] ? Authorizing Provider: ??Amy Richards PA-C ?Collected: ? 08/30/2021 0930 ? Ordering Location: ? [facility] ?Received: ?08/30/2021 1753 ? First Screen: ?Donnell Fowler ? Specimen: ?DEPUTY JAILER ThinPrep Vial Screening, Cervical ? 09/18/2021 8:37 AM COUNTERINTELLIGENCE/HUMINT SPECIALIST [employer] LABORATORY-C ENTRAL LABORATORY INTERPRETATION/ RESULT NEGATIVE FOR INTRAEPITHELIAL LESION OR MALIGNANCY (NIL) (none) 09/18/2021 8:37 AM COUNTERINTELLIGENCE/HUMINT SPECIALIST [facility] LABORATORY-C ENTRAL LABORATORY IMEN ADEQUACY Satisfactory for evaluation No endocervical component seen 09/18/2021 8:37 AM COUNTERINTELLIGENCE/HUMINT SPECIALIST [facility] HPV REQUEST HPV if ASCUS 09/18/2021 8:37 AM COUNTERINTELLIGENCE/HUMINT SPECIALIST [facility] Additional Information 09/18/2021 8:37 AM COUNTERINTELLIGENCE/HUMINT SPECIALIST [facility] Comment: Interpreted at [facility] - [address], [place] [address] Automated Review Successful 09/18/2021 8:37 AM COUNTERINTELLIGENCE/HUMINT SPECIALIST [facility] Comment:Specimen processed s uccessfully by automated wharf laborer device, ThinPrep Imaging System, [employer] Note The pap test is a screening technique, not a diagnostic procedure. It is used primarily to screen for squamous cancers and precursor lesions. Published studies have shown that it is subject to both false negative and false positive results. The pap test should not be used as the sole means to diagnose or exclude pre-malignant and malignant lesions. 09/18/2021 8:37 AM COUNTERINTELLIGENCE/HUMINT SPECIALIST [facility] Other (Cervical) 08/30/2021 9:30 AM COUNTERINTELLIGENCE/HUMINT SPECIALIST 08/30/2021 5:53 PM COUNTERINTELLIGENCE/HUMINT SPECIALIST January [facility] [address] [place] [address], from Last 3 Months or Most Recently Relevant to Health Maintenance Care Teams On Call Relationship Specialty Start Date End Date Pcp, No . PCP - General 09/24/18
--- OUTSIDE RECORDS SUMMARY | 2024-05-14 12:49 | XMS_ITS | Clinical Summary ---
Author Organization [facility] Address [address], [place] [address] Care Team Providers Care Boat Worker Name Role Phone Burt Lizsarahy Garvey APRN, [facility] Primary Care Provider [phone] Source Comments You are receiving this document as you are listed as the primary care provider,follow-up provider, or the patient has been referred to you for consultation.This is in compliance with the Medicare and[facility] EHR Incentive Program,which states Providers who transition their patient to another setting of careor provider of care or refers their patient to another provider of care shouldprovide summary care record for each transition of care or referral. [facility] Allerg[facility] No known active allergies Medications Medication Sig Dispensed Refills Start Date End Date Status levonorgestrel (MIRENA) 20 MCG/24HR IUDIndications:Encoun ter for insertion of intrauterine contraceptive device 1 Each by Intrauterine route continuous. 03/09/2019 Active Active Problems No known active problems [...] Comments Blood Pressure 111/76 11/16/2020 10:32 AM CABIN WORKER Pulse 70 11/16/2020 10:32 AM CABIN WORKER Temperature 37.2 ??C (99 ??F) 08/18/2014 10:40 AM CDT Respiratory Rate - - Oxygen Saturation - - Inhaled Oxygen Concentration - - Weight 63 kg (139 lb) 11/16/2020 10:32 AM CABIN WORKER Height 160 cm (5' 3) 11/16/2020 10:32 AM CABIN WORKER Body Mass Index 24.62 11/16/2020 10:32 AM CABIN WORKER Plan of Treatment Health Maintenance Due Date Last Done Comments Hep C Screening (Preventive Services) 1992 HIV Screening (Preventive Services) 2008 HepB (1) 01/04/2011 Adult Preventive Visit 07/30/2018 07/30/2016 Cervical Cancer Screening 07/30/20192015, 07/30/2016 (Completed) DTaP/Tdap/Td (2 - Tdap) 06/15/2023 06/15/2013 COVID-19 Vaccine ( - 2022-2 4 season) 2023 Influenza (#1) 2024 Zoster/Shingles (1 of 2) 01/04/2042 HPV Vaccine [...] CDT FINAL GYNECOLOGICAL CYTOLOGY REPORT Pathology #: [id number] ?Date Obtained: 07/30/2016 ? Date Received: 07/31/2016 INTERPRETATION/RESULTS: Negative for Intraepithelial Lesion or Malignancy. SPECIMEN ADEQUACY: Satisfactory for Evaluation. ??Endocervical cells/transformation zone component present. Verified on 08/01/2016 ??by ALKA GOMEZ(ASCP) (electronic signature) CLINICAL NOTES: ?Abnormal bleeding: No, LMP: [id number], Menstrual status: None Apply, ?Current form of [...] and false-negative reports may occur. Performed at [address] [address] dEson Stover PA-C LAB_[address] [place] [id number] from Last 3 Months or Most Recently Relevant to Health Maintenance Care Teams Boat Worker Relationship Specialty Start Date End Date Liz [place], BATTERY TESTER [employer], CNM [address] [place] [address] PCP - General Certified Nurse Patching Machine Operator 11/22/20
--- OUTSIDE RECORDS SUMMARY | 2024-05-14 12:49 | XMS_ITS | Referral Summary ---
Author Organization [place] Address [facility] [place] [address] Care Team Providers Care Bakery Team Leader Name Role Phone [facility] [...] Comments Blood Pressure 110/70 11/20/2020 3:27 PM MUCK MINER Pulse 64 11/20/2020 3:27 PM MUCK MINER regul ar Temperature 36.4 ??C (97.5 ??F) 02/27/2013 7:21 PM CD T Respiratory Rate 14 02/27/2013 7:21 PM CDT Oxygen Saturation 99% 02/27/2013 8:30 PM CDT Inhaled Oxygen Concentration - - Weight 62.6 kg (138 lb) 11/20/2020 3:27 PM MUCK MINER Height 160 cm (5' 3) 11/20/2020 3:27 PM MUCK MINER Body Mass Index 24.45 11/20/2020 3:27 PM MUCK MINER Plan of Treatment Not on file Care Teams Bakery Team Leader Relationship Specialty Start Date End Date Gonsalo [facility] PCP - General 02/27/13
--- OUTSIDE RECORDS SUMMARY | 2024-05-14 12:49 | XMS_ITS | Clinical Summary ---
Author Organization [place] Address [address] [place] [address]. [place] [address] Care Team Providers Care Environmental Engineering Manager Name Role Phone [facility] [...] Comments Blood Pressure 110/70 11/20/2020 3:27 PM LOOM OPERATOR APPRENTICE Pulse 64 11/20/2020 3:27 PM LOOM OPERATOR APPRENTICE regul ar Temperature 36.4 ??C (97.5 ??F) 02/27/2013 7:21 PM CD T Respiratory Rate 14 02/27/2013 7:21 PM CDT Oxygen Saturation 99% 02/27/2013 8:30 PM CDT Inhaled Oxygen Concentration - - Weight 62.6 kg (138 lb) 11/20/2020 3:27 PM LOOM OPERATOR APPRENTICE Height 160 cm (5' 3) 11/20/2020 3:27 PM LOOM OPERATOR APPRENTICE Body Mass Index 24.45 11/20/2020 3:27 PM LOOM OPERATOR APPRENTICE Plan of Treatment Not on file Care Teams Environmental Engineering Manager Relationship Specialty Start Date End Date Gonsalo [facility] PCP - General 02/27/13
--- NOTE | 2024-05-14 13:00 | CRLHL7_ITS ---
For Patients: As a result of the Century Cures Act, medical imaging exams and procedure reports are released immediately into your electronic medical record. You may view this report before your referring provider. If you have questions, please contact your health care provider. INDICATION: Evaluate anatomy. COMPARISON: 02/13/2024 TECHNIQUE: Real time thomas scale imaging of the fetus was performed as well as color Doppler analysis of the umbilical vessels. FINDINGS: Sonographic imaging demonstrates a single living intrauterine gestation. Fetus demonstrates a regular cardiac rate of 144 beats per minute. Fetus has a breech position. The placenta lies posteriorly without evidence of placenta previa. Placental edge 7.2 cm from the internal cervical os. Amniotic fluid volume appears normal. Single deepest vertical pocket: 5.7 cm. The cervix is closed and measures 3.6 cm in length. The composite ultrasound gestational age is calculated at 21 weeks 0 days with an estimated sonographic due date of 09/24/2024. The estimated weight is 394 grams which lies at the 31st %. The following biometric measurements were obtained: Biparietal diameter: 5.0 cm/21 weeks 0 days 37th% Head circumference: 18.3 cm/20 weeks 5 days 16th% Abdominal circumference: 16.2 cm/21 weeks 2 days 42nd% Femur length: 3.4 cm/20 weeks 6 days 25th% The HC/AC ratio measures: 1.13 range (1.06-1.25) On anatomic survey, there is a normal appearance of the cerebral ventricles, cavum septi pellucidi, cisterna magna and cerebellum. The nose, lips, and facial profile appear normal. The cervical, thoracic and lumbar spine are well visualized and appear normal. There is a normal four-chamber heart view and the left and right ventricular outflow tracts appear normal. The diaphragm and stomach appear normal. The kidneys and bladder also appear normal. There is a normal three-vessel cord and cord insertion site. The four extremities appear normal. IMPRESSION: Normal OB ultrasound exam with concordance of clinical and sonographic dating. No intrinsic abnormalities noted on anatomic survey. Dictated by Heriberto Aguirre MD @ 05/14/2024 2:25:59 PM (Electronically Signed)
== END 2024-05-14 12:48 | disposition home or self-care (01) ==
LOC: US 12:47
PROVIDERS: Visit Provider Obstetrics & Gynecology
DX: Z34.92 Encounter for supervision of normal pregnancy, unspecified, second trimester (principal); Z3A.21 21 weeks gestation of pregnancy
CPT/HCPCS: 76805

== ENCOUNTER 2024-06-30 09:05 | Outpatient (CLI) | payer OTHER, SELFPAY | END 2024-06-30 09:06 | disposition home or self-care (01) | PROVIDERS: Visit Provider Obstetrics & Gynecology | DX: Z67.11 Type A blood, Rh negative (principal) | CPT/HCPCS: J2791 ==

== ENCOUNTER 2024-07-02 08:30 | Outpatient (CLI) | payer OTHER, SELFPAY ==
--- OUTSIDE RECORDS SUMMARY | 2024-07-06 21:55 | XMS_ITS | Clinical Summary ---
Author Organization [facility] Address [place], [place] [address] Care Team Providers Care Drier Feeder Name Role Phone Pcp, No Primary Care [...] booster 2012 COVID-19 vaccine series ( season) 2024 Influenza for age 9-49 06/20/2024 Pap test for age 21-65 08/30/2024 08/30/2021 Pneumococcal series for age 6-64 Aged Out No longer eligible based on patient's age to complete this topic Procedures Procedure Name Priority Date/Time Associated Diagnosis Comments GOVERNMENT PROPERTY INSPECTOR THIN PREP PAP SCREEN IMAGED Routine 08/30/2021 9:30 AM MATHEMATICS LECTURER from Last 3 Months or Most Recently Relevant to Health Maintenance Results * GOVERNMENT PROPERTY INSPECTOR THIN PREP PAP SCREEN IMAGED (08/30/2021 9:30 AM MATHEMATICS LECTURER) Case Report Gynecologic Cytology Report ? Case: [id number] ? Authorizing Provider: ??Amy Richards PA-C ?Collected: ? 08/30/2021 0930 ? Ordering Location: ? [facility] ?Received: ?08/30/2021 1753 ? First Screen: ?Donnell Fowler ? Specimen: ?GOVERNMENT PROPERTY INSPECTOR ThinPrep Vial Screening, Cervical ? 09/18/2021 8:37 AM MATHEMATICS LECTURER [facility] [employer] LABORATORY-C ENTRAL LABORATORY INTERPRETATION/ RESULT NEGATIVE FOR INTRAEPITHELIAL LESION OR MALIGNANCY (NIL) (none) 09/18/2021 8:37 AM MATHEMATICS LECTURER [employer] LABORATORY-C ENTRAL LABORATORY IMEN ADEQUACY Satisfactory for evaluation No endocervical component seen 09/18/2021 8:37 AM MATHEMATICS LECTURER [facility] HPV REQUEST HPV if ASCUS 09/18/2021 8:37 AM MATHEMATICS LECTURER [facility] Additional Information 09/18/2021 8:37 AM MATHEMATICS LECTURER [facility] Comment: Interpreted at [facility] - [address], [place] [address] Automated Review Successful 09/18/2021 8:37 AM MATHEMATICS LECTURER [facility] Comment:Specimen processed s uccessfully by automated patient access representative device, ThinPrep Imaging System, [employer] Note The pap test is a screening technique, not a diagnostic procedure. It is used primarily to screen for squamous cancers and precursor lesions. Published studies have shown that it is subject to both false negative and false positive results. The pap test should not be used as the sole means to diagnose or exclude pre-malignant and malignant lesions. 09/18/2021 8:37 AM MATHEMATICS LECTURER [facility] Other (Cervical) 08/30/2021 9:30 AM MATHEMATICS LECTURER 08/30/2021 5:53 PM MATHEMATICS LECTURER January [facility] [address] [place] [address], from Last 3 Months or Most Recently Relevant to Health Maintenance Care Teams Drier Feeder Relationship Specialty Start Date End Date Pcp, No . PCP - General 09/24/18
--- OUTSIDE RECORDS SUMMARY | 2024-07-06 21:55 | XMS_ITS | Clinical Summary ---
Author Organization [facility] Address [address], [place] [address] Care Team Providers Care Kineseologist Name Role Phone Burt Lizsarahy Garvey APRN, [facility] Primary Care Provider [phone] Source Comments You are receiving this document as you are listed as the primary care provider,follow-up provider, or the patient has been referred to you for consultation.This is in compliance with the Medicare and[facility] EHR Incentive Program,which states Providers who transition their patient to another setting of careor provider of care or refers their patient to another provider of care shouldprovide summary care record for each transition of care or referral. [facility] Allergies No known active allergies Medications Medication [...] Comments Blood Pressure 111/76 11/16/2020 10:32 AM COMPOSITION PROFESSOR Pulse 70 11/16/2020 10:32 AM COMPOSITION PROFESSOR Temperature 37.2 ??C (99 ??F) 08/18/2014 10:40 AM CDT Respiratory Rate - - Oxygen Saturation - - Inhaled Oxygen Concentration - - Weight 63 kg (139 lb) 11/16/2020 10:32 AM COMPOSITION PROFESSOR Height 160 cm (5' 3) 11/16/2020 10:32 AM COMPOSITION PROFESSOR Body Mass Index 24.62 11/16/2020 10:32 AM COMPOSITION PROFESSOR Plan of Treatment Health Maintenance Due Date Last Done Comments Hep C Screening (Preventive Services) 1992 MTM Covered 1992 HIV Screening (Preventive Services) 2008 HepB (1) 01/04/2011 Adult Preventive Visit 07/30/2018 07/30/2016 Cervical Cancer Screening 07/30/20192015, 07/30/2016 (Completed) DTaP/Tdap/Td (2 - Tdap) 06/15/2023 06/15/2013 COVID-19 Vaccine (1 - 2023-2 5 season) 2024 Influenza (#1) 2024 Zoster/Shingles (1 of 2) [...] CDT FINAL GYNECOLOGICAL CYTOLOGY REPORT Pathology #: [id number] ?Date Obtained: 07/30/2016 ? Date Received: 07/31/2016 INTERPRETATION/RESULTS: Negative for Intraepithelial Lesion or Malignancy. SPECIMEN ADEQUACY: Satisfactory for Evaluation. ??Endocervical cells/transformation zone component present. Verified on 08/01/2016 ??by ALKA GOMEZ(ASCP) (electronic signature) CLINICAL NOTES: ?Abnormal bleeding: No, LMP: [id number], Menstrual status: None Apply, ?Current form of [...] and false-negative reports may occur. Performed at [address] [address] Edson Stover PA-C LAB_[address] PN SO[address] [place] [address] from Last 3 Months or Most Recently Relevant to Health Maintenance Care Teams Kineseologist Relationship Specialty Start Date End Date Liz [place], LUCAS, CNM [address] [place] [address] PCP - General Certified Nurse [employer] 11/22/20
--- OUTSIDE RECORDS SUMMARY | 2024-07-06 21:55 | XMS_ITS | Referral Summary ---
Author Organization [place] Address [facility] [place] [address] Care Team Providers Care Audit Senior Associate Name Role Phone [facility] [...] Comments Blood Pressure 110/70 11/20/2020 3:27 PM BLOCKER HEATED METAL FORMS Pulse 64 11/20/2020 3:27 PM BLOCKER HEATED METAL FORMS regul ar Temperature 36.4 ??C (97.5 ??F) 02/27/2013 7:21 PM CD T Respiratory Rate 14 02/27/2013 7:21 PM CDT Oxygen Saturation 99% 02/27/2013 8:30 PM CDT Inhaled Oxygen Concentration - - Weight 62.6 kg (138 lb) 11/20/2020 3:27 PM BLOCKER HEATED METAL FORMS Height 160 cm (5' 3) 11/20/2020 3:27 PM BLOCKER HEATED METAL FORMS Body Mass Index 24.45 11/20/2020 3:27 PM BLOCKER HEATED METAL FORMS Plan of Treatment Not on file Care Teams Audit Senior Associate Relationship Specialty Start Date End Date Gonsalo [facility] PCP - General 02/27/13
--- OUTSIDE RECORDS SUMMARY | 2024-07-06 21:55 | XMS_ITS | Clinical Summary ---
Author Organization [place] Address [address] [place] [address]. [place] [address] Care Team Providers Care Media Arts Professor Name Role Phone [facility] Primary Care Provider Allergies No known active allergies Medications Medication Sig Dispensed Refills Start Date End Date Status NO ACTIVE MEDICATIONS Act crecsencio Social History Tobacco Use Types Packs/Day Years [...] Comments Blood Pressure 110/70 11/20/2020 3:27 PM CLOUD AUTOMATION TESTER Pulse 64 11/20/2020 3:27 PM CLOUD AUTOMATION TESTER regul ar Temperature 36.4 ??C (97.5 ??F) 02/27/2013 7:21 PM CD T Respiratory Rate 14 02/27/2013 7:21 PM CDT Oxygen Saturation 99% 02/27/2013 8:30 PM CDT Inhaled Oxygen Concentration - - Weight 62.6 kg (138 lb) 11/20/2020 3:27 PM CLOUD AUTOMATION TESTER Height 160 cm (5' 3) 11/20/2020 3:27 PM CLOUD AUTOMATION TESTER Body Mass Index 24.45 11/20/2020 3:27 PM CLOUD AUTOMATION TESTER Plan of Treatment Not on file Care Teams Media Arts Professor Relationship Specialty Start Date End Date Gonsalo [facility] PCP - General 02/27/13
== END 2024-07-02 08:31 | disposition home or self-care (01) ==
LOC: NFLDREF 07-06 21:52
PROVIDERS: Visit Provider Obstetrics & Gynecology
DX: Z34.83 Encounter for supervision of other normal pregnancy, third trimester (principal)
CPT/HCPCS: 86592; 86850

== ENCOUNTER 2024-08-27 10:10 | Outpatient (CLI) | payer OTHER, SELFPAY ==
[2024-08-28 13:28] LABS: Strep B DNA Probe Negative (Negative)
[2024-08-28 13:39] LABS: Strep B Susceptibility Needed? No
== END 2024-08-27 10:11 | disposition home or self-care (01) ==
LOC: NFLDREF 10:10
PROVIDERS: PCP Physician Assistant Medical; Visit Provider Obstetrics & Gynecology
DX: Z34.93 Encounter for supervision of normal pregnancy, unspecified, third trimester (principal); Z3A.36 36 weeks gestation of pregnancy
CPT/HCPCS: 87081; 87653

== ENCOUNTER 2024-09-13 14:15 | Outpatient (RCR) | payer OTHER, SELFPAY ==
[2024-08-24 11:20] LABS: Albumin* 3.5 g/dL (3.3-5.0)
[2024-08-24 11:23] LABS: Aspartate Amino Transferase* 18 U/L (12-35); Bilirubin Direct* 0.1 mg/dL (0.0-0.5); Bilirubin Total* 0.2 mg/dL (0.1-1.5); Total Protein* 6.3 g/dL (6.0-8.3)
[2024-08-24 11:24] LABS: Alanine Aminotransferase* 16 U/L (4-35); Alkaline Phosphatase* 123 U/L (40-150)
[2024-08-24 11:47] LABS: Iron* 55 ug/dL (37-170)
[2024-08-24 11:56] LABS: Percent Iron Saturation 14 % (20-50); Total Iron Binding Capacity 385 ug/dL (265-497)
[2024-08-24 11:57] LABS: Ferritin* 18.5 ng/mL (6.24-137.0)
[2024-08-24 12:12] LABS: Vitamin B12* 320 pg/mL (243-894)
[2024-08-26 01:16] LABS: Folate, Serum >22.3 ng/mL (>=5.9)
[2024-08-26 03:37] LABS: Copper, Serum/Plasma 223.3 ug/dL (80.0-155.0)
[2024-09-13 14:27] LABS: Basophils Absolute Auto 0.02 K/uL (0.00-0.30); Basophils Percent Auto 0.3 % (0.0-3.0); Eosinophils Absolute Auto 0.04 K/uL (0.00-0.50); Eosinophils Percent Auto 0.7 % (0.0-7.0); Hematocrit 34.8 % (33.0-51.0); Hemoglobin* 11.7 gm/dL (12.0-16.0); Lymphocytes Percent Auto 22.4 % (20-44); Mean Corpuscular HGB Conc 34 gm/dL (32-36); Mean Corpuscular Hemoglobin 32 pg (26-34); Mean Corpuscular Volume 96 fL (80-100); Monocytes Percent Auto 5.5 % (0.0-11.0); Neutrophils Absolute Auto 4.13 K/uL (1.7-7.0); Neutrophils Percent Auto 71.1 % (42.0-72.0); Platelet Count* 100 K/uL (140-440); RDW Coefficient of Variation % 12.2 % (11.5-15.5); Red Blood Count 3.64 m/uL (4.00-5.20); White Blood Count* 5.81 K/uL (4.50-11.00)
[2024-09-13 14:28] LABS: Slide Review Reflex No
[2024-09-13 14:52] LABS: Albumin* 3.4 g/dL (3.3-5.0)
[2024-09-13 14:55] LABS: Aspartate Amino Transferase* 18 U/L (12-35); Bilirubin Total* 0.2 mg/dL (0.1-1.5); Total Protein* 6.1 g/dL (6.0-8.3)
[2024-09-13 14:56] LABS: Alanine Aminotransferase* 16 U/L (4-35); Alkaline Phosphatase* 138 U/L (40-150)
== END 2025-02-20 23:59 | disposition home or self-care (01) ==
LOC: CCIC 14:15
PROVIDERS: PCP Physician Assistant Medical; Referring Provider Physician Assistant Medical; Visit Provider Internal Medicine Hematology & Oncology
DX: O99.113 Other diseases of the blood and blood-forming organs and certain disorders involving the immune mechanism complicating pregnancy, third trimester (principal); D69.6 Thrombocytopenia, unspecified
CPT/HCPCS: 36415; 80076; 82525; 82607; 82728; 82746; 83540; 83550; 85025; 99202; 99203; 99204; 99213; 99214; G0463

== ENCOUNTER 2024-09-19 19:43 | Outpatient (CLI) | payer OTHER, SELFPAY ==
[2024-09-19 19:47] VITALS: BP 151/94; PULSE 80; PULSE 86; RESP 16; TEMP 36.6; O2SAT 99
[2024-09-19 19:52] VITALS: PULSE 76; O2SAT 99
[2024-09-19 19:57] VITALS: PULSE 70; O2SAT 98
[2024-09-19 19:58] VITALS: BP 135/83; PULSE 73
--- NOTE | 2024-09-19 21:03 | PC.OBNST ---
NST Note NST Note Start: 09/19/24 19:47 Freq: ONCE Status: Active Protocol: Document 09/19/24 19:47 BRM (Rec: 09/19/24 21:02 BRM Desktop) NST Note 4 Para (# of births) 1 EDC 09/22/24 Gestational Age In Weeks & Days 39 Weeks & 4 Days Patient Presented with Complaint(s) of Contractions/cramping Reactive Yes Appropriate for Gestational Age Yes MARINA Barakat Date 09/19/24 Reactive Yes Appropriate for Gestational Age Yes MARINA Wooten Date 09/19/24 OB NST charge Yes Complete NST Note via Write Note Yes The provider's electronic signature indicates the NST is reactive/appropriate for gestational age. *Note to provider: If an addendum is required, open the patient's chart and click on the note under the Nurse/Allied Health tab.
== END 2024-09-19 20:53 | disposition home or self-care (01) ==
LOC: OB LAC 19:44 → OB 19:45
PROVIDERS: PCP Physician Assistant Medical; Visit Provider Obstetrics & Gynecology
DX: Z39.1 Encounter for care and examination of lactating mother (principal)
CPT/HCPCS: 59025; G0463

== ENCOUNTER 2024-09-22 06:18 | Inpatient (IN) | payer OTHER, SELFPAY ==
[2024-09-22] VITALS (20 sets, daily range): BP systolic 109–141; BP diastolic 67–85; PULSE 62–102; RESP 16; TEMP 36.6–37.1; O2SAT 92–100; BMI 30.3
--- OUTSIDE RECORDS SUMMARY | 2024-09-22 04:41 | XMS_ITS | Clinical Summary ---
Author Organization [facility] Address [address] [place] [address]. [place] [address] Care Team Providers Care Hand Finisher Name Role Phone Tressa Brush [facility] Primary Care Provider Allergies No known active allergies Medications NO ACTIVE MEDICATIONS Active Social History Tobacco Use Types Packs/Day Years Used Date Smoking Tobacco: Former Smokeless Tobacco: Never Adolescent Education Answer Date Record ed Getting School Help Needed Not on file 07/20 Comments No Sex and Gender Information Value Date Recorded Sex Assigned at Not on file Legal Sex Female 3:19 AM FOOD SERVICE WORKER Gender Identity Not on file Sexual Orientation Not on file Last Filed Vital Signs Vital Sign Reading Time Taken Comments Blood Pressure 110/70 11/20/2020 3:27 PM FOOD SERVICE WORKER Pulse 64 11/20/2020 3:27 PM FOOD SERVICE WORKER regul ar Temperature 36.4 C (97.5 F) 02/27/2013 7:21 PM CDT Respiratory Rate 14 02/27/2013 7:21 PM CDT Oxygen Saturation 99% 02/27/2013 8:30 PM CDT Inhaled Oxygen Concentration - - Weight 62.6 kg (138 lb) 11/20/2020 3:27 PM FOOD SERVICE WORKER Height 160 cm (5' 3) 11/20/2020 3:27 PM FOOD SERVICE WORKER Body Mass Index 24.45 11/20/2020 3:27 PM FOOD SERVICE WORKER Plan of Treatment Not on file Insurance [facility] Care Teams Hand Finisher Relationship Specialty Start Date End Date [facility] PCP - General 02/27/13
--- OUTSIDE RECORDS SUMMARY | 2024-09-22 04:41 | XMS_ITS | Referral Summary ---
Author Organization [facility] Address [address] [place] [address]. [place] [address] Care Team Providers Care Detasseling Crew Supervisor Name Role Phone Tressa Brush Family [...] on file Legal Sex Female 3:19 AM GLOBAL PROGRAM DIRECTOR Gender Identity Not on file Sexual Orientation Not on file Last Filed Vital Signs Vital Sign Reading Time Taken Comments Blood Pressure 110/70 11/20/2020 3:27 PM GLOBAL PROGRAM DIRECTOR Pulse 64 11/20/2020 3:27 PM GLOBAL PROGRAM DIRECTOR regul ar Temperature 36.4 C (97.5 F) 02/27/2013 7:21 PM CDT Respiratory Rate 14 02/27/2013 7:21 PM CDT Oxygen Saturation 99% 02/27/2013 8:30 PM CDT Inhaled Oxygen Concentration - - Weight 62.6 kg (138 lb) 11/20/2020 3:27 PM GLOBAL PROGRAM DIRECTOR Height 160 cm (5' 3) 11/20/2020 3:27 PM GLOBAL PROGRAM DIRECTOR Body Mass Index 24.45 11/20/2020 3:27 PM GLOBAL PROGRAM DIRECTOR Plan of Treatment Not on file Insurance [facility] Care Teams Detasseling Crew Supervisor Relationship Specialty Start Date End Date [facility] PCP - General 02/27/13
--- OUTSIDE RECORDS SUMMARY | 2024-09-22 04:41 | XMS_ITS | Clinical Summary ---
Author Organization [facility] Address [place], [place] [address] Care Team Providers Care Glue Reel Operator Name Role Phone Pcp, No Primary Care [...] 82 03/15/2020 2:06 PM CDT Temperature 36.3 C (97.4 F) 03/15/2020 2:06 PM CDT Respiratory Rate 18 [...] 01/04/2010 Tetanus booster 2012 COVID-19 vaccine series (2023- season) 2024 Influenza for age 9-49 06/20/2024 Pap test for age 21-65 08/30/2024 08/30/2021 Pneumococcal series for age 6-64 Aged Out No longer eligible based on patient's age to complete this topic Procedures Procedure Name Priority Date/Time Associated Diagnosis Comments PUMP STATION OPERATOR THIN PREP PAP SCREEN IMAGED Routine 08/30/2021 9:30 AM EDGING SUPERVISOR from Last 3 Months or Most Recently Relevant to Health Maintenance Results * PUMP STATION OPERATOR THIN PREP PAP SCREEN IMAGED (08/30/2021 9:30 AM EDGING SUPERVISOR) Case Report Gynecologic Cytology Report Case: [id number] Authorizing Provider: Amy Richards PA-C Collected: 08/30/2021 0930 Ordering Location: [facility] Received: 08/30/2021 1753 First Screen: Donnell Fowler Specimen: PUMP STATION OPERATOR ThinPrep Vial Screening, Cervical 09/18/2021 8:37 AM EDGING SUPERVISOR [facility] INTERPRETATION/ RESULT NEGATIVE FOR INTRAEPITHELIAL LESION OR MALIGNANCY (NIL) (none) 09/18/2021 8:37 AM EDGING SUPERVISOR [employer] [facility] IMEN ADEQUACY Satisfactory for evaluation No endocervical component seen 09/18/2021 8:37 AM EDGING SUPERVISOR [facility] EN[facility]AL [facility] HPV REQUEST HPV if ASCUS 09/18/2021 8:37 AM EDGING SUPERVISOR [employer] [facility] Additional Information 09/18/2021 8:37 AM EDGING SUPERVISOR [employer] [facility] Comment: Interpreted at [facility] - [address] [place] [id number] Automated Review Successful 09/18/2021 8:37 AM EDGING SUPERVISOR [employer] [facility] EN[facility]AL LABORATORY Comment:Specimen processed s uccessfully by automated mortgage originator device, ThinPrep Imaging System, [employer] Note The pap test is a screening technique, not a diagnostic procedure. It is used primarily to screen for squamous cancers and precursor lesions. Published studies have shown that it is subject to both false negative and false positive results. The pap test should not be used as the sole means to diagnose or exclude pre-malignant and malignant lesions. 09/18/2021 8:37 AM EDGING SUPERVISOR [facility] EN[facility]AL LABORATORY Other (Cervical) 08/30/2021 9:30 AM EDGING SUPERVISOR 08/30/2021 5:53 PM EDGING SUPERVISOR January Maurice [facility]CYTOLOGY [facility]ORY [address] [place] [address], from Last 3 Months or Most Recently Relevant to Health Maintenance Care Teams Glue Reel Operator Relationship Specialty Start Date End Date Pcp, No . PCP - General 09/24/18
--- OUTSIDE RECORDS SUMMARY | 2024-09-22 04:41 | XMS_ITS | Clinical Summary ---
Author Organization [facility] Address [address] [address] Care Team Providers Care Community Service Organization Director Name Role Phone Burt Lizsarahy Garvey APRN, [facility] Primary Care Provider [phone] Source Comments You are receiving this document as you are listed as the primary care provider,follow-up provider, or the patient has been referred to you for consultation.This is in compliance with the Medicare and[facility] EHR Incentive Program,which states Providers who transition their patient to another setting of careor provider of care or refers their patient to another provider of care shouldprovide summary care record for each transition of care or referral. [facility] Allerg[facility] No known active allergies Medications Medication [...] Comments Blood Pressure 111/76 11/16/2020 10:32 AM SNAP ATTACHER Pulse 70 11/16/2020 10:32 AM SNAP ATTACHER Temperature 37.2 C (99 F) 08/18/2014 10:40 AM CDT Respiratory Rate - - Oxygen Saturation - - Inhaled Oxygen Concentration - - Weight 63 kg (139 lb) 11/16/2020 10:32 AM SNAP ATTACHER Height 160 cm (5' 3) 11/16/2020 10:32 AM SNAP ATTACHER Body Mass Index 24.62 11/16/2020 10:32 AM SNAP ATTACHER Plan of Treatment Health Maintenance Due Date Last Done Comments Hep C Screening (Preventive Services) 1992 HIV Screening (Preventive Services) 2008 HepB (1) 01/04/2011 Adult Preventive Visit 07/30/2018 07/30/2016 Cervical Cancer Screening 07/30/20192015, 07/30/2016 (Completed) DTaP/Tdap/Td (2 - Tdap) 06/15/2023 06/15/2013 COVID-19 Vaccine ( - 2023-2 5 season) 2024 Influenza (#1) [...] on patient's age to complete this topic Infant RSV Aged Out No longer eligi ble based [...] CDT FINAL GYNECOLOGICAL CYTOLOGY REPORT Pathology #: [id number] Date Obtained: 07/30/2016 Date Received: 07/31/2016 INTERPRETATION/RESULTS: Negative for Intraepithelial Lesion or Malignancy. SPECIMEN ADEQUACY: Satisfactory for Evaluation. Endocervical cells/transformation zone component present. Verified on 08/01/2016 by ALKA GOMEZ(ASCP) (electronic signature) CLINICAL NOTES: Abnormal bleeding: No, LMP: [id number], Menstrual status: None Apply, Current form of therapy: None apply LIQUID BASED PAP SMEAR SPECIMEN TYPE: ROUTINE CERVICAL PAP TEST PLEASE NOTE: The pap smear is a screening test designed to aid in the detection of cervical cancer and its precursor lesions. It is not a diagnostic procedure and should not be used as the sole means of detecting cervical cancer. Both false-positive and false-negative reports may occur. Performed at [address] [address] Edson Stover PA-C LAB_[address] [facility] [address] [place] [id number] from Last 3 Months or Most Recently Relevant to Health Maintenance Care Teams Community Service Organization Director Relationship Specialty Start Date End Date Liz Dallas, SAP DEVELOPER, CNM [address] [place] [id number] PCP - General Certified Nurse Dance Instructor 11/22/20
[2024-09-22 06:28] LABS: Basophils Absolute Auto 0.02 K/uL (0.00-0.30); Basophils Percent Auto 0.2 % (0.0-3.0); Eosinophils Absolute Auto 0.05 K/uL (0.00-0.50); Eosinophils Percent Auto 0.5 % (0.0-7.0); Hematocrit 36.8 % (33.0-51.0); Hemoglobin* 12.6 gm/dL (12.0-16.0); Immature Granulocytes Abs Auto 0.08 K/uL (0.00-0.30); Immature Granulocytes Pct Auto 0.8 %; Lymphocytes Percent Auto 14.5 % (20-44); Mean Corpuscular HGB Conc 34 gm/dL (32-36); Mean Corpuscular Hemoglobin 32 pg (26-34); Mean Corpuscular Volume 94 fL (80-100); Monocytes Percent Auto 6.4 % (0.0-11.0); Neutrophils Percent Auto 77.6 % (42.0-72.0); Platelet Count* 87 K/uL (140-440); Red Blood Count 3.93 m/uL (4.00-5.20); White Blood Count* 9.44 K/uL (4.50-11.00)
[2024-09-22] MEDS: OXYTOCIN 30 unit/500 ML in NS 30 UNIT/500 ML BAG 300 UNIT IVPB (06:31)
[2024-09-22 06:32] LABS: Slide Review Reflex No
--- NOTE | 2024-09-22 06:47 | W.PM.OBVAGDE ---
OB Procedure Vag Delivery Mother Details Mother Details: The patient is a 34 year-old, 4, Para 1, admitted on 09/22/24 at 40.0 weeks gestation. : 4 Para: 1 Weeks Gestation: 40.0 Admission Date: 09/22/24 Additional Details Amniotic Membrane Status: SROM Amniotic Membrane Rupture Date: 09/22/24 Amniotic Membrane Fluid Description: Clear Analgesia/Anesthesia Type: None Waterbirth: No Pitcoin: No Labor Onset: 02:00 Complete: 06:09 Pushin:24 Heart: heart tones during second stage were difficult to monitor, decelerations to the 80's were audible, pt was directed to take some deep breaths between contractions with an increase in FHR to 100's she was then coached to push longer more sustained pushes and she delivered shortly thereafter. Delivery Details Delivery Date: 09/22/24 Delivery Time: 06:30 Route of delivery: Infant Gender: Female Viability: Alive; Heart Rate Present Position at Delivery: OA Delivery Details: 34?y.o?at 40.0 weeks.? Patient stated her contractions started around 0200, she was examined by the RN and found to be 4 cm. On recheck she was complete and +1, pt moved to labor room and delivered shortly afterward. ? ? She became complete at 0609.??She pushed in semi fowlers and right tilt positions effectively.? Spontaneous vaginal delivery at 0630 of?a viable? female .??Delivered in vertex OA position.??Shoulders delivered easily.? Spontaneous cry noted.??Infant placed on maternal abdomen.??Cord?was clamped and cut after a 5+ minute delay.? Shoulder dystocia: no? Nuchal cord: no? Meconium stained?fluid: no? Water : no? ? Additional Details Shoulder Dystocia: No Procedure Done: Global Event Summary Status: Mother and infant were stable after delivery.
[2024-09-22] MEDS: LIDOCAINE 1 % PF 30 ML INJECTION (06:54)
--- NOTE | 2024-09-22 07:02 | P.LDBA_ITS ---
Subjective History of Present Illness Date Seen: 09/22/24 Narrative: Patient is being admitted to Labor and Delivery for labor. She is a 34 year old at 40.0 weeks gestation. Her full history and physical was dictated by [] on []. Please see this for details. [] Specific Issues/Plans G 4 P 1021 Partner: Seth Daughter: Ivanna. Baby: [place]! #Anemia and thrombocytopenia: hgb 10.3 and plts 125K at 28 wks * Ferrous sulfate QOD w/ meals * CBC at 34 weeks: platelets 106: referral to hematology * 09/14 heme consult: plts 100K. No recommended medications. Could consider 1 pk of platelets and 1upRBC's at delivery. * Check CBC on admission to the center. * Patient knows she may not be a candidate for an epidural if plts <100K on admission. (Some nub card tender's due epidurals if plts >/= 75k others use 100K) # History of GDM A1 * A1C: 5.3 (02/13/24) * Early 1 hour glucose 16-20 weeks: 81 (04/16/24) * 28-week glucose screen: 118 # History of ectopic with right salpingectomy # History of miscarriage September 2023. Current : dating from LMP and 1st OB ultrasound is off by 1 week. Increased anxiety. Encouraged her to come in for more frequent office visits of that would be helpful to her. # Due for Pap smear. # Possible listeria exposure at 12 weeks * Possible exposure (statistically unlikely) and mild sx of myalgia/nausea/diarrhea * Discussed potential blood/stool cultures and antibiotics, after shared decision making declined * f/u FAS (normal) # Rhogam given at first OB visit due to red vaginal spotting. Exam normal, ectropion cervix. Suspect the spotting came from her cervix. * Rh negative * Antibody screen positive at her first visit: Anti-D. (Patient received rhogam 10/02/23 = miscarriage & 02/16/24 = bleeding in early ) Imaging 1. 05/14/24 Normal survey. Immunizations: Flu: Declined Covid: Declined. Not vaccinated. RSV:08/13/2024 Tdap: 07/16/2024 Rhogam: 07/02/2024 GBS: pending 32 wk mental health: PHQ-9: 1, CLAUDIA-7: 1. 34 week hgb: 11.2 Comments: Assessment:??G[ ] P[ ] at [ ] weeks gestation?? GBS [negative/positive]? Patient is coping [] with challenges of labor.?? Labor type: [Induced/Spontaneous], [Early/Active] labor? Category [1, 2, 3] FHR pattern.? complicated by: [] Plan:?? * ?Admit to L & D? * IV access: * Monitoring per policy: [continuous or intermittent]? * Candidate for analgesia of choice.? Planning [] for pain management * [Desires waterbirth.? Consent signed and Hep C negative] * [Expectant management at this time] [Reviewed risks and benefits of IOL with Cook balloon, Pitocin vs Cytotec/Cervidil. Pt prefers Cytotec. Pitocin to follow if needed.] * [GBS prophylaxis initiated for GBS positive status. Will treat with antibiotics per protocol.] * [Monitor blood pressures. Consider labs if continue to be elevated.]? * Patient encouraged to reposition and ambulate to promote physiologic labor and . * Anticipate ? OB Exam Physical Exam Vital signs: Temp Pulse BP Pulse Ox 98.2 F 78 130/72 92 09/22/24 04:53 09/22/24 06:51 09/22/24 06:51 09/22/24 06:30 Detailed Labor and Delivery Exam Patient Gravid: Yes
--- NOTE | 2024-09-22 07:02 | W.PM.LDBA ---
Subjective History of Present Illness Date Seen: 09/22/24 Narrative: Patient is being admitted to Labor and Delivery for labor. She is a 34 year old at 40.0 weeks gestation. Her full history and physical was dictated by [] on []. Please see this for details. [] Specific Issues/Plans G 4 P 1021 Partner: Seth Daughter: Ivanna. Baby: [place]! #Anemia and thrombocytopenia: hgb 10.3 and plts 125K at 28 wks Ferrous sulfate QOD w/ meals CBC at 34 weeks: platelets 106: referral to hematology 09/14 heme consult: plts 100K. No recommended medications. Could consider 1 pk of platelets and 1upRBC's at delivery. Check CBC on admission to the center. Patient knows she may not be a candidate for an epidural if plts <100K on admission. (Some sorter/assay tech's due epidurals if plts >/= 75k others use 100K) # History of GDM A1 A1C: 5.3 (02/13/24) Early 1 hour glucose 16-20 weeks: 81 (04/16/24) 28-week glucose screen: 118 # History of ectopic with right salpingectomy # History of miscarriage September 2023. Current : dating from LMP and 1st OB ultrasound is off by 1 week. Increased anxiety. Encouraged her to come in for more frequent office visits of that would be helpful to her. # Due for Pap smear. # Possible listeria exposure at 12 weeks Possible exposure (statistically unlikely) and mild sx of myalgia/nausea/diarrhea Discussed potential blood/stool cultures and antibiotics, after shared decision making declined f/u FAS (normal) # Rhogam given at first OB visit due to red vaginal spotting. Exam normal, ectropion cervix. Suspect the spotting came from her cervix. Rh negative Antibody screen positive at her first visit: Anti-D. (Patient received rhogam 10/02/23 = miscarriage & 02/16/24 = bleeding in early ) Imaging 1. 05/14/24 Normal survey. Immunizations: Flu: Declined Covid: Declined. Not vaccinated. RSV:08/13/2024 Tdap: 07/16/2024 Rhogam: 07/02/2024 GBS: pending 32 wk mental health: PHQ-9: 1, CLAUDIA-7: 1. 34 week hgb: 11.2 Comments: Assessment:??G[ ] P[ ] at [ ] weeks gestation?? GBS [negative/positive]? Patient is coping [] with challenges of labor.?? Labor type: [Induced/Spontaneous], [Early/Active] labor? Category [1, 2, 3] FHR pattern.? complicated by: [] Plan:?? ?Admit to L & D? IV access: Monitoring per policy: [continuous or intermittent]? Candidate for analgesia of choice.? Planning [] for pain management [Desires waterbirth.? Consent signed and Hep C negative] [Expectant management at this time] [Reviewed risks and benefits of IOL with Cook balloon, Pitocin vs Cytotec/Cervidil. Pt prefers Cytotec. Pitocin to follow if needed.] [GBS prophylaxis initiated for GBS positive status. Will treat with antibiotics per protocol.] [Monitor blood pressures. Consider labs if continue to be elevated.]? Patient encouraged to reposition and ambulate to promote physiologic labor and . Anticipate ? OB Exam Physical Exam Vital signs: Temp Pulse BP Pulse Ox 98.2 F 78 130/72 92 09/22/24 04:53 09/22/24 06:51 09/22/24 06:51 09/22/24 06:30 Detailed Labor and Delivery Exam Patient Gravid: Yes
--- NOTE | 2024-09-22 07:06 | P.LDBA_ITS ---
Subjective History of Present Illness Date Seen: 09/22/24 Narrative: Patient is being admitted to Labor and Delivery in labor for delivery. She is a 34 year old at 4 0/7 weeks gestation. Her full history and physical was dictated by Dr. Maldonado on 09/03/24. Please see this for details. Patient states that she started to experience painful uterine contractions at around 3:30am this morning. Patient arrived at labor and delivery was found 4cm dilated and upon re check in less than 1 hour she was found complete and +1 station. Specific Issues/Plans G 4 P 1021 Partner: Seth Daughter: Ivanna. Baby: [place]! #Anemia and thrombocytopenia: hgb 10.3 and plts 125K at 28 wks * Ferrous sulfate QOD w/ meals * CBC at 34 weeks: platelets 106: referral to hematology * 09/14 heme consult: plts 100K. No recommended medications. Could consider 1 pk of platelets and 1upRBC's at delivery. * Check CBC on admission to the center. * Patient knows she may not be a candidate for an epidural if plts <100K on admission. (Some mortuary operations manager's due epidurals if plts >/= 75k others use 100K) # History of GDM A1 * A1C: 5.3 (02/13/24) * Early 1 hour glucose 16-20 weeks: 81 (04/16/24) * 28-week glucose screen: 118 # History of ectopic with right salpingectomy # History of miscarriage September 2023. Current : dating from LMP and 1st OB ultrasound is off by 1 week. Increased anxiety. Encouraged her to come in for more frequent office visits of that would be helpful to her. # Due for Pap smear. # Possible listeria exposure at 12 weeks * Possible exposure (statistically unlikely) and mild sx of myalgia/nausea/diarrhea * Discussed potential blood/stool cultures and antibiotics, after shared decision making declined * f/u FAS (normal) # Rhogam given at first OB visit due to red vaginal spotting. Exam normal, ectropion cervix. Suspect the spotting came from her cervix. * Rh negative * Antibody screen positive at her first visit: Anti-D. (Patient received rhogam 10/02/23 = miscarriage & 02/16/24 = bleeding in early ) Imaging 1. 05/14/24 Normal survey. Immunizations: Flu: Declined Covid: Declined. Not vaccinated. RSV:08/13/2024 Tdap: 07/16/2024 Rhogam: 07/02/2024 GBS: pending 32 wk mental health: PHQ-9: 1, CLAUDIA-7: 1. 34 week hgb: 11.2 OB - Problem Based A/P Additional Plan (1) Thrombocytopenia affecting : Status: Acute (2) care: Status: Acute Plan Patient admitted in active labor for delivery. CNM was in unit and assisted delivery. Please refer to this note for further details. OB Exam Physical Exam Vital signs: Temp Pulse BP Pulse Ox 98.2 F 78 130/72 92 09/22/24 04:53 09/22/24 06:51 09/22/24 06:51 09/22/24 06:30 Detailed Labor and Delivery Exam Patient Gravid: Yes Dilation (cm): 10 Effacement (%): 100 Cervix position: mid Contraction intensity: Strong/Firm
[2024-09-22] MEDS: IBUPROFEN 600 MG TABLET PO ×2 (16:14→23:21)
[2024-09-23 02:48] VITALS: BP 111/75; PULSE 65; RESP 16; TEMP 36.4; O2SAT 97
[2024-09-23 06:58] VITALS: BP 108/69; PULSE 64; RESP 18; O2SAT 97
[2024-09-23] MEDS: IBUPROFEN 600 MG TABLET PO (07:00)
--- NOTE | 2024-09-23 08:55 | P.DS_ITS ---
DS: Providers Provider Date Seen: 09/23/24 Date of admission: 09/22/24 06:18 Primary care physician: Ban Fulton PA-C Admitting Clinician: Kadie Griggs MD Attending Physician on discharge: Rogelio CALERO APRN Date of Discharge: 09/23/24 DS: Diagnosis Discharge Diagnosis (1) care and examination of lactating mother: Status: Acute Exam Narrative: Exam Narrative: GENERAL APPEARANCE:? normal affect, alert, no distress MOOD:? appropriate CHEST:? clear to auscultation HEART:? regular rate and rhythm ABDOMEN:? soft, non-tender the uterine fundus is 2 cm below Umbilicus, Midline and is appropriate for the stage of recovery. PERINEUM:? minimal edema of the perineum, there is a Perineal Laceration that is healing well. EXTREMITIES:? normal and minimal edema Const: Vital Signs, click to edit/add: Vital Signs - 24 hr 09/22/24 12:30 09/22/24 16:10 09/22/24 19:30 Temperature 98.7 F 98.2 F 98.3 F Pulse Rate [Pulse Oximeter] 88 81 69 Respiratory Rate 16 16 16 Blood Pressure [Le ft Arm] 116/76 119/75 123/79 Pulse Oximetry 97 97 Oxygen Delivery Me thod Room Air Room Air Room Air 09/22/24 23:36 09/23/24 02:48 09/23/24 06:58 Temperature 97.9 F 97.6 F Pulse Rate [Pulse Oximeter] 64 65 64 Respiratory Rate 16 16 18 Blood Pressure [Le ft Arm] 117/70 111/75 108/69 Pulse Oximetry 97 97 97 Oxygen Delivery Me thod Room Air Room Air Room Air OB - DS: Summary Hospital Course Hospital Course: Yuliet is a 34 y.o. G 4 P 2021 who was admitted to [facility] for active labor.? She had a NVD that was uncomplicated. The patient feels well.? The pain is well controlled with current medications.? She has no new complaints.? She is breast feeding and reports things are going well. the patient has done well.? Vitals have been stable.? She has remained afebrile.? Has a good appetite, is tolerating a general diet.? She is voiding without difficulty.? She is passing gas and has not had a bowel movement.? She is ambulating and denies any dizziness.? Has small amount of rubra lochia. She is planning condoms for prevention.? ?? Problems: none, Gestational thrombocytopenia stable with last platelet level at 87? ?? plan:? Discharge home with baby.? Follow up in 2 weeks and 6 weeks.? , may see if needed? Hgb 11.0. ? Labs WNL or stable with trending? Call for signs/symptoms of preeclampsia? ? Peripartum Data Infant delivery method: Vaginal Laceration description: Perineal - 2nd Degree Episiotomy description: None complications: none Infant Gender: Female Discharge Plan: Home Status at Discharge Overall status at discharge: patient is progressing back to baseline Time Spent with Patient Time attestation: Total time spent providing and/or coordinating discharge services: Time spent: Less than 30 minutes Discharge Plan Discharge Disposition: Home, Self-Care Date of Admission: 09/22/24 06:18 Attending Provider on Discharge: Radha Avalos Primary Care Provider: Ban Fulton Condition: Stable Anticipated Discharge Date/Time: 09/23/24 08:55 Discharge Medications: Continued prenat.vits,david,jti-xxue-yyfor 1 tab PO DAILY mecobalamin (vitamin B12) 1,000 mcg tablet,chewable 1,000 mcg PO QDAY Qty: 60 0RF Discontinued ferrous sulfate [Feosol] 325 mg (65 mg iron) tablet 325 mg PO Q OTHER DAY Discharge Orders: Discharge Order (Routine); Ordered 09/23/24 Ordered By: Radha Avalos Patient Education: OB Care, OB Vaginal/Breast Feeding Additional Instructions: Discharge instructions were reviewed with the patient including signs and symptoms of infection and home going medications Nothing vaginally for 6 weeks: no tampons or intercourse Do not drive while taking narcotic pain medication(s) Off Work or School for 6 weeks Symptoms to report to doctor: * Bleeding that saturates more than one pad per hour * Passing clots larger than the size of a golf ball * Pain not relieved by prescribed medication * Fever above 100.4 degrees Fahrenheit * A foul vaginal odor * Difficulty in emotions, mood, and functions * Thoughts of hurting yourself and/or * Painful, reddened area in your breast * Any drainage, redness, or tenderness in your IV/epidural site * Severe headache that doesn't improve after taking medications * Changes in vision, including temporary loss of vision, blurred vision, and/or light sensitivity * Upper abdominal pain (usually under ribs on the right side) * Decrease in urination or painful, frequent urinating * Chest pain * Shortness of breath * Tenderness or pain with redness and/swelling in the calf(s) of your leg 2-week visit: discuss infant feeding concerns, review control options and screen for anxiety/depression. 6-week visit for an annual exam. consultation services are available to all mothers and babies for the first year after delivery.? To make an appointment, please call [phone].? For pain control of perineum, breast and pelvic pain, take 600 mg Ibuprofen every 6 hours as needed by mouth or 1000 mg acetaminophen (Tylenol) every 6 hours by mouth as needed. You can alternate these so you are taking something every 3 hours as needed. A heating pad can also be used for your abdomen or breasts. You may also take docusate sodium up to twice daily to soften your stools and help to prevent constipation. You may wean off of it when your stools return to normal.? Activity Level: Activity as Tolerated Discharge Diet: Regular Follow Up Appointments: Ban Fulton PA-C [Primary Care Provider] - Forms: MyHealth Info Instructions
[2024-09-23] MEDS: DOCUSATE SODIUM 100 MG CAPSULE PO (09:15)
[2024-09-24 00:46] LABS: Rapid Plasma Reagin (RPR) Non Reactive (Non Reactive)
--- OUTSIDE RECORDS SUMMARY | 2024-09-24 10:45 | XMS_ITS | Clinical Summary ---
[facility] Organization [facility] Address [address] [address] Care Team Providers Care Manufacturing Management Associate Name Role Phone Burt Lizsarahy Garvey APRN, [facility] Primary Care Provider [phone] Source Comments You are receiving this document as you are listed as the primary care provider,follow-up provider, or the patient has been referred to you for consultation.This is in compliance with the Medicare and[facility] EHR Incentive Program,which states Providers who transition their patient to another setting of careor provider of care or refers their patient to another provider of care shouldprovide summary care record for each transition of care or referral. [facility] All[facility] No known active allergies Medications Medication [...] Comments Blood Pressure 111/76 11/16/2020 10:32 AM WEB DESIGN INTERN Pulse 70 11/16/2020 10:32 AM WEB DESIGN INTERN Temperature 37.2 C (99 F) 08/18/2014 10:40 AM CDT Respiratory Rate - - Oxygen Saturation - - Inhaled Oxygen Concentration - - Weight 63 kg (139 lb) 11/16/2020 10:32 AM WEB DESIGN INTERN Height 160 cm (5' 3) 11/16/2020 10:32 AM WEB DESIGN INTERN Body Mass Index 24.62 11/16/2020 10:32 AM WEB DESIGN INTERN Plan of Treatment Health Maintenance Due Date [...] CDT FINAL GYNECOLOGICAL CYTOLOGY REPORT Pathology #: [id number] Date Obtained: 07/30/2016 Date Received: 07/31/2016 INTERPRETATION/RESULTS: Negative for Intraepithelial Lesion or Malignancy. SPECIMEN ADEQUACY: Satisfactory for Evaluation. Endocervical cells/transformation zone component present. Verified on 08/01/2016 by ALKA GOMEZ(ASCP) (electronic signature) CLINICAL NOTES: Abnormal bleeding: No, LMP: [id number], Menstrual status: None Apply, Current form of [...] and false-negative reports may occur. Performed at [address] [address] Edson Stover PA-C LAB_[address] [place] [id number] from Last 3 Months or Most Recently Relevant to Health Maintenance Care Teams Manufacturing Management Associate Relationship Specialty Start Date End Date Liz Dallas, [employer], CNM [address] [place] [id number] PCP - General Certified Nurse Head Of Strategy 11/22/20
--- OUTSIDE RECORDS SUMMARY | 2024-09-24 10:45 | XMS_ITS | Clinical Summary ---
Author Organization [facility] Address [address] [place] [address]. [place] [address] Care Team Providers Care Mechatronics Technician Name Role Phone Tressa Brush [facility] Primary Care Provider Allergies No [...] on file Legal Sex Female 3:19 AM SENIOR QUALITY MANAGER Gender Identity Not on file Sexual Orientation Not on file Last Filed Vital Signs Vital Sign Reading Time Taken Comments Blood Pressure 110/70 11/20/2020 3:27 PM SENIOR QUALITY MANAGER Pulse 64 11/20/2020 3:27 PM SENIOR QUALITY MANAGER regul ar Temperature 36.4 C (97.5 F) 02/27/2013 7:21 PM CDT Respiratory Rate 14 02/27/2013 7:21 PM CDT Oxygen Saturation 99% 02/27/2013 8:30 PM CDT Inhaled Oxygen Concentration - - Weight 62.6 kg (138 lb) 11/20/2020 3:27 PM SENIOR QUALITY MANAGER Height 160 cm (5' 3) 11/20/2020 3:27 PM SENIOR QUALITY MANAGER Body Mass Index 24.45 11/20/2020 3:27 PM SENIOR QUALITY MANAGER Plan of Treatment Not on file Insurance [facility] Care Teams Mechatronics Technician Relationship Specialty Start Date End Date [facility] PCP - General 02/27/13
--- OUTSIDE RECORDS SUMMARY | 2024-09-24 10:45 | XMS_ITS | Clinical Summary ---
Author Organization [facility] Address [place], [place] [address] Care Team Providers Care Fabrication Department Supervisor Name Role Phone Pcp, No Primary Care [...] Procedure Name Priority Date/Time Associated Diagnosis Comments HYDROLOGIC ENGINEER THIN PREP PAP SCREEN IMAGED Routine 08/30/2021 9:30 AM DRIVER HELPER from Last 3 Months or Most Recently Relevant to Health Maintenance Results * HYDROLOGIC ENGINEER THIN PREP PAP SCREEN IMAGED (08/30/2021 9:30 AM DRIVER HELPER) Case Report Gynecologic Cytology Report Case: [id number] Authorizing Provider: Amy Richards PA-C Collected: 08/30/2021 0930 Ordering Location: [facility] Received: 08/30/2021 1753 First Screen: Donnell Fowler Specimen: HYDROLOGIC ENGINEER ThinPrep Vial Screening, Cervical 09/18/2021 8:37 AM DRIVER HELPER [facility] ENTRAL LABORATORY INTERPRETATION/ RESULT NEGATIVE FOR INTRAEPITHELIAL LESION OR MALIGNANCY (NIL) (none) 09/18/2021 8:37 AM DRIVER HELPER [facility] IMEN ADEQUACY Satisfactory for evaluation No endocervical component seen 09/18/2021 8:37 AM DRIVER HELPER [facility] ENTRAL LABORATORY HPV REQUEST HPV if ASCUS 09/18/2021 8:37 AM DRIVER HELPER [facility] Additional Information 09/18/2021 8:37 AM DRIVER HELPER [facility] Comment: Interpreted at [facility] - [address] [place] [id number] Automated Review Successful 09/18/2021 8:37 AM DRIVER HELPER [facility] ENTRAL LABORATORY Comment:Specimen processed s uccessfully by automated sports announcer device, ThinPrep Imaging System, [employer] Note The pap test is a screening technique, not a diagnostic procedure. It is used primarily to screen for squamous cancers and precursor lesions. Published studies have shown that it is subject to both false negative and false positive results. The pap test should not be used as the sole means to diagnose or exclude pre-malignant and malignant lesions. 09/18/2021 8:37 AM DRIVER HELPER [facility] ENTRAL LABORATORY Other (Cervical) 08/30/2021 9:30 AM DRIVER HELPER 08/30/2021 5:53 PM DRIVER HELPER January Maurice [facility] [address] [place] [address], from Last 3 Months or Most Recently Relevant to Health Maintenance Care Teams Fabrication Department Supervisor Relationship Specialty Start Date End Date Pcp, No . PCP - General 09/24/18
--- OUTSIDE RECORDS SUMMARY | 2024-09-24 10:46 | XMS_ITS | Referral Summary ---
Author Organization [facility] Address [address] [place] [address]. [place] [address] Care Team Providers Care Equipment Maintenance Supervisor Name Role Phone Tressa Brush Family [...] on file Legal Sex Female 3:19 AM CEMENT SPRAYER HELPER Gender Identity Not on file Sexual Orientation Not on file Last Filed Vital Signs Vital Sign Reading Time Taken Comments Blood Pressure 110/70 11/20/2020 3:27 PM CEMENT SPRAYER HELPER Pulse 64 11/20/2020 3:27 PM CEMENT SPRAYER HELPER regul ar Temperature 36.4 C (97.5 F) 02/27/2013 7:21 PM CDT Respiratory Rate 14 02/27/2013 7:21 PM CDT Oxygen Saturation 99% 02/27/2013 8:30 PM CDT Inhaled Oxygen Concentration - - Weight 62.6 kg (138 lb) 11/20/2020 3:27 PM CEMENT SPRAYER HELPER Height 160 cm (5' 3) 11/20/2020 3:27 PM CEMENT SPRAYER HELPER Body Mass Index 24.45 11/20/2020 3:27 PM CEMENT SPRAYER HELPER Plan of Treatment Not on file Insurance [facility] Care Teams Equipment Maintenance Supervisor Relationship Specialty Start Date End Date [facility] PCP - General 02/27/13
== END 2024-09-23 11:16 | disposition home or self-care (01) | DRG 807 ==
LOC: OB OUT 06:19 → OB 08:59
PROVIDERS: Admitting Provider Obstetrics & Gynecology; PCP Physician Assistant Medical; Visit Provider Obstetrics & Gynecology
DX: O99.12 Other diseases of the blood and blood-forming organs and certain disorders involving the immune mechanism complicating childbirth (principal); Z37.0 Single live birth; D69.6 Thrombocytopenia, unspecified; O76 Abnormality in fetal heart rate and rhythm complicating labor and delivery; O70.1 Second degree perineal laceration during delivery; O99.02 Anemia complicating childbirth; D64.9 Anemia, unspecified; O26.893 Other specified pregnancy related conditions, third trimester; Z67.11 Type A blood, Rh negative; Z86.32 Personal history of gestational diabetes; Z3A.40 40 weeks gestation of pregnancy
CPT/HCPCS: 36415; 85018; 85025; 86592; 86850; 86870; 86880; 86900; 86901; 86922; G0463; A9270; J2003

== ENCOUNTER 2024-10-01 10:33 | Outpatient (CLI) | payer OTHER, SELFPAY ==
--- NOTE | 2024-10-01 11:35 | P.LACCB_ITS ---
Consult Note - Mom Date of Visit Date of visit: 10/01/24 Reason for consultation: Other (lump in left armpit for 5 days; not sure if related to or not) Visit Code: Visit Patient's Information Phone number: [phone] : 4 Para: 2 Allergies No Known Drug Allergies Allergy (Verified 10/01/24 10:41) Mother's Medical History: Medical History (Updated 09/25/24 @ 00:01 by Background Sussy) Family hx of melanoma ?Z80.8 - Family history of malignant neoplasm of other organs or systems (ICD-10) URI (upper respiratory infection) ?J06.9 - Acute upper respiratory infection, unspecified (ICD-10) History of gestational diabetes in prior , currently ?O09.299 - Supervision of with other poor reproductive or obstetric history, unspecified trimester (ICD-10) ?Z86.32 - Personal history of gestational diabetes (ICD-10) SAB (spontaneous ) ?O03.9 - Complete or unspecified spontaneous without complication (ICD-10) abnormality affecting management of mother, single gestation ?O35.9XX0 - Maternal care for (suspected) abnormality and damage, unspecified, not applicable or unspecified (ICD-10) GDM, class A1 ?O24.410 - Gestational diabetes mellitus in , diet controlled (ICD- 10) Rh incompatibility in , delivered ?O36.0990 - Maternal care for other rhesus isoimmunization, unspecified trimester, not applicable or unspecified (ICD-10) Delivery Information Delivery type: Vaginal Gestational Age: 40 weeks Weight: 3.495 kg Baby's Information Baby's Age at Visit: 9 days Jaundice: No Pumping Pumping: No Supplementing EBM Supplement: No Formula Supplement: No Breast/Nipple Condition Breast Information: Breasts are symmetrical with rounded lower quadrants, intramammary distance is less than 1.5 inches. No erythema. Nipples are supple, everted prior to feeding. Lump under left breast; 3 cm long by 2/5 cm wide, firm to touch with well circumscribed edges. No erythema noted. Left breast without redness, engorgement, or plugged ducts noted. Lump noted 5 days ago, has increased in size since first noted. Lump does not change/shrink in size with or massage. Yuliet does report it is tender to touch. Breast Shape: Round Engorgement: No Maternal Nipple Condition - Left: Common Nipple (slight redness noted, no scabs or open wounds) Maternal Nipple Condition - Right: Common Nipple (slight redness noted, no scabs or open wounds) Onsite Observation Position: Cross cradle Attachment/latch-on achieved: Easily Suck pattern: Suck burst and normal rest Swallow: Audible, consistent Behavior following feed: Relaxed, sleepy Pre-Nursing Left Nipple: Within Normal Limits Pre-Nursing Right Nipple: Within Normal Limits Post-Nursing Left Nipple: Within Normal Limits Post-Nursing Right Nipple: Within Normal Limits Assessments/Interventions Assessments/Interventions: Unidentified lump of left axillae; unsure if it is swollen near the tail of hughes Discussed with Jackie Sheldon who recommends [facility] and ultrasound today Appt made for 10/01/24 Follow-Up Recommend mom be seen by provider for:: Evaluation of new lump in armpit Time Spent Time spent with patient (min): 45 Meds Home Medications and Allergies Home Medications ?Medication ?Instructions ?Recorded ?Confirmed ?Type prenat.vits,david,egs-xrax-yjuat 1 tab PO DAILY 04/19/22 10/01/24 History ferrous sulfate 325 mg (65 mg 325 mg PO .QOD 10/01/24 10/01/24 History iron) tablet Allergies Allergy/AdvReac Type Severity Reaction Status Date / Time No Known Drug Allergies Allergy Verified 10/01/24 10:41
== END 2024-10-01 10:34 | disposition home or self-care (01) ==
LOC: OB LAC 10:34
PROVIDERS: PCP Physician Assistant Medical; Visit Provider Obstetrics & Gynecology
DX: Z39.1 Encounter for care and examination of lactating mother (principal)
CPT/HCPCS: G0463

== ENCOUNTER 2024-11-03 09:30 | Outpatient (CLI) | payer OTHER, SELFPAY ==
[2024-11-05 09:21] LABS: HPV Source Cervix; HPV, High Risk by TMA Detected
[2024-11-05 18:17] LABS: HPV Genotype 16 by TMA Detected; HPV Genotype 18/45 by TMA Not Detected; HPVG Source Cervix
== END 2024-11-03 09:31 | disposition home or self-care (01) ==
PROVIDERS: PCP Physician Assistant Medical; Visit Provider Registered Nurse
DX: Z12.4 Encounter for screening for malignant neoplasm of cervix (principal)
CPT/HCPCS: 87624; 87625; 88141; 88142

== ENCOUNTER 2025-09-14 08:54 | Outpatient (CLI) | payer OTHER, SELFPAY ==
[2025-09-14 14:38] LABS: Bacterial Vaginosis* Negative (Negative); Candida glab/krus NOT DETECTED (No Detected)
== END 2025-09-14 08:55 | disposition home or self-care (01) ==
LOC: NFLDREF 08:55
PROVIDERS: PCP Physician Assistant Medical; Visit Provider Registered Nurse
DX: N89.8 Other specified noninflammatory disorders of vagina (principal)
CPT/HCPCS: 81513; 87481; 87661